=== PATIENT | female | born 1960 | race Caucasian/White ===

== ENCOUNTER → 2017-12-24 12:11 | Outpatient (CLI) | payer BC, SELFPAY ==
[2017-12-24 13:38] LABS: HCT 42.7 % (36.0-46.0); HGB 14.4 g/dL (12.0-15.5); Mean Corp. HGB Concentration 33.7 g/dL (32.0-36.0); Mean Corpuscular Volume 91.8 fL (80-95); Mean Platelet Volume 9.5 fL (8.0-11.0); Platelet Count 391 x1000/uL (130-400); RBC 4.65 m/cumm (4.00-5.20); RBC Distribution Width 13.4 % (11.7-14.6); White Blood Cell Count 5.62 k/cumm (4.4-10.8)
[2017-12-24 13:47] LABS: D-Dimer 278 ng/mlFEU (<500)
[2017-12-24 14:12] LABS: Anion Gap 12.7 mmol/L (3-11); BUN 25 mg/dL (7-18); C-Reactive Protein 0.45 mg/dL (0.0-0.3); CO2 27.3 mmol/L (21.0-32.0); CREATININE 0.85 mg/dL (0.55-1.02); Calcium 10.2 mg/dL (8.5-10.1); Chloride 99 mmol/L (98-107); FREE T4 1.07 ng/dL (0.76-1.46); Glucose 111 mg/dL (70-100); Potassium 3.7 mmol/L (3.5-5.1); Sodium 139 mmol/L (136-145); TSH 1.01 uIU/mL (0.358-3.74)
[2017-12-25 13:08] LABS: Ferritin 1376 ng/mL (8-388)
[2017-12-26 09:52] LABS: Transferrin 290 mg/dL (201-352)
[2017-12-26 11:42] LABS: Metanephrine, Free <0.20 nmol/L (<0.50); Normetanephrine, Free 0.63 nmol/L (<0.90)
== END ==
PROVIDERS: PCP Emergency Medicine; Visit Provider Emergency Medicine
DX: R79.89 Other specified abnormal findings of blood chemistry (principal); R23.2 Flushing; D64.9 Anemia, unspecified
CPT/HCPCS: 36415; 80048; 85027; 82728; 83835; 84439; 84443; 84466; 85379; 86140

== ENCOUNTER → 2017-12-26 10:07 | Outpatient (REF) | payer BC, SELFPAY ==
[2017-12-28 15:12] LABS: Metanephrines, U 106 mcg/24 h; Normetanephrine, U 533 mcg/24 h; Total Metanephrines, U 639 mcg/24 h; Urine Volume 2350 mL
[2017-12-31 09:07] LABS: 5-Hydroxyindoleacetic Acid, U 4.7 mg/24 h (<=8.0); Urine Volume 2350 mL
== END ==
LOC: LBN 10:07
PROVIDERS: PCP Emergency Medicine; Visit Provider Emergency Medicine
DX: R23.2 Flushing (principal)
CPT/HCPCS: 81050; 83497; 83835

== ENCOUNTER → 2017-12-27 10:20 | Outpatient (CLI) | payer BC, SELFPAY ==
[2017-12-27 13:14] LABS: Creatine Kinase 158 U/L (26-192)
[2017-12-27 15:22] LABS: ESR 16 MM/HR (0-30)
[2017-12-27 16:35] LABS: Ferritin 1406 ng/mL (8-388)
[2017-12-30 11:06] LABS: Transferrin 267 mg/dL (201-352)
== END ==
PROVIDERS: PCP Emergency Medicine; Visit Provider Emergency Medicine
DX: R53.83 Other fatigue (principal)
CPT/HCPCS: 36415; 82550; 85652; 82728; 84466

== ENCOUNTER → 2018-01-02 14:59 | Outpatient (CLI) | payer BC, SELFPAY ==
[2018-01-02 16:14] LABS: Iron 79 ug/dL (50-175); Total Iron Binding Capacity 283 ug/dL (250-450); Transferrin Sat 28 % (15-50)
[2018-01-02 16:27] LABS: Ferritin 806 ng/mL (8-388)
== END ==
PROVIDERS: PCP Emergency Medicine; Visit Provider Emergency Medicine
DX: D64.9 Anemia, unspecified (principal)
CPT/HCPCS: 36415; 82728; 83540; 83550

== ENCOUNTER 2018-01-22 02:20 | Outpatient (CLI) | payer BC, SELFPAY ==
--- NOTE | 2018-01-22 15:47 | DI.MAMMO_ITS ---
SYMPTOM/DIAGNOSIS: SCREENING, Z12.31 MAMMOGRAM: Mammograms were interpreted according to the usual protocol including computer analysis with CAD system, tomosynthesis and C view imaging. Comparison with prior examinations. Breast density C. No masses or microcalcifications are seen. There is nothing to suggest malignancy. IMPRESSION: Negative mammogram. Routine screening is recommended. Category I. MQSA ASSESSMENT OF FINDINGS: Negative. Category 1. Patient will receive a letter notifying them of these results. Bi-RADS category C. The breasts are heterogeneously dense, which may obscure small masses.
== END 2018-01-22 02:40 ==
PROVIDERS: PCP Emergency Medicine; Visit Provider Nurse Practitioner Family
DX: Z12.31 Encounter for screening mammogram for malignant neoplasm of breast (principal)
CPT/HCPCS: 77063; 77067

== ENCOUNTER 2018-02-12 08:46 | Outpatient (CLI) | payer BC, SELFPAY ==
[2018-02-12 10:15] LABS: Iron 105 ug/dL (50-175); Total Iron Binding Capacity 326 ug/dL (250-450); Transferrin Sat 32 % (15-50)
[2018-02-12 11:01] LABS: Ferritin 800 ng/mL (8-388)
== END 2018-02-12 09:06 ==
PROVIDERS: PCP Emergency Medicine; Visit Provider Emergency Medicine
DX: D64.9 Anemia, unspecified (principal); R79.89 Other specified abnormal findings of blood chemistry
CPT/HCPCS: 36415; 82728; 83540; 83550

== ENCOUNTER 2018-03-06 14:36 | Outpatient (CLI) | payer BC, SELFPAY ==
[2018-03-06 15:50] LABS: ALT 68 U/L (12-78); AST 30 U/L (15-37); Albumin 3.8 g/dL (3.4-5.0); Alkaline Phosphatase 61 U/L (46-116); Anion Gap 9.6 mmol/L (3-11); BUN 17 mg/dL (7-18); Bilirubin, Total 0.7 mg/dL (0.2-1.0); CO2 29.4 mmol/L (21.0-32.0); CREATININE 0.83 mg/dL (0.55-1.02); Calcium 9.5 mg/dL (8.5-10.1); Chloride 100 mmol/L (98-107); Glucose 107 mg/dL (70-100); Potassium 3.9 mmol/L (3.5-5.1); Sodium 139 mmol/L (136-145); Total Protein 7.7 g/dL (6.4-8.2)
[2018-03-13 16:56] LABS: Specimen WB Whole Blood
== END 2018-03-06 14:56 ==
PROVIDERS: PCP Emergency Medicine; Visit Provider Internal Medicine Hematology & Oncology
DX: R79.89 Other specified abnormal findings of blood chemistry (principal)
CPT/HCPCS: 36415; 80053; 81256

== ENCOUNTER 2018-04-09 16:40 | Outpatient (CLI) | payer BC, SELFPAY ==
[2018-04-09 17:03] LABS: HCT 36.8 % (36.0-46.0); HGB 12.5 g/dL (12.0-15.5); Mean Corpuscular Hemoglobin 32.5 pg (27.0-33.0); Mean Corpuscular Volume 95.6 fL (80-95); Mean Platelet Volume 9.1 fL (8.0-11.0); Platelet Count 414 x1000/uL (130-400); RBC 3.85 m/cumm (4.00-5.20); RBC Distribution Width 12.7 % (11.7-14.6)
[2018-04-09 18:06] LABS: Ferritin 590 ng/mL (8-388)
== END 2018-04-09 17:00 ==
PROVIDERS: PCP Emergency Medicine; Visit Provider Internal Medicine Hematology & Oncology
DX: E83.119 Hemochromatosis, unspecified (principal); R79.89 Other specified abnormal findings of blood chemistry
CPT/HCPCS: 36415; 85027; 82728

== ENCOUNTER 2018-04-10 02:07 | Outpatient (RCR) | payer BC, SELFPAY | END 2018-04-11 23:59 | disposition home or self-care (01) | LOC: INF 02:07 | PROVIDERS: PCP Emergency Medicine; Visit Provider Internal Medicine Hematology & Oncology | DX: E83.119 Hemochromatosis, unspecified (principal) | CPT/HCPCS: 99195 ==

== ENCOUNTER 2018-04-22 15:19 | Outpatient (CLI) | payer BC, SELFPAY ==
[2018-04-22 15:36] LABS: HCT 36.6 % (36.0-46.0); HGB 12.1 g/dL (12.0-15.5); Mean Corp. HGB Concentration 33.1 g/dL (32.0-36.0); Mean Corpuscular Volume 96.8 fL (80-95); Mean Platelet Volume 8.9 fL (8.0-11.0); Platelet Count 440 x1000/uL (130-400); RBC 3.78 m/cumm (4.00-5.20); RBC Distribution Width 13.3 % (11.7-14.6); White Blood Cell Count 5.74 k/cumm (4.4-10.8)
[2018-04-22 16:00] LABS: Ferritin 423 ng/mL (8-388)
== END 2018-04-22 15:39 ==
PROVIDERS: PCP Emergency Medicine; Visit Provider Internal Medicine Hematology & Oncology
DX: E83.119 Hemochromatosis, unspecified (principal)
CPT/HCPCS: 36415; 85027; 82728

== ENCOUNTER 2018-05-07 13:24 | Outpatient (CLI) | payer BC, SELFPAY ==
[2018-05-07 13:52] LABS: HCT 39.5 % (36.0-46.0); HGB 13.2 g/dL (12.0-15.5); Mean Corp. HGB Concentration 33.4 g/dL (32.0-36.0); Mean Corpuscular Hemoglobin 32.5 pg (27.0-33.0); Mean Corpuscular Volume 97.3 fL (80-95); Platelet Count 469 x1000/uL (130-400); RBC 4.06 m/cumm (4.00-5.20); RBC Distribution Width 13.4 % (11.7-14.6); White Blood Cell Count 6.08 k/cumm (4.4-10.8)
[2018-05-07 14:14] LABS: Ferritin 303 ng/mL (8-388)
== END 2018-05-07 13:44 ==
PROVIDERS: PCP Emergency Medicine; Visit Provider Internal Medicine Hematology & Oncology
DX: E83.119 Hemochromatosis, unspecified (principal)
CPT/HCPCS: 36415; 85027; 82728

== ENCOUNTER 2018-05-08 01:59 | Outpatient (RCR) | payer BC, SELFPAY | END 2018-05-12 23:59 | disposition home or self-care (01) | LOC: INF 01:59 | PROVIDERS: PCP Emergency Medicine; Visit Provider Internal Medicine Hematology & Oncology | DX: E83.119 Hemochromatosis, unspecified (principal) | CPT/HCPCS: 99195 ==

== ENCOUNTER 2018-05-20 15:16 | Outpatient (CLI) | payer BC, SELFPAY ==
[2018-05-20 16:20] LABS: HCT 37.8 % (36.0-46.0); HGB 12.2 g/dL (12.0-15.5); Mean Corp. HGB Concentration 32.3 g/dL (32.0-36.0); Mean Corpuscular Hemoglobin 31.7 pg (27.0-33.0); Mean Corpuscular Volume 98.2 fL (80-95); Mean Platelet Volume 9.2 fL (8.0-11.0); Platelet Count 483 x1000/uL (130-400); RBC 3.85 m/cumm (4.00-5.20); RBC Distribution Width 13.3 % (11.7-14.6)
[2018-05-20 17:11] LABS: Ferritin 236 ng/mL (8-388)
== END 2018-05-20 15:36 ==
PROVIDERS: PCP Emergency Medicine; Visit Provider Internal Medicine Hematology & Oncology
DX: E83.119 Hemochromatosis, unspecified (principal)
CPT/HCPCS: 36415; 85027; 82728

== ENCOUNTER 2018-06-03 15:25 | Outpatient (CLI) | payer BC, SELFPAY ==
[2018-06-03 15:54] LABS: HCT 40.3 % (36.0-46.0); HGB 13.2 g/dL (12.0-15.5); Mean Corp. HGB Concentration 32.8 g/dL (32.0-36.0); Mean Corpuscular Hemoglobin 31.6 pg (27.0-33.0); Mean Corpuscular Volume 96.4 fL (80-95); Mean Platelet Volume 8.9 fL (8.0-11.0); Platelet Count 492 x1000/uL (130-400); RBC 4.18 m/cumm (4.00-5.20); RBC Distribution Width 12.8 % (11.7-14.6); White Blood Cell Count 6.23 k/cumm (4.4-10.8)
[2018-06-03 16:34] LABS: Ferritin 260 ng/mL (8-388)
== END 2018-06-03 15:45 ==
PROVIDERS: PCP Emergency Medicine; Visit Provider Internal Medicine Hematology & Oncology
DX: E83.119 Hemochromatosis, unspecified (principal); D64.9 Anemia, unspecified
CPT/HCPCS: 36415; 85027; 82728

== ENCOUNTER 2018-06-04 01:54 | Outpatient (RCR) | payer BC, SELFPAY | END 2018-06-12 23:59 | disposition home or self-care (01) | LOC: INF 01:54 | PROVIDERS: PCP Emergency Medicine; Visit Provider Internal Medicine Hematology & Oncology | DX: E83.119 Hemochromatosis, unspecified (principal) | CPT/HCPCS: 99195 ==

== ENCOUNTER 2018-06-17 15:24 | Outpatient (CLI) | payer BC, SELFPAY ==
[2018-06-17 16:06] LABS: HCT 39.1 % (36.0-46.0); HGB 12.5 g/dL (12.0-15.5); Mean Corpuscular Hemoglobin 30.8 pg (27.0-33.0); Mean Corpuscular Volume 96.3 fL (80-95); Mean Platelet Volume 9.1 fL (8.0-11.0); Platelet Count 459 x1000/uL (130-400); RBC 4.06 m/cumm (4.00-5.20); White Blood Cell Count 6.04 k/cumm (4.4-10.8)
[2018-06-17 16:33] LABS: Ferritin 154 ng/mL (8-388)
== END 2018-06-17 15:44 ==
PROVIDERS: PCP Emergency Medicine; Visit Provider Internal Medicine Hematology & Oncology
DX: E83.119 Hemochromatosis, unspecified (principal)
CPT/HCPCS: 36415; 85027; 82728

== ENCOUNTER 2018-07-01 15:33 | Outpatient (CLI) | payer BC, SELFPAY ==
[2018-07-01 15:59] LABS: Abs Immature Grans 0.02 k/cumm (0.0-0.09); Absolute Basophil Count 0.05 k/cumm (0.0-0.2); Absolute Eosinophil Count 0.14 k/cumm (0.0-0.7); Absolute Lymphocyte Count 2.67 k/cumm (1.2-3.4); Absolute Monocyte Count 0.46 k/cumm (0.11-0.7); Absolute Neutrophil Count 2.46 k/cumm (1.2-6.7); Basophils % 0.9; Eosinophils % 2.4; HCT 38.5 % (36.0-46.0); HGB 12.5 g/dL (12.0-15.5); Immature Grans % 0.3; Mean Corp. HGB Concentration 32.5 g/dL (32.0-36.0); Mean Corpuscular Hemoglobin 30.9 pg (27.0-33.0); Mean Corpuscular Volume 95.1 fL (80-95); Mean Platelet Volume 8.9 fL (8.0-11.0); Monocytes % 7.9; Neutrophils % 42.5; Platelet Count 495 x1000/uL (130-400); RBC 4.05 m/cumm (4.00-5.20); RBC Distribution Width 13.1 % (11.7-14.6)
[2018-07-01 16:20] LABS: Ferritin 132 ng/mL (8-388)
== END 2018-07-01 15:53 ==
PROVIDERS: PCP Emergency Medicine; Visit Provider Internal Medicine Hematology & Oncology
DX: R79.89 Other specified abnormal findings of blood chemistry (principal)
CPT/HCPCS: 36415; 82728; 85025

== ENCOUNTER 2018-07-02 00:56 | Outpatient (RCR) | payer BC, SELFPAY | END 2018-07-10 23:59 | disposition home or self-care (01) | LOC: INF 00:56 | PROVIDERS: PCP Emergency Medicine; Visit Provider Internal Medicine Hematology & Oncology | DX: E83.119 Hemochromatosis, unspecified (principal) | CPT/HCPCS: 99195 ==

== ENCOUNTER 2018-07-15 15:18 | Outpatient (CLI) | payer BC, SELFPAY ==
[2018-07-15 15:33] LABS: Abs Immature Grans 0.01 k/cumm (0.0-0.09); HCT 37.5 % (36.0-46.0); HGB 12.4 g/dL (12.0-15.5); Mean Corp. HGB Concentration 33.1 g/dL (32.0-36.0); Mean Corpuscular Hemoglobin 30.8 pg (27.0-33.0); Mean Corpuscular Volume 93.1 fL (80-95); Mean Platelet Volume 9.3 fL (8.0-11.0); Platelet Count 401 x1000/uL (130-400); RBC 4.03 m/cumm (4.00-5.20); RBC Distribution Width 12.9 % (11.7-14.6); White Blood Cell Count 3.96 k/cumm (4.4-10.8)
[2018-07-15 15:52] LABS: Absolute Neutrophil Count 1.03 k/cumm (1.2-6.7)
[2018-07-15 15:53] LABS: Absolute Eosinophil Count 0.04 k/cumm (0.0-0.7); Absolute Lymphocyte Count 2.53 k/cumm (1.2-3.4); Absolute Monocyte Count 0.36 k/cumm (0.11-0.7); Atypical Lymphocytes % 4; Diff Comment Manual Differential; RBC Morphology Normal
[2018-07-15 16:02] LABS: Ferritin 188 ng/mL (8-388)
== END 2018-07-15 15:38 ==
PROVIDERS: PCP Emergency Medicine; Visit Provider Internal Medicine Hematology & Oncology
DX: R79.89 Other specified abnormal findings of blood chemistry (principal)
CPT/HCPCS: 36415; 82728; 85025

== ENCOUNTER 2018-07-29 15:25 | Outpatient (CLI) | payer BC, SELFPAY ==
[2018-07-29 16:10] LABS: Abs Immature Grans 0.01 k/cumm (0.0-0.09); Absolute Basophil Count 0.08 k/cumm (0.0-0.2); Absolute Eosinophil Count 0.18 k/cumm (0.0-0.7); Absolute Lymphocyte Count 3.04 k/cumm (1.2-3.4); Absolute Monocyte Count 0.54 k/cumm (0.11-0.7); Absolute Neutrophil Count 2.28 k/cumm (1.2-6.7); Basophils % 1.3; Eosinophils % 2.9; HCT 36.5 % (36.0-46.0); HGB 11.8 g/dL (12.0-15.5); Immature Grans % 0.2; Lymphocytes % 49.6; Mean Corp. HGB Concentration 32.3 g/dL (32.0-36.0); Mean Corpuscular Hemoglobin 30.3 pg (27.0-33.0); Mean Corpuscular Volume 93.8 fL (80-95); Mean Platelet Volume 9.3 fL (8.0-11.0); Monocytes % 8.8; Neutrophils % 37.2; Platelet Count 532 x1000/uL (130-400); RBC 3.89 m/cumm (4.00-5.20); RBC Distribution Width 13.9 % (11.7-14.6); White Blood Cell Count 6.13 k/cumm (4.4-10.8)
[2018-07-29 16:24] LABS: Ferritin 70 ng/mL (8-388)
== END 2018-07-29 15:45 ==
PROVIDERS: PCP Emergency Medicine; Visit Provider Internal Medicine Hematology & Oncology
DX: R79.89 Other specified abnormal findings of blood chemistry (principal)
CPT/HCPCS: 36415; 80053; 82728; 85025

== ENCOUNTER 2018-07-30 01:39 | Outpatient (RCR) | payer BC, SELFPAY | END 2018-08-10 23:59 | disposition home or self-care (01) | LOC: INF 01:39 | PROVIDERS: PCP Emergency Medicine; Visit Provider Internal Medicine Hematology & Oncology | DX: E83.119 Hemochromatosis, unspecified (principal) | CPT/HCPCS: 99195 ==

== ENCOUNTER 2018-08-05 11:00 | Outpatient (CLI) | payer BC, SELFPAY ==
[2018-08-05 13:13] LABS: GGT 76 U/L (5-55)
[2018-08-06 16:22] LABS: Cholesterol 341 mg/dL (50-200); HDL Cholesterol 59 mg/dL (40-60); LDL CHOLESTEROL 230 mg/dL (<100); Triglyceride 265 mg/dL (30-150)
== END 2018-08-05 11:20 ==
PROVIDERS: PCP Emergency Medicine; Visit Provider Emergency Medicine
DX: E78.5 Hyperlipidemia, unspecified (principal)
CPT/HCPCS: 36415; 80061; 83721; 82977

== ENCOUNTER 2018-08-08 15:22 | Outpatient (CLI) | payer BC, SELFPAY ==
[2018-08-08 16:03] LABS: HCT 38.2 % (36.0-46.0); HGB 12.5 g/dL (12.0-15.5); Mean Corp. HGB Concentration 32.7 g/dL (32.0-36.0); Mean Corpuscular Hemoglobin 30.4 pg (27.0-33.0); Mean Corpuscular Volume 92.9 fL (80-95); Mean Platelet Volume 9.2 fL (8.0-11.0); Platelet Count 399 x1000/uL (130-400); RBC 4.11 m/cumm (4.00-5.20); RBC Distribution Width 14.2 % (11.7-14.6); White Blood Cell Count 5.13 k/cumm (4.4-10.8)
[2018-08-08 16:51] LABS: ALT 53 U/L (12-78); AST 25 U/L (15-37); Albumin 3.9 g/dL (3.4-5.0); Alkaline Phosphatase 55 U/L (46-116); Bilirubin, Direct 0.11 mg/dL (0.00-0.20); Bilirubin, Total 0.5 mg/dL (0.2-1.0); C-Reactive Protein 0.34 mg/dL (0.0-0.3); Total Protein 7.8 g/dL (6.4-8.2)
[2018-08-11 11:08] LABS: Hepatitis A Antibody IgM Negative (NEGAT); Hepatitis B Core Antibody Negative (NEGAT); Hepatitis B surface Ag Negative (NEGAT); Hepatitis C Ab w Rflx HCV PCR Negative (NEGAT)
== END 2018-08-08 15:42 ==
PROVIDERS: PCP Emergency Medicine; Visit Provider Emergency Medicine
DX: R94.5 Abnormal results of liver function studies (principal)
CPT/HCPCS: 36415; 80076; 85027; 86704; 86709; 86803; 87340; 86140

== ENCOUNTER 2018-09-09 07:05 | Outpatient (CLI) | payer BC, SELFPAY ==
[2018-09-09 07:57] LABS: Absolute Basophil Count 0.07 k/cumm (0.0-0.2); Absolute Eosinophil Count 0.27 k/cumm (0.0-0.7); Absolute Lymphocyte Count 2.77 k/cumm (1.2-3.4); Absolute Monocyte Count 0.45 k/cumm (0.11-0.7); Absolute Neutrophil Count 2.09 k/cumm (1.2-6.7); Basophils % 1.2; Eosinophils % 4.8; HCT 41.9 % (36.0-46.0); HGB 13.5 g/dL (12.0-15.5); Mean Corp. HGB Concentration 32.2 g/dL (32.0-36.0); Mean Corpuscular Hemoglobin 29.2 pg (27.0-33.0); Mean Corpuscular Volume 90.7 fL (80-95); Mean Platelet Volume 9.5 fL (8.0-11.0); Platelet Count 418 x1000/uL (130-400); RBC 4.62 m/cumm (4.00-5.20); RBC Distribution Width 13.5 % (11.7-14.6); White Blood Cell Count 5.65 k/cumm (4.4-10.8)
[2018-09-09 08:30] LABS: ALT 61 U/L (12-78); AST 22 U/L (15-37); Albumin 3.7 g/dL (3.4-5.0); Alkaline Phosphatase 62 U/L (46-116); Anion Gap 11.2 mmol/L (3-11); BUN 26 mg/dL (7-18); Bilirubin, Total 0.5 mg/dL (0.2-1.0); CO2 27.8 mmol/L (21.0-32.0); CREATININE 0.89 mg/dL (0.55-1.02); Calcium 9.2 mg/dL (8.5-10.1); Chloride 101 mmol/L (98-107); Glucose 98 mg/dL (70-100); Potassium 3.7 mmol/L (3.5-5.1); Sodium 140 mmol/L (136-145); Total Protein 7.4 g/dL (6.4-8.2)
[2018-09-09 08:33] LABS: Cholesterol 167 mg/dL (50-200); GGT 56 U/L (5-55); HDL Cholesterol 42 mg/dL (40-60); LDL CHOLESTEROL 96 mg/dL (<100); Triglyceride 123 mg/dL (30-150)
[2018-09-11 16:18] LABS: Ferritin 79 ng/mL (8-388)
== END 2018-09-09 07:25 ==
PROVIDERS: PCP Emergency Medicine; Referring Provider Internal Medicine Hematology & Oncology; Visit Provider Emergency Medicine
DX: E78.5 Hyperlipidemia, unspecified (principal); R74.8 Abnormal levels of other serum enzymes; R79.89 Other specified abnormal findings of blood chemistry
CPT/HCPCS: 36415; 80053; 80061; 83721; 82728; 82977; 85025

== ENCOUNTER 2018-12-12 04:15 | Outpatient (CLI) | payer BC, SELFPAY ==
[2018-12-12 08:31] LABS: Iron 90 ug/dL (50-175); Total Iron Binding Capacity 327 ug/dL (250-450); Transferrin Sat 28 % (15-50)
[2018-12-12 08:43] LABS: Calculated LDL 232 mg/dL; Cholesterol 318 mg/dL (50-200); Ferritin 183 ng/mL (8-388); GGT 49 U/L (5-55); HDL Cholesterol 51 mg/dL (40-60); TSH 1.21 uIU/mL (0.36-3.74); Triglyceride 179 mg/dL (30-150)
== END 2018-12-12 04:35 ==
PROVIDERS: PCP Emergency Medicine; Visit Provider Emergency Medicine
DX: E03.9 Hypothyroidism, unspecified (principal); E83.119 Hemochromatosis, unspecified
CPT/HCPCS: 36415; 80061; 83721; 82728; 82977; 83540; 83550; 84443

== ENCOUNTER 2019-01-29 01:04 | Outpatient (CLI) | payer BC, SELFPAY ==
--- NOTE | 2019-01-29 15:30 | DI.MAMMO_ITS ---
EXAM: MG MAMMO SCREENING CLINICAL HISTORY: Screening,z12.31 TECHNIQUE: Bilateral full field digital CC and MLO mammographic images were obtained with 3D tomosyn thesis and utilizing computer aided detection (CAD). FINDINGS: Comparison is made with previous images. The breast tissue is heterogeneously radiodense which lowers the sensitivity of the examination. There is no dominant mass. There are no suspicious calcificati ons. There is a question regarding interval development of a small nodular density in the lateral luque bareolar portion of the right breast. IMPRESSION: Further assessment of this patient with craniocaudad compression spot image and ultrasound is recomme nded. Category Breast Density - Category C - Heterogeneously dense. Breast density, category C. BI-RADS Cat 0 - Assessment Incomplete: Need additional imaging evaluation.
== END 2019-01-29 01:24 ==
PROVIDERS: PCP Emergency Medicine; Visit Provider Nurse Practitioner Family
DX: Z12.31 Encounter for screening mammogram for malignant neoplasm of breast (principal); R92.8 Other abnormal and inconclusive findings on diagnostic imaging of breast
CPT/HCPCS: 77063; 77067

== ENCOUNTER 2019-02-05 00:49 | Outpatient (CLI) | payer BC, SELFPAY ==
--- NOTE | 2019-02-05 14:45 | DI.MAMMO_ITS ---
EXAM: MG MAMMO SCREEN CALL BACK UNI AND US BREAST RT LIMITED CLINICAL HISTORY: DEVELOPMENT OF SMALL NODULAR DENSITY IN LATERAL SUBAREOLAR PORTION, RT BREAST. TECHNIQUE: Additional images are interpreted according to the usual protocol including tomosynthesis and 2D imaging. Ultrasound performed using standard protocol. COMPARISON: Mammogram of 01/29/19 FINDINGS: Additional mammographic views of the right breast and right breast ultrasound are interpreted in conj unction. These examinations were obtained to evaluate questionable area of asymmetric density seen i n the lateral retroareolar portion of the right breast on CC view of recent mammogram. Additional ma mmographic views fail to show a discrete mass. Breast ultrasound shows no evidence of mass or cyst. IMPRESSION: No specific evidence of malignancy at this time. Follow-up unilateral right breast mammogram recommen ded in 6 months. Category 3, breast density category C. BI-RADS Cat 3 - 6 month - Probably Benign Finding: Recommend follow-up mammography in 6 months Breast Density - Category C - Heterogeneously dense
== END 2019-02-05 01:09 ==
PROVIDERS: PCP Emergency Medicine; Visit Provider Nurse Practitioner Family
DX: Z12.31 Encounter for screening mammogram for malignant neoplasm of breast (principal); R92.8 Other abnormal and inconclusive findings on diagnostic imaging of breast; N64.59 Other signs and symptoms in breast
CPT/HCPCS: 76642; 77063; 77067

== ENCOUNTER 2019-02-10 01:37 | Outpatient (CLI) | payer BC, SELFPAY ==
[2019-02-10 08:34] LABS: Calculated LDL 128 mg/dL; Cholesterol 217 mg/dL (50-200); HDL Cholesterol 55 mg/dL (40-60); Triglyceride 174 mg/dL (30-150)
== END 2019-02-10 01:57 ==
PROVIDERS: PCP Emergency Medicine; Visit Provider Emergency Medicine
DX: E78.5 Hyperlipidemia, unspecified (principal)
CPT/HCPCS: 36415; 80061; 82728; 85025

== ENCOUNTER 2019-05-15 07:58 | Outpatient (CLI) | payer BC, SELFPAY ==
[2019-05-15 09:23] LABS: ALT 41 U/L (14-59); Calculated LDL 195 mg/dL; Cholesterol 285 mg/dL (<200); Glucose 98 mg/dL (74-106); HDL Cholesterol 46 mg/dL (40-60); TSH 2.13 uIU/mL (0.36-3.74); Triglyceride 224 mg/dL (<150)
[2019-05-16 15:18] LABS: Lipoprotein (a) 7 mg/dL (<=30)
== END 2019-05-15 08:18 ==
PROVIDERS: PCP Emergency Medicine; Visit Provider Internal Medicine
DX: E78.01 Familial hypercholesterolemia (principal)
CPT/HCPCS: 36415; 80061; 82947; 83695; 84443; 84460

== ENCOUNTER 2019-08-06 01:04 | Outpatient (CLI) | payer BC, SELFPAY ==
--- NOTE | 2019-08-06 13:40 | DI.MAMMO_ITS ---
EXAM: MG MAMMO DIAGNOSTIC UNI CLINICAL HISTORY: 6-MONTH F/U TO JAN 2019 MAMMO. COMPARISON: Priors available for comparison. TECHNIQUE: Craniocaudal and mediolateral oblique Full Field Digital Mammography views of the right b reast with Computer Aided Diagnosis. FINDINGS: Mammography/Tomosynthesis: Masses/Architectural Distortion: None seen. Microcalcifictions: No suspicious pleomorphic-type are seen. Skin Thickening/Nipple Retraction: None. IMPRESSION: 1. No evidence of malignancy is noted. 2. Unless there is more urgent need, follow-up screening mammography is recommended, as per [place] [employer] guidelines. BI-RADS Cat 1 - Negative Breast Density - Category C - Heterogeneously dense The findings were discussed with the patient on the date of the examination. The mammogram demonstrates the patient's breast tissue is dense. Dense breast tissue is very common a nd is not abnormal but dense breast tissue can make it harder to find cancer on a mammogram. Also, de nse breast tissue may increase their breast cancer risk. This [facility] was provided to the patient to raise their awareness. Use this report when you speak wi th the patient about their risks for breast cancer, which includes their family history. At that time , you may recommend for more screening tests (Ultrasound or MRI) as they might be useful based on the ir risk. A negative radiographic report should not delay biopsy if a dominant or clinically suspicious mass is present. Up to ten percent of cancers are not identified on mammography. A negative report may reinforce clinical impression. Adenosis and dense breasts may obscure an underlying neoplasm. False positive reports average 6 to 10%. Patient will receive a letter notifying them of these results.
== END 2019-08-06 01:24 ==
PROVIDERS: PCP Emergency Medicine; Visit Provider Nurse Practitioner Family
DX: Z12.31 Encounter for screening mammogram for malignant neoplasm of breast (principal); R92.8 Other abnormal and inconclusive findings on diagnostic imaging of breast; N64.59 Other signs and symptoms in breast
CPT/HCPCS: 77061; 77065; G0279

== ENCOUNTER 2019-09-29 03:04 | Outpatient (CLI) | payer BC, SELFPAY ==
[2019-09-29 10:47] LABS: ALT 48 U/L (14-59); Calculated LDL 123 mg/dL (<100); Cholesterol 215 mg/dL (<200); Glucose 108 mg/dL (74-106); HDL Cholesterol 66 mg/dL (40-60); TSH 0.56 uIU/mL (0.36-3.74); Triglyceride 130 mg/dL (<150)
[2019-09-30 12:03] LABS: Lipoprotein (a) 8 mg/dL (<=30)
== END 2019-09-29 03:24 ==
PROVIDERS: PCP Emergency Medicine; Visit Provider Internal Medicine
DX: E78.01 Familial hypercholesterolemia (principal)
CPT/HCPCS: 36415; 80061; 82947; 83695; 84443; 84460

== ENCOUNTER 2019-10-13 12:51 | Outpatient (CLI) | payer BC, SELFPAY ==
--- NOTE | 2019-10-13 13:00 | DI.DEXA_ITS ---
EXAM: XR DEXA BONE DENSITY W/WO CEE CLINICAL HISTORY: Hypothyroidism and hyperlipidemia. Possible medic E03.9 hypothyroidism TECHNIQUE: COMPARISON: No exams were available for comparison FINDINGS: DEXA scan was performed according to the usual protocol. Please see the accompanying data sheets. F indings for left hip scanning are T-score 0.3 with left femoral neck T-score -0.7. Findings for lumbar spine scanning are T-score 0.3. Findings for left forearm scanning are T-score -0.6. IMPRESSION: Findings are consistent with normal bone density according to the WHO criteria. The lateral vertebral scanogram shows no evidence of a vertebral compression fracture.
== END 2019-10-13 13:11 ==
PROVIDERS: PCP Emergency Medicine; Visit Provider Emergency Medicine
DX: E03.9 Hypothyroidism, unspecified (principal); Z13.820 Encounter for screening for osteoporosis; E78.5 Hyperlipidemia, unspecified
CPT/HCPCS: 77080

== ENCOUNTER 2019-12-28 10:59 | Outpatient (REF) | payer BC, SELFPAY ==
--- NOTE | 2019-12-28 10:45 | PAPFT_PTH ---
PATIENT: Tarsha Pedraza LOC: [facility] U#:[id number] AGE/SX: 59/F ROOM: RE12/28/[address]: BRITTNEY Tinoco : 1960 BED: DIS: 12/28/2019 SPEC #: [id number] RECD: 12/28/19 12:29 STATUS: VICKI REQ #: [id number] RAINA: 12/28/19 10:[address]: Patricia Mcdonald DEPT: [facility] Cytology RECD BY: Tere Renteria ENTERED: 12/28/19 12:30 SP TYPE: PAPFT OTHR DR: Arnaldo Marcus, Tissues: 1 - CX/ENDOCX FOR PAP SMEARS Procedures: PAP THIN PREP/UVM Screening HPV DNA PROBE Comments: [id number]
== END 2019-12-28 11:19 ==
LOC: LBN 10:59
PROVIDERS: PCP Emergency Medicine; Visit Provider Nurse Practitioner Family
DX: Z11.51 Encounter for screening for human papillomavirus (HPV) (principal)
CPT/HCPCS: 88142; 87624

== ENCOUNTER 2020-02-01 00:36 | Outpatient (CLI) | payer BC, SELFPAY ==
--- NOTE | 2020-02-01 08:59 | DI.MAMMO_ITS ---
EXAM: MG MAMMO SCREENING CLINICAL HISTORY: screening,Z12.39 TECHNIQUE: Bilateral full field digital CC and MLO mammographic images were obtained with 3D tomosyn thesis and utilizing computer aided detection (CAD). COMPARISON: Available for comparison. FINDINGS: Masses/Architectural Distortion: None seen. Microcalcifications: No suspicious pleomorphic-type are seen. Skin Thickening/Nipple Retraction: None. IMPRESSION: 1. No significant interval change with no specific features of malignancy noted. 2. Unless there is more urgent need, screening mammography is recommended, as per [place] [employer] guidelines. BI-RADS Category 1 - Negative Breast Density - Category C - Heterogeneously dense The mammogram demonstrates the patient's breast tissue is dense. Dense breast tissue is very common a nd is not abnormal but dense breast tissue can make it harder to find cancer on a mammogram. Also, de nse breast tissue may increase their breast cancer risk. This information about the result of the [facility] mogram report was provided to the patient to raise their awareness. Use this report when you speak wi th the patient about their risks for breast cancer, which includes their family history. At that time , you may recommend for more screening tests (Ultrasound or MRI) as they might be useful based on the ir risk. A negative radiographic report should not delay biopsy if a dominant or clinically suspicious mass is present. Up to ten percent of cancers are not identified on mammography. A negative report may reinforce clinical impression. Adenosis and dense breasts may obscure an underlying neoplasm. False positive reports average 6 to 10%. Patient will receive a letter notifying them of these results.
== END 2020-02-01 00:56 ==
PROVIDERS: PCP Emergency Medicine; Visit Provider Nurse Practitioner Family
DX: Z12.31 Encounter for screening mammogram for malignant neoplasm of breast (principal); R92.2 Inconclusive mammogram
CPT/HCPCS: 77063; 77067

== ENCOUNTER 2020-03-18 07:33 | Day surgery (SDC) | payer BC, SELFPAY ==
[2020-03-18 07:48] VITALS: BP 156/95; PULSE 86; RESP 18; TEMP 36.4; O2SAT 98
[2020-03-18] MEDS: Lactated Ringers 1,000 ML 80 ML IV (08:06)
--- NOTE | 2020-03-18 09:24 | W.PM.DSUDISC ---
Discharge Plan Disposition Patient Disposition: HOME Condition: Good Discharge Details Reason For Visit: Colonoscopy Attending Provider: Irene Gambino Primary Care Provider: Arnaldo Marcus Home Meds and New Rx's Prescriptions: Continued ezetimibe 10 mg tablet 10 mg PO DAILY RF: 0 cholecalciferol (vitamin D3) 25 mcg (1,000 unit) capsule 25 mcg PO DAILY RF: 0 amlodipine 5 mg tablet 5 mg PO DAILY Qty: 90 RF: 4 levothyroxine [Synthroid] 88 mcg tablet 88 mcg PO DAILY Qty: 90 RF: 4 losartan-hydrochlorothiazide [Hyzaar] 100-25 mg tablet 1 tab PO DAILY Qty: 90 RF: 4 rosuvastatin 5 mg tablet 5 mg PO DAILY Qty: 90 RF: 2 Discontinued polyethylene glycol 3350 17 gram/dose powder 238 g PO ONCE Qty: 238 RF: 0 bisacodyl [Dulcolax (bisacodyl)] 5 mg tablet,delayed release (DR/EC) 5 mg PO ONCE Qty: 4 RF: 0 Discharge Instructions Additional Instructions: Findings: Your colonoscopy was normal. Follow up: Plan for routine screening in 10 years or sooner if symptoms such as abdominal pain, change in bowel habits or blood in stool occurs. Please call if you develop: fevers >101.5 Nausea or Vomiting Abdominal pain that is not transient DAY SURGERY UNIT POST COLONOSCOPY INSTRUCTIONS 1. Because there will be medication in your system for the next 24 hours, you may feel a little sleepy. Your coordination will be affected. Therefore: a. Do not drive or operate dangerous equipment for 24 hours. b. Do not drink alcohol beverages for 24 hours (not even beer). c. Plan to go home and rest for the day. 2. Generally there are no restrictions on your activity after a day or so has gone by, but you may feel a bit fatigued for a few days. 3 After you arrive home you may have a light meal and return to a normal diet as you can tolerate it without feeling sick to your stomach. 4. After surgery, you may feel pain or discomfort. This should be only transient, but if it persists please contact your doctor. 5. If there are any questions regarding the findings of your procedure, please feel free to contact your doctor. 6. If you are unable to contact your doctor with a problem, contact the hospital at [phone]. 7. Continue all your regular medications unless directed otherwise. I understand the above instructions and have no questions. Signature of Patient or Responsible Adult Escort Date/Time Name of Responsible Adult Escort Signature of Nurse Date/Time Activity:: Activity as Tolerated Diet:: As Tolerated Discharge Orders Discharge Orders: Discharge Order (Routine); Ordered 03/18/20 Ordered By: Irene Gambino DS: Diagnosis Discharge Diagnosis (1) Normal colonoscopy: Status: Acute
[2020-03-18 09:54] VITALS: BP 132/81; PULSE 65; RESP 18; TEMP 36.1; O2SAT 97
--- NOTE | 2020-03-20 19:19 | COLE_ITS ---
Colonoscopy Report Date of procedure: 03/18/20 Pre-op diagnosis general: Screening Post-op diagnosis procedure note: other (Normal colon) Procedure: Colonoscopy Surgeon: Irene Gambino Anesthesia proc note operative: MAC Indications: This 60 year old woman presents for routine screening colonoscopy. Her prior in 2009 was normal. She has no symptoms or FH colon cancer. Procedure Description: The patient was placed in the left Tobar position. Propofol was titrated to sedation. Digital rectal examination revealed no abno rmalities. The scope was advanced to the cecum without difficulty. The ileocecal valve and appendiceal orifice were clearly identified. The prep was good. The scope was slowly withdrawn over the course of greater than 6 minutes with no abnormalities seen in the ascending, transverse, descending, sigmoid colon or rectum including on retroflexed view. The patient tolerated the procedure well and was stable to recovery. Plan for routine screening colonoscopy in 10 years or sooner if symptoms indicate.
== END 2020-03-18 10:11 | disposition home or self-care (01) ==
PROVIDERS: PCP Emergency Medicine; Visit Provider Surgery
PROC: 0DJD8ZZ Inspection of Lower Intestinal Tract, Via Natural or Artificial Opening Endoscopic (ICD-10-PCS; CPT 45378; principal; 2020-03-18 09:00)
DX: Z12.11 Encounter for screening for malignant neoplasm of colon (principal); E03.9 Hypothyroidism, unspecified; I10 Essential (primary) hypertension
CPT/HCPCS: 45378; J2001

== ENCOUNTER 2020-04-04 03:22 | Outpatient (CLI) | payer BC, SELFPAY ==
[2020-04-04 16:56] LABS: Anion Gap 11.7 mmol/L (3-11); BUN 27 mg/dL (7-18); CO2 29.3 mmol/L (21.0-32.0); CREATININE 1.33 mg/dL (0.55-1.02); Calcium 9.4 mg/dL (8.5-10.1); Chloride 100 mmol/L (98-107); Estimated GFR 40.43 (mL/min/1.73m2); Ferritin 280 ng/mL (8-252); Glucose 105 mg/dL (74-106); Potassium 3.9 mmol/L (3.5-5.1); Sodium 141 mmol/L (136-145)
== END 2020-04-04 03:42 ==
PROVIDERS: PCP Emergency Medicine; Visit Provider Emergency Medicine
DX: E78.5 Hyperlipidemia, unspecified (principal); E83.119 Hemochromatosis, unspecified; I10 Essential (primary) hypertension
CPT/HCPCS: 36415; 80048; 82728

== ENCOUNTER 2020-04-21 05:07 | Outpatient (CLI) | payer BC, SELFPAY ==
[2020-04-21 13:33] LABS: Anion Gap 7.3 mmol/L (3-11); BUN 19 mg/dL (7-18); CO2 27.7 mmol/L (21.0-32.0); CREATININE 0.96 mg/dL (0.55-1.02); Calcium 9.6 mg/dL (8.5-10.1); Chloride 101 mmol/L (98-107); Estimated GFR 58.89 (mL/min/1.73m2); Glucose 176 mg/dL (74-106); Potassium 3.7 mmol/L (3.5-5.1); Sodium 136 mmol/L (136-145)
== END 2020-04-21 05:27 ==
PROVIDERS: PCP Emergency Medicine; Visit Provider Emergency Medicine
DX: I10 Essential (primary) hypertension (principal)
CPT/HCPCS: 36415; 80048

== ENCOUNTER 2020-05-10 08:17 | Outpatient (CLI) | payer BC, SELFPAY ==
[2020-05-11 14:50] LABS: COVID-19 RT-PCR UVMMC Result Negative (Negative)
== END 2020-05-10 08:37 ==
PROVIDERS: PCP Emergency Medicine; Visit Provider Emergency Medicine
DX: Z20.828 Contact with and (suspected) exposure to other viral communicable diseases (principal)
CPT/HCPCS: U0003

== ENCOUNTER 2020-05-17 03:23 | Outpatient (CLI) | payer BC, SELFPAY ==
[2020-05-17 09:31] LABS: Hemoglobin A1C 5.7 % (<5.7)
[2020-05-17 11:09] LABS: Glucose 101 mg/dL (74-106)
[2020-05-17 11:14] LABS: Calculated LDL 105 mg/dL (<100); Cholesterol 185 mg/dL (<200); HDL Cholesterol 50 mg/dL (40-60); Triglyceride 150 mg/dL (<150)
== END 2020-05-17 03:43 ==
PROVIDERS: PCP Emergency Medicine; Visit Provider Internal Medicine
DX: E78.01 Familial hypercholesterolemia (principal); E11.65 Type 2 diabetes mellitus with hyperglycemia
CPT/HCPCS: 36415; 80061; 82947; 83036

== ENCOUNTER 2020-07-25 01:26 | Outpatient (CLI) | payer BC, SELFPAY ==
--- NOTE | 2020-07-25 06:45 | DI.RAD_ITS ---
EXAM: XR KNEE LT 3V AP,LAT,KAYLEEN CLINICAL HISTORY: left knee pain,M25.562. TECHNIQUE: 2D digital imaging was performed. COMPARISON: No exams were available for comparison FINDINGS: There is no evidence fracture although there appears to be a small joint effusion. Also mild degener ative changes are noted in the medial compartment. No osseous lesions. Bone density normal. IMPRESSION: Medial compartment degenerative changes. Small joint effusion. Sign rib DATA REPOSITORY: RADIATION DOSE DELIVERED:
== END 2020-07-25 01:46 ==
PROVIDERS: PCP Emergency Medicine; Visit Provider Emergency Medicine
DX: M17.12 Unilateral primary osteoarthritis, left knee (principal); M25.462 Effusion, left knee
CPT/HCPCS: 73562

== ENCOUNTER 2021-03-02 02:12 | Outpatient (CLI) | payer BC, SELFPAY ==
--- NOTE | 2021-03-02 06:40 | DI.MAMMO_ITS ---
Exam(s) MAMMO SCREENING EXAM: MAMMO SCREENING CLINICAL HISTORY: screening,Z12.39. TECHNIQUE: Bilateral full field digital CC and MLO mammographic images were obtained with 3D tomosyn thesis and utilizing computer aided detection (CAD). COMPARISON: Prior mammograms dating back to 2011, the most recent being January 2020. FINDINGS: Fibroglandular tissue pattern again noted be dense, this decreasing the sensitivity mammogram for fin ding in underlying lesions No obvious new findings in the left breast. Towards the medial aspect right breast there lobulated asymmetric density located 0.5 cm in from nipp le measuring by 5 x 4 millimeters. This finding has been present on prior 3D mammography but appears to slightly increased in size, pres ently measuring 5 by 4 millimeters. Recommend ultrasound. There are no malignant-appearing microcal cification groups in this region or elsewhere in either breast. No new architectural distortion or s kin thickening-traction. IMPRESSION: Dense bilateral fibroglandular tissue. No obvious radiographic evidence of malignancy in left breast . Slightly lobulated noncalcified nodule medially in the right breast, slightly increased in size fr om prior mammograms. Recommend spot compression view and ultrasound. BI-RADS Category 0 - Assessment Incomplete: Need additional imaging evaluation Breast Density - Category C - Heterogeneously dense Breast density Category C or D implies that the patient has dense breast tissue. Dense breast tissue can make it harder to find cancer on a mammogram. Dense breast tissue is also associated with an incr eased risk of breast cancer. This information about the result of the mammogram report was provided to the patient to raise their awareness. Use this report when you speak with the patient about their risks for breast cancer, which includes their family history. At that time, you may recommend additional screening tests (Ultrasoun d or MRI) as these tests may add significant information. A negative radiographic report should not delay biopsy if a dominant or clinically suspicious mass is present. Up to ten percent of cancers are not identified on mammography. A negative report may reinforce clinical impression. Adenosis and dense breasts may obscure an underlying neoplasm. False positive reports average 6 to 10%. Patient will receive a letter notifying them of these results.
== END 2021-03-02 02:32 ==
PROVIDERS: PCP Emergency Medicine; Visit Provider Nurse Practitioner Family
DX: Z12.31 Encounter for screening mammogram for malignant neoplasm of breast (principal); R92.8 Other abnormal and inconclusive findings on diagnostic imaging of breast
CPT/HCPCS: 77063; 77067

== ENCOUNTER 2021-03-17 02:50 | Outpatient (CLI) | payer BC, SELFPAY ==
--- NOTE | 2021-03-17 | DI.MAMMO_ITS ---
Exam(s) MG MAMMO SCREEN CALL BACK UNI US BREAST RT LIMITED EXAM: MG MAMMO SCREEN CALL BACK UNI CLINICAL HISTORY: F/U MAMMO, RT BREAST LOBULATED ASYMMETRIC DENSITY SLIGHTLY INCREASED IN SIZ. TECHNIQUE: CC spot compression view with tomography followed by right breast ultrasound. COMPARISON: 02 March 2021 and exams back to 2011. FINDINGS: Mammography/Tomosynthesis: Masses/Architectural Distortion: Circumscribed 5 millimeter nodule medial right breast. Microcalcifictions: No suspicious pleomorphic-type are seen. Skin Thickening/Nipple Retraction: None. Right breast US: Echotexture: Normal appearance of the glandular tissue. Shadowing: No suspicious foci. Cyst: 4 x 2 x 3 millimeter cyst in the 3 o'clock position, of the medial right breast. Solid lesions: None seen. Ductal dilation: None. IMPRESSION: 1. No evidence of malignancy is noted. 2. Unless there is more urgent need, follow-up screening mammography is recommended, as per [employer] [place] [employer] [place] [employer] guidelines. 3. The findings were discussed with the patient on the date of the examination. BI-RADS Category 2 - Benign Findings Breast Density - Category C - Heterogeneously dense A mammogram that demonstrates density of C or D indicates the patient's breast tissue is dense. Dense breast tissue is very common and is not abnormal, but dense breast tissue can make it harder to find cancer on a mammogram. Also, dense breast tissue may increase their breast cancer risk. This informa tion about the result of the mammogram report was provided to the patient to raise their awareness. U se this report when you speak with the patient about their risks for breast cancer, which includes th eir family history. At that time, you may recommend for more screening tests (Ultrasound or MRI) as t hey might be useful based on their risk. A negative radiographic report should not delay biopsy if a dominant or clinically suspicious mass is present. Up to ten percent of cancers are not identified on mammography. A negative report may reinforce clinical impression. Adenosis and dense breasts may obscure an underlying neoplasm. False positive reports average 6 to 10%. Patient will receive a letter notifying them of these results.
== END 2021-03-17 03:10 ==
PROVIDERS: PCP Emergency Medicine; Visit Provider Nurse Practitioner Family
DX: R92.8 Other abnormal and inconclusive findings on diagnostic imaging of breast (principal); N60.01 Solitary cyst of right breast
CPT/HCPCS: 76642; 77063; 77067

== ENCOUNTER 2021-04-26 03:05 | Outpatient (REF) | payer BC, SELFPAY ==
[2021-04-27 13:07] LABS: COVID-19 RT-PCR UVMMC Result Negative (Negative)
== END 2021-04-26 03:06 | disposition home or self-care (01) ==
LOC: LBN 03:05
PROVIDERS: PCP Emergency Medicine; Visit Provider Family Medicine
DX: Z20.822 Contact with and (suspected) exposure to COVID-19 (principal); R11.10 Vomiting, unspecified
CPT/HCPCS: U0003

== ENCOUNTER 2021-05-23 02:38 | Outpatient (CLI) | payer BC, SELFPAY ==
[2021-05-23 10:08] LABS: Hemoglobin A1C 5.6 % (<5.7)
[2021-05-23 11:12] LABS: Iron 103 ug/dL (50-170); Total Iron Binding Capacity 314 ug/dL (250-450); Transferrin Sat 33 % (15-50)
[2021-05-23 11:28] LABS: Anion Gap 9.6 mmol/L (3-11); BUN 21 mg/dL (7-18); CO2 26.4 mmol/L (21.0-32.0); CREATININE 0.9 mg/dL (0.55-1.02); Calcium 9.4 mg/dL (8.5-10.1); Calculated LDL 94 mg/dL (<100); Chloride 103 mmol/L (98-107); Cholesterol 195 mg/dL (<200); Ferritin 416 ng/mL (8-252); Glucose 105 mg/dL (74-106); HDL Cholesterol 78 mg/dL (40-60); Potassium 4.3 mmol/L (3.5-5.1); Sodium 139 mmol/L (136-145); TSH 0.22 uIU/mL (0.36-3.74); Triglyceride 115 mg/dL (<150)
== END 2021-05-23 02:39 | disposition home or self-care (01) ==
LOC: LBO 02:39
PROVIDERS: PCP Emergency Medicine; Visit Provider Internal Medicine
DX: E03.9 Hypothyroidism, unspecified (principal); E11.9 Type 2 diabetes mellitus without complications; E78.5 Hyperlipidemia, unspecified; E83.119 Hemochromatosis, unspecified; I10 Essential (primary) hypertension; R73.9 Hyperglycemia, unspecified
CPT/HCPCS: 36415; 80048; 80061; 82728; 83036; 83540; 83550; 84443

== ENCOUNTER 2021-09-25 03:28 | Outpatient (CLI) | payer BC, SELFPAY ==
[2021-09-25 09:27] LABS: FREE T4 0.47 ng/dL (0.76-1.46); TSH 57.72 uIU/mL (0.36-3.74)
== END 2021-09-25 03:29 | disposition home or self-care (01) ==
LOC: LBO 03:28
PROVIDERS: Emergency Medicine; PCP Family Medicine; Visit Provider Family Medicine
DX: E03.9 Hypothyroidism, unspecified (principal); R79.89 Other specified abnormal findings of blood chemistry
CPT/HCPCS: 36415; 84439; 84443

== ENCOUNTER 2021-11-16 04:11 | Outpatient (CLI) | payer BC, SELFPAY ==
[2021-11-16 09:31] LABS: TSH (W/Ref FT4) 22.76 uIU/mL (0.36-3.74)
[2021-11-16 09:49] LABS: FREE T4 0.78 ng/dL (0.76-1.46)
[2021-11-16 10:01] LABS: Calculated LDL 122 mg/dL (<100); Cholesterol 230 mg/dL (<200); HDL Cholesterol 81 mg/dL (40-60); Triglyceride 136 mg/dL (<150)
== END 2021-11-16 04:12 | disposition home or self-care (01) ==
LOC: LBO 04:11
PROVIDERS: PCP Family Medicine; Visit Provider Family Medicine
DX: Z00.00 Encounter for general adult medical examination without abnormal findings (principal); E78.5 Hyperlipidemia, unspecified; E03.9 Hypothyroidism, unspecified
CPT/HCPCS: 36415; 80061; 84439; 84443

== ENCOUNTER 2022-01-17 04:17 | Outpatient (CLI) | payer BC, SELFPAY ==
[2022-01-17 12:08] LABS: TSH (W/Ref FT4) 8.57 uIU/mL (0.36-3.74)
[2022-01-17 12:26] LABS: FREE T4 0.72 ng/dL (0.76-1.46)
== END 2022-01-17 04:18 | disposition home or self-care (01) ==
LOC: LBO 04:17
PROVIDERS: PCP Family Medicine; Visit Provider Family Medicine
DX: E03.9 Hypothyroidism, unspecified (principal)
CPT/HCPCS: 36415; 84439; 84443

== ENCOUNTER → 2022-03-20 02:42 | Outpatient (CLI) | payer BC, SELFPAY ==
--- NOTE | 2022-03-20 11:45 | DI.MAMMO_ITS ---
Exam(s) MAMMO SCREENING EXAM: MAMMO SCREENING CLINICAL HISTORY: screening TECHNIQUE: Bilateral full field digital CC and MLO mammographic images were obtained with 3D tomosyn thesis and utilizing computer aided detection (CAD). COMPARISON: Available for comparison. FINDINGS: Masses/Architectural Distortion: None seen. Microcalcifications: No suspicious pleomorphic-type are seen. Skin Thickening/Nipple Retraction: None. IMPRESSION: 1. No significant interval change with no specific features of malignancy noted. 2. Unless there is more urgent need, screening mammography is recommended, as per [place] [employer]ety guidelines. BI-RADS Category 1 - Negative Breast Density - Category C - Heterogeneously dense Breast density category C or D implies that the patient has dense breast tissue. Dense breast tissue is very common and is not abnormal but dense breast tissue can make it harder to find cancer on a ma mmogram. Also, dense breast tissue may increase their breast cancer risk. This information about the result of the mammogram report was provided to the patient to raise their awareness. Use this report when you speak with the patient about their risks for breast cancer, which includes their family hist ory. At that time, you may recommend for more screening tests (Ultrasound or MRI) as they might be us eful based on their risk. A negative radiographic report should not delay biopsy if a dominant or clinically suspicious mass is present. Up to ten percent of cancers are not identified on mammography. A negative report may reinforce clinical impression. Adenosis and dense breasts may obscure an underlying neoplasm. False positive reports average 6 to 10%. Patient will receive a letter notifying them of these results.
== END ==
PROVIDERS: PCP Family Medicine; Visit Provider Nurse Practitioner Women's Health
DX: Z12.31 Encounter for screening mammogram for malignant neoplasm of breast (principal); R92.8 Other abnormal and inconclusive findings on diagnostic imaging of breast
CPT/HCPCS: 77063; 77067

== ENCOUNTER 2022-03-20 12:34 | Outpatient (CLI) | payer BC, SELFPAY ==
[2022-03-20 12:24] LABS: ALT 30 U/L (14-59); AST 19 U/L (15-37); Albumin 3.8 g/dL (3.4-5.0); Alkaline Phosphatase 56 U/L (46-116); Anion Gap 8.2 mmol/L (3-11); BUN 27 mg/dL (7-18); Bilirubin, Total 0.7 mg/dL (0.2-1.0); CO2 27.8 mmol/L (21.0-32.0); CREATININE 1.1 mg/dL (0.55-1.02); Calcium 8.9 mg/dL (8.5-10.1); Chloride 105 mmol/L (98-107); Estimated GFR 56.11 (mL/min/1.73m2); Glucose 97 mg/dL (74-106); Potassium 4.1 mmol/L (3.5-5.1); Sodium 141 mmol/L (136-145); TSH (W/Ref FT4) 5.08 uIU/mL (0.36-3.74); Total Protein 7.9 g/dL (6.4-8.2)
--- OUTSIDE RECORDS SUMMARY | 2022-03-20 12:37 | XMS_ITS | Encounter Summary ---
:1960 Author Organization [facility] Address [address] [place] [address] Care Team Providers Name Role Phone Unknown, Provider Primary Care Provider Encounter Details Date Type Department Care Team Description 12/29/2019 Lab Requisition [facility] Patricia Mcdonald E ncounter for other Pathology & SHOVEL LOGGER general examination Laboratory Medicine [address], [place] [address] [facility] [id number] [place], [place] [id number] Social History Tobacco Use Types Packs/Day Years Used Date Smoking Tobacco: Never Assessed Sex Assigned at Date Recorded Not on file documented as of this encounter Plan of Treatment Not on filedocumented as of this encounter Procedures Procedure Name Priority Date/Time Associated Comments Diagnosis PAP TEST Today 12/28/2019 10:45 Encounter for other Resu lts for this EDT general examination procedur e are in the results section. HUMAN PAPILLOMAVIRUS Today 12/28/2019 10:45 Encounter for ot her Results for this (HPV) DETECTION-HIGH EDT general examination procedure are in RISK TYPES the results section. documented in this encounter Results HUMAN PAPILLOMAVIRUS (HPV) DETECTION-HIGH RISK TYPES (12/28/2019 10:45 EDT) [facility] gist Method Time Signature Human Negative Negative 01/09/2020 [facility] MEDICAL Papillomavirus 20:41 EDT CENTER (HPV) LABORATORY Detection-High SERVICES Types Specimen Anatomical Collection Method Collection Time Receive d Time (Source) Location / / Volume Laterality Pap Test (Cervix 12/28/2019 10:45 020 and/or EDT 11:13 EDT Endocervix) Patricia Mcdonald [employer]ER MICROBIOLOGY - GENERAL ORDER ARON Performing Organization Address City/State/ZIP Code Phon e Number [facility] [address] [place] [address] SERVICES PAP TEST (12/28/2019 10:45 EDT) Component Value Ref Test Analysis Performed At [facility] Range Method Time Signature Specimens A. Cervix and/or 01/09/2020 [facility] MEDICAL Endocervix , 20:41 EDT CENTER ThinPrep Imaging LABORATORY System with SERVICES Manual Evaluation Specimen Satisfactory for 01/09/2020 [facility] MEDICAL Adequacy Evaluation - 20:41 EDT CENTER assessment of LABORATORY transformation SERVICES zone component not applicable ( e.g. atrophy, vaginal sample, hysterectomy) General Negative for 01/09/2020 [facility] Categorization intraepithelial 20:41 EDT CENTER lesion or LABORATORY malignancy SERVICES Attestation . 01/09/2020 [facility] Elect ronically 20:41 T CENTER signed by LABORATORY Brina, OBED Matias(ASCP) o n 01/09/2020 at 2041 HPV The result for the Human Pap illomavirus (HPV) Detection-High Risk Types is Negative. No E6 or E7 mRNA is detected from HPV types 16,18,31,33,35,39,45,51,52,56,58,59,66, and 68 by tooth cutter clutch mediated 01/09/2020 [facility] amplification.Testing was pe rformed on specimen [id number] and was resulted on 01/09/20202038 EDT by JOSE LUIS, LAB INSTRUMENT RESULTS IN 20:41 T CENTER LABORATORY SERVICES Scanned Images 01/09/2020 [facility] MEDICAL 20:41 T CENTER LABORATORY SERVICES Specimen Anatomical Collection Method Collection Time Receive d Time (Source) Location / / Volume Laterality Pap Test (Cervix 12/28/2019 10:45 0818/2 020 and/or EDT 11:12 EDT Endocervix) Patricia Mcdonald SHOVEL LOGGER PATHOLOGY ORDERABLES Performing Organization Address City/State/ZIP Code Phon e Number [facility] [address] [place] [address] SERVICES documented in this encounter Visit Diagnoses Diagnosis Encounter for other general examination documented in this encounter Care Teams Cardiac Monitor Relationship Specialty Start Date End Date Unknown, Provider, PCP - General 03/22/15 documented as of this encounter
--- OUTSIDE RECORDS SUMMARY | 2022-03-20 12:37 | XMS_ITS | Encounter Summary ---
:1960 Author Organization [facility] Address [address] [place] [address] Care Team Providers Name Role Phone Unavailable Primary Care Provider Unavailable Encounter Details Date Type Department Care Team Description 09/01/2004 Results Only [facility] - Suzanne Jordan eufemia, Patricia Saavedra, [employer]LECTRONIC NEWS GATHERING [employer] PERSON conversion [address] [place] [phone] (Wo rk) Social History Tobacco Use Types Packs/Day Years Used Date Smoking Tobacco: Never Assessed Sex Assigned at Date Recorded Not on file documented as of this encounter Plan of Treatment Not on filedocumented as of this encounter Procedures Procedure Name Priority Date/Time Associated Diagnosis Comme nts CYTOPATHOLOGY Routine 09/01/2004 0:00 EDT Results for this procedure are i n the results section . documented in this encounter Results CYTOPATHOLOGY (09/01/2004 0:00 EDT) Component Value Ref Test Analysis Performed At [facility] Range Method Time Signature Pathology CYTOPATHOLOGY REPORT [facility] Report: [facility] Reports generated via electronic interface contain original data; however they are lacking the format of the original report. Caution should be taken when reading/interpreting unformatte d reports. Name: ? TARSHA MCDERMOTT ? Accession #: ? [id number] : ? 1960 (Age: 44) ??F ?Collect Date: ? 09/01/2004 Location: ? [facility] ? Receive Date: ? 09/04/2004 Provider: ?PATRICIA MCDONALD [employer] GATHERING [employer] PERSON Copy to: ? Specimen/Source: ?ThinPrep Pap Test, Cervix/Endoce rvix Last Menstrual Period: ? 08/29/04 Other: ? HPVA - HPV testing requested if ASC-US on the current ThinPr ep Pap test. ? SPECIMEN ADEQUACY ? Satisfactory for Evaluation - transformation zone component present GENERAL CATEGORIZATION ? Other, see interpretation INTERPRETATION ? Endometrial cells present in a woman equal to o r greater than age 40. Negative for Intraepithelial Lesion or Malignancy. EDUCATIONAL NOTES/RECOMMENDATIONS ? Benign appearing endometrial cells on Pap tests are usually a normal finding in women with regular menstrual cycles, especially if the Pap test was collected during the first half of the menstrual cycle. There is data showing that e ndometrial cells on Pap tests may be associated with endometrial/uterine abnormal ities in post menopausal women or in perimenopausal women with abnormal bleeding. There is limited data on the significance of heidy ign endometrial cells in post menopausal women on HRT. ??Clinical correlation is recommend ed. Note: ??The Pap test is not an accurate test for the screening of endometrial lesions and should not be used as a follow up in patients wi th clinical suspicion of endometrial pathology. ? Document reviewed and electronically signed by: ? OBED Salinas(ASCP) ? Report Date: ??09/08/2004 10:55 End of Report Specimen (Source) Anatomical Location Collection Method / Collectio n Time Received Time / Laterality Volume 09/01/2004 09/04/2004 Patricia Mcdonald [employer] G[employer]ING [employer] PERSON PATHOLOGY ORDERABLES Performing Organization Address City/State/ZIP Code Phon e Number [facility] [address] [place] [address] SERVICES [facility] [address] [place] [phone] documented in this encounter Visit Diagnoses Not on filedocumented in this encounter
--- OUTSIDE RECORDS SUMMARY | 2022-03-20 12:37 | XMS_ITS | Encounter Summary ---
:1960 Author Organization [facility] Address [address] [place] [address] Care Team Providers Name Role Phone Unavailable Primary Care Provider Unavailable Encounter Details Date Type Department Care Team Description 07/19/1999 Results Only [facility] - Chris Ledesma MD conversion [address] [place] [address] Social History Tobacco Use Types Packs/Day Years Used Date Smoking Tobacco: Never Assessed Sex Assigned at Date Recorded Not on file documented as of this encounter Plan of Treatment Not on filedocumented as of this encounter Procedures Procedure Name Priority Date/Time Associated Diagnosis Comme [facility] CYTOPATHOLOGY Routine 07/19/1999 8:36 EST Results for this procedure are i n the results section . documented in this encounter Results CYTOPATHOLOGY (07/19/1999 8:36 EST) Component Value Ref Test Analysis Performed At [facility] Method Time Signature Pathology CYTOPATHOLOGY REPORT [facility] Report: [facility] Reports generated via electronic interface contain original data; however they are lacking the format of the original report. Caution should be taken when reading/interpreting unformatte d reports. Name: ? TARSHA MCDERMOTT ? Accession #: ? [id number] : ? 1960 (Age: 39) ??F ?Collect Date: ? 07/19/1999 Location: ?Receive Date: ? 0 07/19/1999 Provider: ?CHRIS SHAIKH MD Copy to: ?CHRIS SHAIKH MD ? Specimen/Source: ?Pap Smear (One Slide) Last Menstrual Period: ? GYNECOLOGIC ??CYTOPATHOLOGY ??RE PORT Name: TARSHA MCDERMOTT ? [facility] MR N: [id number] : 1960 ?? 39Y F ?Client ID: [id number] SS#: ? Clinician: CHRIS SHAIKH MD ?? Location: [facility] ??Copy to: ?? Specimen: ?Pap Smear (One Slide) ? Source: Cervix/Endocervix ?Collected: 07/18/99 ? Received: 07/19/1999 ?LMP: 07/03/99 ? Hormone Therapy: No ? : No ? Radiation Therapy: No ?? Post : No ?Chemotherapy: No ?IUD: No ? Prev Abnormal Pap: No ?? Clinical Hx: NL exam and history. ?(Blank arana indicate information not provided on req uisition) SPECIMEN ADEQUACY: ? Satisfactory For Evaluation ?? GENERAL CATEGORIZATION: ? WITHIN NORMAL LIMITS ? Reviewed And Electronically Signed By: ? Jr Jason Espinosa, CT(ASCP) ? Report Date: ?? 0 07/19/1999 [employer] Archived Tests - Final Diagnosis Text Field: Clinical History : ;NL exam and history. ? Document reviewed and electronically signed by: ? Conversion ? Report Date: ??07/19/1999 00:00 End of Report Specimen Anatomical Collection Method Collection Time Receive d Time (Source) Location / / Volume Laterality 07/19/1999 8:36 07/19/1999 8 :37 EST EST Chris Shaikh MD PATHOLOGY ORDERABLES Performing Organization Address City/State/ZIP Code Phon e Number [facility] [address] [place] [address] SERVICES [facility] [address] [place] [address] documented in this encounter Visit Diagnoses Not on filedocumented in this encounter
--- OUTSIDE RECORDS SUMMARY | 2022-03-20 12:37 | XMS_ITS | Encounter Summary ---
:[address] [facility] Address [address] [place] [address] Care Team Providers Name Role Phone Unavailable Primary Care Provider Unavailable Encounter Details Date Type Department Care Team Description 07/26/2000 Results Only [facility] - Suzanne Jordan eufemia, Patricia Saavedra, SOLE LAYER HAND conversion [address] [place] [phone] (Wo rk) Social History Tobacco Use Types Packs/Day Years Used Date Smoking Tobacco: Never Assessed Sex Assigned at Date Recorded Not on file documented as of this encounter Plan of Treatment Not on filedocumented as of this encounter Procedures Procedure Name Priority Date/Time Associated Diagnosis Comme nts CYTOPATHOLOGY Routine 07/26/2000 0:00 EST Results for this procedure are i n the results section . documented in this encounter Results CYTOPATHOLOGY (07/26/2000 0:00 EST) Component Value Ref Test Analysis Performed At [facility] Range Method Time Signature Pathology CYTOPATHOLOGY REPORT [facility] Report: [facility] Reports generated via electronic interface contain original data; however they are lacking the format of the original report. Caution should be taken when reading/interpreting unformatte d reports. Name: ? TARSHA MCDERMOTT ? Accession #: ? [id number] : ? 1960 (Age: 40) ??F ?Collect Date: ? 07/26/2000 Location: ? [facility] ? Receive Date: ? 07/29/2000 Provider: ?PATRICIA MCDONALD SOLE LAYER HAND Copy to: ? Specimen/Source: ?ThinPrep Pap Test, Cervix/Endoce rvix Last Menstrual Period: ? SPECIMEN ADEQUACY ? Satisfactory for evaluation. GENERAL CATEGORIZATION ? Within Normal Limits ? Document reviewed and electronically signed by: ? Leahta Bonilla, SCT(ASCP) ? Report Date: ??07/30/2000 14:16 End of Report Specimen (Source) Anatomical Location Collection Method / Collectio n Time Received Time / Laterality Volume 07/26/2000 07/29/2000 Patricia Mcdonald SOLE LAYER HAND PATHOLOGY ORDERABLES Performing Organization Address City/State/ZIP Code Phon e Number [facility] [address] [place] [address] SERVICES [facility] [address] [place] [address] documented in this encounter Visit Diagnoses Not on filedocumented in this encounter
--- OUTSIDE RECORDS SUMMARY | 2022-03-20 12:37 | XMS_ITS | Encounter Summary ---
:1960 Author Organization [facility] [place] [address] Care Team Providers Name Role Phone Arnaldo Marcus DO Primary Care Provider Reason for Visit Consultation (Routine) - Specialty Diagnoses / Procedures Referred By Contact Refer red To Contact Cardiology Diagnoses Hyperlipidemia, unspecified Arnaldo Marcus DO McGowan, Mary P, MD [address] [facility] [place] [address] [place] [address] [address] [place] [address] Phone: Fax: Referral ID Status Reason Start Date Expiration Date Visits V isits Requested Authorized [id number] Consult, Test 02/26/2019 02/26/2020 6 6 & Treat PCP Updated and/or Approved Encounter Details Date Type Department Care Team Description 09/11/2019 TH Visit Cardiology at [facility] Vikas Gotti, Nutritional (TeleHealth) [facility] [address] counseling [facility] [phone] [place] [address] Social History Tobacco Use Types Packs/Day Years Used Date Former Smoker Quit: 1977 Smokeless Tobacco: Never Used Financial Resource Strain Answer Date Recorded How hard is it for you to pay for the very basics like Not h irving at all 06/20/2021 food, housing, medical care, and heating? Food Insecurity Answer Date Recorded Within the past 12 months, you worried that your food would Never true 06/20/2021 run out before you got money to buy more. Within the past 12 months, the food you bought just didn't N ever true 06/20/2021 last and you didn't have money to get more. Transportation Needs Answer Date Recorded In the past 12 months, has lack of transportation kept you f rom No 06/20/2021 medical appointments or from getting medications? In the past 12 months, has lack of transportation kept you f rom No 06/20/2021 meetings, work, or getting things needed for daily living? Housing Stability Answer Date Recorded In the last 12 months, was there a time when you were not ab le No 06/20/2021 to pay the mortgage or rent on time? In the last 12 months, how many places have you lived? 1 06/20/2021 In the last 12 months, was there a time when you did not hav e a No 06/20/[address] sleep or slept in a senior care (including now)? Sex Assigned at Date Recorded Female 06/20/2021 10:20 AM EST documented as of this encounter Progress Notes Vikas Gotti, RD - 09/11/2019 11:20 AM EDT This is a TeleHealth Nutrition Visit. Patient is located at The current time is Patient verbalized consent to the telephone visit and is aware that Nutrition visits in Cardiovascular Medicine are provided at no charge to insurance nor to patient. Call ended time is: Date 09/11/2019 Patient Name Tarsha Pedraza 1960 Ref: Dr. Mora for elevated LDL cholesterol and modestly elevated triglycerides in the setting of statin intolerance. 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 They are walking 40 minutes x 3 daily. Patient has: _x__ Internet Access _x_ Computer or Tablet or SmartPhone (all) Activity/Exercise History & Habit: used to walk once/day; always have treadmill Past Diets Hx: don't do any; pasta Saturday, mashed potatoes frequently; fill plate once; oats or eggs with; did [employer]. Highest non- body weight: 137# Goal Weight: 124 to 127# Food Security: secure Potential for Malnutrition: low Reading: yes Dentition: throat swallowing and digesting aggravated when eating food quickly. Lives together with: NUTRITION ASSESSMENT: Weight History: Estimated body mass index is 27.43 kg/m?? as calculated from the following: Height as of 05/22/19: 154 cm (5' 0.63). Weight as of 05/22/19: 65 kg (143 lb 6.4 oz). Wt Readings from Last 3 Encounters: 05/22/19 65 kg (143 lb 6.4 oz) 09/11/18 63 kg (139 lb) 05/29/18 59.9 kg (132 lb) BMI is 25.0 to 29.9 Overweight (not obese) Estimated [place] body weight in (kg) based on height and gender = 47.7 kg (105#) +/- 10% Estimated kcal need for weight reduction: 47.7 x 25 to 30 = 1200 to 1400 kcals/day Estimated protein need: 1.0 g/kg IBW = 48 g protein/day Active Ambulatory Problems Diagnosis Date Noted ??? Elevated ferritin 03/27/2018 ??? Statin intolerance ??? Hyperlipidemia type III ??? HTN (hypertension) Resolved Ambulatory Problems Diagnosis Date Noted ??? No Resolved Ambulatory Problems No Additional Past Medical History No visits with results within 1 Month(s) from this visit. Latest known visit with results is: No results found for any previous visit. Labs: laboratories drawn May 15, 2019 still reflected some statin on board - stopped the rosuvastatin on May 07 Total cholesterol 285 mg/dL Triglycerides 224 mg/dL HDL cholesterol 46 mg/dL LDL cholesterol 195 mg/dL Lp(a) 7 (WNL) No results found for: 25OHVITD No results for input(s): HA1C in the last 7068 hours. Meds include: ??? ubiquinone (COENZYME Q10) 100 mg Capsule ??? ezetimibe (ZETIA) 10 mg Tablet ??? rosuvastatin (CRESTOR) 5 mg Tablet ??? losartan-hydrochlorothiazide (HYZAAR) 100-25 mg Tablet ??? amLODIPine (NORVASC) 5 mg Tablet ??? levothyroxine (SYNTHROID) 88 mcg tablet MEDICAL NUTRITION THERAPY ASSESSMENT & FINDINGS: 59 y.o. female referred to Electro[facility]ater for MNT to support treatment for Type III Hyperlipidemia. Past medical history as noted above. See assessment of body weight and energy and protein needs above. Labwork suggests: no recent labs Potential nutrient depletions resulting from medications include the following: HCTZ can deplete the following nutrients B6 deficiency can result in depression, sleep disturbance including insomnia, nervous system disorders, anemia, fatigue, weakness, and CVD risk. Good food sources include sunflower seeds and sunflower seed butter, dried beans, nuts, wild game, tuna, oranges and orange juice. Supplementation with a B-complex which includes nzoxiqnsv-2-claofazsa (activated form of B6) may be useful if patient is exhibiting symptoms of deficiency. Deficiency of folates can result in depression, defects, cervical dysplasia, anemia, and CVD. All women of childbearing age taking this medication should be prescribed a folate supplement in addition to twice daily eating dried beans, asparagus, orange juice, peanuts, turnip greens, spinach, andbeets. Calcium depletion can result in osteoporosis, heart/blood pressure irregularities, and tooth decay. Adult patients should be encouraged to consume two cups or more cooked spinach/south korean chard/collards plus 8 oz/day fortified orange juice or tofu/legumes or sardines daily to consume adequate dietary calc ium. [place] on dairy products for calcium is not encouraged for most adults due to insufficient lactase to digest the milk sugar, lactose, and due to the hyper-allergenicity of casein and whey proteins which are found in dairy products of all animals. [place] on calcium supplements should be discouraged, as additional food components are necessary to prevent calcification of soft tissues. Calcium channel blockers can deplete the following nutrients, resulting in these possible long-term side effects: Potassium is one of the nutrients identified by NHANES as being consumed in insufficient daily quantities by most Americans. Potassium can be further depleted with use of this medication. Symptoms of Kdepletion include irregular heartbeat, muscle weakness, fatigue, and edema. Increasing dietary intake of high potassium foods daily should be encouraged. Highest potassium foods include molasses, beans& seeds (such as hummus), tomatoes and tomato products, turkey, spinach, and tropical fruits such as citrus, plantain. (Bananas are often recommended for increasing potassium intake. Ten medium-size bananas daily would be needed to meet a patient's daily potassium need, and so is impractical.) Calcium as mentioned above under HCTZ. Vitamin D Lower 25(OH)D levels have been associated with reduced functional capacity in patients with diastolic disease or HFpEF and have been significantly predictive for an increased rate of cardiovascular hospitalizations. 24-hour food recall from patient reflects patient is currently under-consuming kcals, making her diet insufficient in many nutrients. Current intakes are approximately 900 kcals/day Macronutrient breakdown: 31% protein; 11% saturated fats with 121 mg cholesterol; 32% carbohydrates of high-fiber quality. Micronutrients noted to be possibly insufficient in patient's usual diet include vitamins B1, B5, folate, vitamins D & E; and minerals Ca, Cu, Mg, Mn, and K. In 3 meals plus one snack daily. Of note: sufficient fiber; < 2 g sodium. Research with the DASH diet has shown that an increase in dietary K, Mg, and Ca can help reduce blood pressure. Patient is not consuming sufficient quantities of any of these at this time. NUTRITION INTERVENTION: x Provided cronometer nutrient analysis of the 24--hour food recall Educational Resources Provided Included x Reviewed the macronutrient distribution compared with goals: P30/F30/C40 Mediterranean Diet-cardiometabolic version x Reviewed the composition of dietary fats Sodium Counter x Reviewed the fiber intake FDA Guide to Vitamins/Minerals x Reviewed the micronutrients intake Guide to Food Journaling Apps Foodgroup Checklist Instructed on Mediterranean Diet Portion Distortion Instructed on Low Sodium Diet NLA Elevated Lipoprotein(a) Instructed on Fats NLA How Much Sugar? Instructed on Potassium NLA High Blood Triglycerides x NLA ApoB/LDL Particle Number is high? Potassium Counter Patient Goals: To be successful with this goal, what mini-goals are needed? What is needed? Possible Barriers Ways to overcome barriers Goal Date: 1. Begin using Tempolib or other tom to monitor 2.Limit saturated fat intake to 5% of calories: 7 g/day 3. Dietitian Goals for Patient: LONG-RANGE NUTRITION EDUCATION GOALS: A) Increase Mg, K, Ca intake. Increase nutrient-dense and high-fiber, low saturated (<7% of totalcaloric intake), no trans fats foods: a. Goal: Increase cabbage-family vegetables daily for P450 support i. For example: Triny slaw with olive oil & vinegar dressing, ground kale in soups, meatloaf, andcasseroles b. Goal: Increase nuts to 1 ounce daily for omega-3 fats i. For example: add walnuts to oatmeal, salads, fruits, steamed vegetables c. Goal: Increase leafy vegetables daily for folate, B6, fiber, vitamin K (kale, spinach, beet greens, cabbage family) i. For example: add spinach to breakfast; add triny slaw to lunch; snack on carrots and raw cabbage with hummus; add beet greens with beets and a salad to supper entree. ii. Consider adding a B-complex vitamin. d. Goal: Increase fiber of all kinds to 15 g fiber for every 1000 kcals eaten i. For example: vegetables, nuts, beans, lentils, seeds e. Goal: Increase ocean fishes intake to at least four times/week for iodine and omega 3 Fats i. For example: Tuna salad, salmon cakes, grilled or baked fish f. Goal: Increase legumes to at least 1/4 cup daily for Mg, Fe, fiber, K, P, Ca, and plant sterols and stanols to reduce LDL. i. For example: chili, split pea soup, lentil soup, hummus, home-made refried beans B) Reduce oec-hyaryfoj-tyeyn foods including alcohol, desserts, deep-fried foods, candy. NUTRITION MONITORING PLAN/EVALUATION/SURVEILLANCE PLAN: RTC: 6 months. E-mail link to [facility] Cardiac and Pulmonary Rehab channel playlists. E-mail frequent Recipes [employer] Resources newsletter. Recommend: 1) Yearly vitamin D level monitoring and supplementation with cod liver oil as indicated. 2) Due to possible calcium depletion as a medication side-effect, a dexa scan may be helpful in identifying potential bone loss. documented in this encounter Plan of Treatment Upcoming Encounters Date Type Specialty Care Team Description 03/28/2022 Appointment 06/20/2022 Appointment Hematology and Oncology 06/20/2022 Office Visit Hematology and Oncology Josiah Tse MD [facility] [place] [place] [address] (Wo rk) documented as of this encounter Visit Diagnoses Diagnosis Nutritional counseling documented in this encounter Care Teams Customer Relationship Specialist Relationship Specialty Start Date End Date Arnaldo Marcus DO PCP - General Family Medicine 09/11/[address] [place] [address] documented as of this encounter
--- OUTSIDE RECORDS SUMMARY | 2022-03-20 12:37 | XMS_ITS | Clinical Summary ---
:1960 Author Organization [facility] [place] [address] Care Team Providers Name Role Phone Arnaldo Marcus DO Primary Care Provider Allergies Active Allergy Reactions Severity Noted Date Comments Amoxicillin Trihydrate Lisinopril Other (See Comments) 03/06/2018 Cough Medications Medication Sig Dispensed Refills Start Date End Date Status levothyroxine (SYNTHROID) 88MCG = 1 0 12/07/2005 Active 88 mcg tablet Tablet(s), PO, Once daily amLODIPine (NORVASC) 5 mg Take 5 mg by 0 Active Tablet mouth nightly. ubiquinone (COENZYME Q10) Take 100 mg by 0 Active 100 mg Capsule mouth daily. rosuvastatin (Crestor) 5 TAKE 1 TABLET 60 tablet 3 05/25/2021 Active mg TabletIndications: BY MOUTH ON Familial SATURDAY hypercholesterolemia Saturday AND SATURDAY Additional Information Patient not taking. Reported on 06/21/2021 ezetimibe (Zetia) 10 mg Take 1 tablet by 90 tablet 3 Active TabletIndications: Familial mouth daily. hypercholesterolemia losartan (COZAAR) 100 mg Tablet Take 100 mg by 0 Active mouth daily. Active Problems Problem Noted Date Elevated ferritin 03/27/2018 Statin intolerance Hyperlipidemia type III Overview: type IIb HTN (hypertension) Encounters Date Type Specialty Care Team Description 03/15/2022 Orders Only Reagan Olguin MD 01/26/2022 Hospital Encounter Elevated ferritin from Last 3 Months Immunizations Name Administration Dates Next Due Hepatitis B Vaccine, Ped/adol 02/08/1998, 01/06/1998 Influenza Vaccine PF, Quadrivalent 03/14/2018 Influenza Vaccine PF, Quadrivalent, Patty Thompson 03/04/2019 Canine Kidney Influenza Vaccine, Whole 03/20/2005 Pneumococcal Polyvalent 23 02/11/1997 Td Vaccine, Absorbed, PF, Adult 02/19/2012, 10/19/2002 Td, adult 10/19/2002 Tdap Vaccine 02/19/2012 Family History Medical History Relation Comments Coronary Artery Disease Brother 1 had [place] and stent Hyperlipidemia Brother 1 Alcohol Use Disorder Father Heart Disease Maternal Uncle 1 [place] Alzheimer Disease Maternal Uncle 2 Coronary Artery Disease Mother Hypertension Sister Relation Status Comments Brother 1 Alive Brother 2 Alive Father Maternal Uncle 1 Maternal Uncle 2 Mother Sister Alive Social History Tobacco Use Types Packs/Day Years [...] place to sleep or slept in a snf (including now)? Sex Assigned at Date Recorded Female 06/20/2021 10:20 AM EST Last Filed Vital Signs Vital Sign Reading Time Taken Comments Blood Pressure 143/78 01/26/2022 11:34 AM EDT Pulse 74 01/26/2022 11:34 AM EDT Temperature 36.2 ??C (97.1 ??F) 01/26/2022 11:34 AM EDT Respiratory Rate 12 06/21/2021 12:47 PM EST Oxygen Saturation 99% 06/21/2021 12:47 PM EST Inhaled Oxygen Concentration - - Weight 59 kg (130 lb) 01/26/2022 11:34 AM EDT Height 152.4 cm (5') 01/26/2022 11:34 AM EDT Body Mass Index 25.39 01/26/2022 11:34 AM EDT Plan of Treatment Upcoming Encounters Date Type Specialty Care Team Description 03/28/2022 Appointment 06/20/2022 Appointment Hematology and Oncology 06/20/2022 Office Visit Hematology and Oncology Josiah Tse [facility]US DEPT. [place], [place] [address] (Wo rk) Health Maintenance Due Date Last Done Comments Covid-19 Vaccine (#1) 1960 HIV screen 1976 Hepatitis C Screening 1976 HPV test 1988 PAP Smear 1988 Breast Cancer Share Decision 1998 Needed Colonoscopy 2003 Breast Cancer screening 2008 Zoster vaccine (1 of 2) 2008 Advance Directive 2013 Influenza (Flu) vaccine (1 of 1 - 01/11/2022 03/04/2019, , Influenza standard series) 03/20/2005 Tetanus vaccine 02/18/2022 02/19/2012, 02/19/2012, 10/19/2002, Additional history exists Diabetes Screening (HgbA1C or 06/21/2024 06/21/2021, 2019 Glucose) Tdap adult Completed 02/19/2012 Procedures Procedure Name Priority Date/Time Associated Diagnosis Comme nts HC FERRITIN, SERUM Routine 01/26/2022 12:30 PM Re sults for this EDT procedure are i n the results section. from Last 3 Months Results Ferritin (01/26/2022 12:30 PM EDT) athologist Signature Ferritin 65 30 - 400 PARRISH ALANIZ ng/mL [facility] Comment: Pediatric reference ranges not verified at [facility], interpret with caution. Reference ranges for females greater sim n 50 years of age approach values for men, i.e., 30-400 ng/mL. Specimen Anatomical Collection Method Collection Time Receive d Time (Source) Location / / Volume Laterality Blood 01/26/2022 12:30 01/26/2022 PM EDT 12:30 PM EDT Resulting Agency Comment Spec In Lab Tam Piña MD CHEMISTRY ORDERABLES Performing Organization Address City/State/[place] [address] from Last 3 Months Insurance Payer Benefit Plan / Subscriber ID Effective Dates Phone Addre ss Type Group [employer] [place] [id number] 2021-Present [address] [facility] [place], [place] [address] Care Teams Paperhanger Apprentice Relationship Specialty Start Date End Date Arnaldo Marcus DO PCP - General Family Medicine 09/11/[address] [place], [place] [id number]
--- OUTSIDE RECORDS SUMMARY | 2022-03-20 12:37 | XMS_ITS | Encounter Summary ---
:1960 Author Organization [facility] Address [address] [place] [address] Care Team Providers Name Role Phone Unavailable Primary Care Provider Unavailable Encounter Details Date Type Department Care Team Description 09/12/2007 Results Only [facility] - Suzanne Crow od, BRITTNEY Lenz conversion [address] [place] [phone] (Wo rk) Social History Tobacco Use Types Packs/Day Years Used Date Smoking Tobacco: Never Assessed Sex Assigned at Date Recorded Not on file documented as of this encounter Plan of Treatment Not on filedocumented as of this encounter Procedures Procedure Name Priority Date/Time Associated Comments Diagnosis HPV DETECTION, HIGH Routine 09/12/2007 9:00 Resul ts for this RISK TYPES EDT procedure are i n the results section. CYTOPATHOLOGY Routine 09/12/2007 0:00 Results for this EDT procedure are i n the results section. documented in this encounter Results HUMAN PAPILLOMA VIRUS DNA TEST (09/12/2007 9:00 EDT) [facility] Method Time Signature Specimen Cervix, [place]ESS[place] Description ThinPrep [facility] vial Result Negative for [place] HPV types [facility] 16, 18, 31, 33, 35, 39, 45, 51, 52, 56, 58, 59, and 68. Report Status Final PRESS[place] [id number] [facility] Specimen Anatomical Collection Method Collection Time Receive d Time (Source) Location / / Volume Laterality 09/12/2007 9:00 09/17/2007 EDT 10:19 EDT Patricia LUGO MICROBIOLOGY - GENERAL ORDER ARON Performing Organization Address City/State/ZIP Code Phon e Number [facility] [address] [place] [address] SERVICES [facility] [address] [place] [address] CYTOPATHOLOGY (09/12/2007 0:00 EDT) Component Value Ref Test Analysis Performed At [facility] Range Method Time Signature Pathology CYTOPATHOLOGY REPORT [facility] Report: [facility] Reports generated via electronic interface contain original data; however they are lacking the format of the original report. Caution should be taken when reading/interpreting unformatte d reports. Name: ? TARSHA MCDERMOTT Yessenia ? Accession #: ? [id number] : ? 1960 (Age: 47) ??F ?Collect Date: ? 09/12/2007 Location: ? [facility] ? Receive Date: ? 09/12/2007 Provider: ?PATRICIA MCDONALD [facility] Copy to: ? Specimen/Source: ? ThinPrep Pap Test, Cervix/Endocervix, processed on Colppy ThinPrep Imaging System, with manual evaluation Last Menstrual Period: ? 09/03/07 Other: ? Additional clinical information: 09/10/06 endometrial ce lls present in a woman equal to or greater than age 40 HPVDX - HPV testing requested regardless of diag nosis on current ThinPrep Pap test. ? SPECIMEN ADEQUACY ? Satisfactory for Evaluation - transformation zone component present GENERAL CATEGORIZATION ? Negative for Intraepithelial Lesion or Malignancy ? Document reviewed and electronically signed by: ? OBED Scott(ASCP) ? Report Date: ??09/16/2007 12:51 End of Report Specimen (Source) Anatomical Location Collection Method / Collectio n Time Received Time / Laterality Volume 09/12/2007 09/12/2007 Patricia Mcdonald MIXER RUNNER PATHOLOGY ORDERABLES Performing Organization Address City/State/ZIP Code Phon e Number [facility] [address] [place] [address] SERVICES [facility] [address] [place] [address] documented in this encounter Visit Diagnoses Not on filedocumented in this encounter
--- OUTSIDE RECORDS SUMMARY | 2022-03-20 12:37 | XMS_ITS | Encounter Summary ---
:1960 Author Organization [facility] Address [address] [place] [address] Care Team Providers Name Role Phone Unavailable Primary Care Provider Unavailable Encounter Details Date Type Department Care Team Description 10/30/2013 Results Only [facility] Vasquez Mcdonald, SUPERVISORY AIR INTERCEPT CONTROLLER Laboratory Services - [address] [place], [place] [address] [place] [id number] [place] [address] [phone] Social History Tobacco Use Types Packs/Day Years Used Date Smoking Tobacco: Never Assessed Sex Assigned at Date Recorded Not on file documented as of this encounter Plan of Treatment Not on filedocumented as of this encounter Procedures Procedure Name Priority Date/Time Associated Diagnosis Comme nts PAP TEST- RESULT Routine 10/30/2013 0:00 EDT Resu lts for this ONLY procedure are i n the results section. documented in this encounter Results PAP TEST- RESULT ONLY (10/30/2013 0:00 EDT) Component Value Ref Test Analysis Performed At [facility] Method Time Signature Pathology CYTOPATHOLOGY REPORT [facility] Report: [facility] Reports generated via electronic interface contain original data; however they are lacking the format of the original report. Caution should be taken when reading/interpreting unformatte d reports. Name: ? TARSHA MCDERMOTT ? Accession #: ? [id number] ? : ? 1960 (Age: 53) ??F ?Collect Da te: ? 10/30/2013 ? Location: ? [facility] ? Receive Date: ? 11/02/2013 ? Provider: PATRICIA MCDONALD SUPERVISORY AIR INTERCEPT CONTROLLER Copy to: MICHEAL ROSAS DO ? Final Report SPECIMEN ADEQUACY ? Satisfactory for Evaluation - transformation zone component present GENERAL CATEGORIZATION ? Negative for Intraepithelial Lesion or Malignancy ?? Last Menstrual Period: 01/11/2011 Specimen/Source: ??Pap Test, Cervix/Endocervix, ThinPr ep Imaging System with manual evaluation Document reviewed and electronically signed by: ? Bk Fernandez, CT(ASCP) ? Report ??Date: 11/11/2013 11:18 HPV with Pap Test ? Date Ordered: ? 11/11/2013 ? Status: ?? Gretchen d Out ?Date Complete: ? 11/13/2013 ? By: ??System Interface ? Date Reported: ? 11/13/2013 ? Interpretation RESULT: Negative for HPV. No E6 or E7 mRNA is detected from HPV types 16,18,31,33,35, 39,45,51,52,56,58,59,66, and 68 by circulation representative mediated amplification. Comments Document reviewed and electronically signed by: ? System Interface ? Report date: 11/13/2013 By the signature above, the attending physician certifies th at he/she has personally conducted a gross and/or microscopic examin ation of the described specimens and rendered or confirmed the above diagnosis. End of Report Specimen (Source) Anatomical Location Collection Method / Collectio n Time Received Time / Laterality Volume 10/30/2013 11/02/2013 Patricia Mcdonald SUPERVISORY AIR INTERCEPT CONTROLLER PATHOLOGY ORDERABLES Performing Organization Address City/State/ZIP Code Phon e Number [facility] [address] [place] [address] SERVICES [facility] [address] [place] [phone] documented in this encounter Visit Diagnoses Not on filedocumented in this encounter
--- OUTSIDE RECORDS SUMMARY | 2022-03-20 12:37 | XMS_ITS | Encounter Summary ---
:1960 Author Organization [facility] [place] [address] Care Team Providers Name Role Phone Arnaldo Marcus DO Primary Care Provider Encounter Details Date Type Department Care Team Description 05/19/2021 Telephone Cardiology at [facility] Simona Oretz [facility] [place] [phone] Social History Tobacco Use Types Packs/Day Years [...] place to sleep or slept in a fci (including now)? Sex Assigned at Date Recorded Female 06/20/2021 10:20 AM EST documented as of this encounter Miscellaneous Notes Telephone Encounter - Simona Ortez LNA - 05/22/2021 2:52 PM EST Unable to connect with patient for upcoming Visit with Dr. Mora on 05/25/21. *Recent lab work is in Media of 05/17/21. documented in this encounter Plan of Treatment Upcoming Encounters Date Type Specialty Care Team Description 03/28/2022 Appointment 06/20/2022 Appointment Hematology and Oncology 06/20/2022 Office Visit Hematology and Oncology Josiah Tse MD [facility] HEMATOLOGY/ON[facility]US DEPT. [place], [place] [address] (Wo rk) documented as of this encounter Visit Diagnoses Not on filedocumented in this encounter Care Teams Knifer Up Relationship Specialty Start Date End Date Arnaldo Marcus DO PCP - General Family Medicine 09/11/18 [address] [place] [address] documented as of this encounter
--- OUTSIDE RECORDS SUMMARY | 2022-03-20 12:37 | XMS_ITS | Encounter Summary ---
:1960 Author Organization [facility] [place] [address] Care Team Providers Name Role Phone Arnaldo Marcus DO Primary Care Provider Encounter Details Date Type Department Care Team Description 05/20/2020 TH Visit Cardiology at [facility] Parrish Terry, Familial hypercholesterolemi a; (TeleHealth) [facility] Essential hypertension; [facility] Prediabetes [facility] [phone] CARDIOLOGY DEPT [phone] [place], [place] [address] Social History Tobacco Use Types Packs/Day Years [...] place to sleep or slept in a intermediate (including now)? Sex Assigned at Date Recorded Female 06/20/2021 10:20 AM EST documented as of this encounter Progress Notes Parrish Terry MD - 05/20/2020 10:[address] [facility]-Follow Up Visit ID/PMH Tarsha is a 60 y.o. followed by Arnaldo Marcus DO with the following problems: Patient Active Problem List Diagnosis Code ??? Elevated ferritin R79.89 ??? Statin intolerance Z78.9 ??? Hyperlipidemia type III E78.2 ??? HTN (hypertension) I10 Social history Tarsha is a 60-year-old woman who lives at home with her ??Arnaldo. 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 ??They have 2??children ages 33 and 30. ??Her sonlives in [facility] so the events of this past week in [place] in e [place] were very upsetting to her. She is a former??smoker??- she quit many many years ago having smoked for 10 years. ??She drinks a glass of wine daily. ??She enjoys cooking, walking, gardening.?? Present Illness Tarsha Pedraza is seen to follow up on her dyslipidemia. Since her last appointment with me she reports no new medical issues. She has continued to take ezetimibe 10 mg daily and rosuvastatin 5 mg M,W, & F. Exercise 90 minutes per day Diet: B: left overs - no eggs coffee fat free half and half L: left overs / pasta with veggies water D: vegetables potatos chicken, fish- 2 times a week, pork, red meat once a week 2 glasses wine ROS General weight stable / had a stomach bug a week or so ago Cardiac no issues MSK no issues Medications: Taking vitamin D3 Current Outpatient Medications Medication Sig Dispense Refill ??? ezetimibe (Zetia) 10 mg Tablet Take 1 tablet by mouth daily. 90 tablet 0 ??? rosuvastatin (Crestor) 5 mg Tablet TAKE 1 TABLET ON SATURDAY, SATURDAY AND SATURDAY 36 tablet 0 ??? ubiquinone (COENZYME Q10) 100 mg Capsule Take 100 mg by mouth daily. ??? losartan-hydrochlorothiazide (HYZAAR) 100-25 mg Tablet Take 1 tablet by mouth daily. ??? amLODIPine (NORVASC) 5 mg Tablet Take 5 mg by mouth nightly. ??? levothyroxine (SYNTHROID) 88 mcg tablet 88MCG = 1 Tablet(s), PO, Once daily No current facility-administered medications for this visit. Allergies Amoxicillin trihydrate and Lisinopril Physical Exam not performed telehealth Labs Total Cholesterol 185 mg/dL Triglycerides 150 mg/dL LDL-C 105 mg/dL HDL-C 50 mg/dL Blood sugar 101 mg/dL HbA1c 5.7% Assessment Tarsha's lipids have continued to improve. Her LDL has fallen from a high of 195 mg/dL to it's current level of 105 mg/dL. Overall since her first visit both her triglycerides and HDL have also improved. But her HDL has fallen since her last visit likely reflecting a little less exercise (at her last visit she was exercising 90 minutes a day). Her triglycerides while better than baseline, are not quite as good as last visit. We discussed the impact of wine on triglycerides and blood pressure We also discussed the impact of simple carbohydrates (potato, pasta) on triglycerides and blood sugar. Her Triglycerides are at the upper limit of normal and her her blood sugar and HbA1c are in the prediabetes range. I did point out that her fasting BS has actually improved slightly - last visit it was 108 mg/dL. By cutting back on simple carbohydrates, Tarsha's blood sugar, HbA1c and triglycerides are all likely to improve. At Tarsha's request, I will plan to see her in follow-up in one year. Plan ?? Medication changes: none ?? Investigations: labs and a visit in 12 months ?? Counseling: I explained my impression and answered all Tarsha's questions. Including questions regarding what time of day is best to take ezetimibe Follow up 12 months PARRISH TERRY MD 05/16/2020 CC: Arnaldo Marcus DO documented in this encounter Plan of Treatment Upcoming Encounters Date Type Specialty Care Team Description 03/28/2022 Appointment 06/20/2022 Appointment Hematology and Oncology 06/20/2022 Office Visit Hematology and Oncology Josiah Tse MD [facility] [place] [address] (Wo rk) documented as of this encounter Visit Diagnoses Diagnosis Familial hypercholesterolemia Pure hypercholesterolemia Essential hypertension Unspecified essential hypertension Prediabetes Other abnormal glucose documented in this encounter Care Teams Websphere Commerce Architect Relationship Specialty Start Date End Date Arnaldo Marcus DO PCP - General Family Medicine 09/11/[address] [place] [address] documented as of this encounter
--- OUTSIDE RECORDS SUMMARY | 2022-03-20 12:37 | XMS_ITS | Encounter Summary ---
:1960 Author Organization [facility] Address [address] [place] [address] Care Team Providers Name Role Phone Unavailable Primary Care Provider Unavailable Encounter Details Date Type Department Care Team Description 10/05/2010 Results Only [facility] Vasquez Mcdonald, CONSTRUCTION MANAGEMENT INSTRUCTOR Laboratory Services - [address] [place], [place] [address] [facility] [phone] [place] [address] [phone] Social History Tobacco Use Types Packs/Day Years Used Date Smoking Tobacco: Never Assessed Sex Assigned at Date Recorded Not on file documented as of this encounter Plan of Treatment Not on filedocumented as of this encounter Procedures Procedure Name Priority Date/Time Associated Diagnosis Comme nts PAP TEST- RESULT Routine 10/05/2010 0:00 EDT Resu lts for this ONLY procedure are i n the results section. documented in this encounter Results PAP TEST- RESULT ONLY (10/05/2010 0:00 EDT) Component Value Ref Test Analysis Performed At [facility] Method Time Signature Pathology CYTOPATHOLOGY REPORT ? [facility] Report: ? [facility] Reports generated via electr onic interface contain original data; ? however they are lacking the format of the original report. ? Caution should be taken when reading/interpreting unformatted reports. ? Name: ? TARSHA MCDERMOTT ? Accession #: ? [id number] ? : ? 1960 (Age: 50) ??F ?Collect Date: ? 10/05/2010 ? Location: ? [facility] ? R eceive Date: ? 10/06/2010 ? Provider: PATRICIA TAMARA CONSTRUCTION MANAGEMENT INSTRUCTOR ? Copy to: ? Final Report ? SPECIMEN ADEQUACY ? Satisfactory for Eval uation ? - transformation zone compon ent present ? GENERAL CATEGORIZATION ? Negative for Intraepi thelial Lesion or Malignancy ? Last Menstural Period: 12/03 /10 ? Hormonal/Contraceptive statu s: Tubal ligation: BTL ? Specimen/Source: ??Pap Test, Cervix/Endocervix, ThinPrep Imaging System with ? manual evaluation ? Document reviewed and electr onically signed by: ? Jahaira Fernández CT(A SCP) ? Report ??Date: 10/12/ 2010 08:48 ? HPV with Pap Test ? Date Ordered: ? 0 10/12/2010 ? Status: ?? Signed Out ?Date Complete: ? 10/17/2010 ? By: ??System Interface ? Date Reported: ? 10/17/2010 ? Interpretation ? RESULT: Negative for HPV typ es 16, 18, 31, 33, 35, 39, 45, 51, 52, ? 56, 58, 59, and 68. ? Comments ? Document reviewed and electr onically signed by: ? System Interface ? Report date: 10/18/19 ? By the signature above, the attending physician certifies that he/she has ? personally conducted a gross and/or microscopic examination of the described ? specimens and rendered or co nfirmed the above diagnosis. ? End of Report ? Specimen (Source) Anatomical Location Collection Method / Collectio n Time Received Time / Laterality Volume 10/05/2010 10/06/2010 Patricia E Tamara CONSTRUCTION MANAGEMENT INSTRUCTOR PATHOLOGY ORDERABLES Performing Organization Address City/State/ZIP Code Phon e Number [facility] [address] [place] [address] SERVICES [facility] [address] [place] [address] documented in this encounter Visit Diagnoses Not on filedocumented in this encounter
--- OUTSIDE RECORDS SUMMARY | 2022-03-20 12:37 | XMS_ITS | Encounter Summary ---
:1960 Author Organization [facility] [place] [address] Care Team Providers Name Role Phone Arnaldo Marcus DO Primary Care Provider Reason for Visit Reason Comments Procedure Consultation (Routine) - Authorized Specialty Diagnoses / Procedures Referred By Contact Refer red To Contact Diagnoses Elevated ferritin Carrier of hemochromatosis HFE gene mutation Bryan Tse [facility] Bloo d Donor [facility] HEMATOLOGY/[place] [address] [place] [address] Referral ID Status Reason Start Date Expiration Visits Visits Date Requested Authorized [id number] Authorized Consult, 06/25/2021 06/25/2022 26 26 Test & Treat Encounter Details Date Type Department Care Team Description 08/21/2021 Hospital Encounter [place] [address] Social History Tobacco Use Types Packs/Day [...] place to sleep or slept in a retirement (including now)? Sex Assigned at Date Recorded Female 06/20/2021 10:20 AM EST documented as of this encounter Last Filed Vital Signs Vital Sign Reading Time Taken Comments Blood Pressure 145/75 08/21/2021 10:04 AM EDT Pulse 68 08/21/2021 10:04 AM EDT Temperature 36.3 ??C (97.3 ??F) 08/21/2021 10:04 AM EDT Respiratory Rate - - Oxygen Saturation - - Inhaled Oxygen Concentration - - Weight - - Height - - Body Mass Index - - documented in this encounter Medications at Time of Discharge Medication Sig Dispensed Refills Start Date End Date losartan (COZAAR) 100 mg Take 100 mg by 0 Tablet mouth daily. rosuvastatin (Crestor) 5 mg TAKE 1 TABLET BY 60 tablet 3 TabletIndications: Familial MOUTH ON SATURDAY hypercholesterolemia Saturday AND SATURDAY ezetimibe (Zetia) 10 mg Take 1 tablet by 90 tablet 3 2021 TabletIndications: Familial mouth daily. hypercholesterolemia ubiquinone (COENZYME Q10) 100 Take 100 mg by 0 mg Capsule mouth daily. amLODIPine (NORVASC) 5 mg Take 5 mg by mouth 0 Tablet nightly. levothyroxine (SYNTHROID) 88 88MCG = 1 0 12/07/ 006 mcg tablet Tablet(s), PO, Once daily documented as of this encounter Progress Notes Theodora Dorsey MD - 08/21/2021 4:29 PM EDT Transfusion Medicine Service Therapeutic Phlebotomy Procedure Type: Therapeutic Phlebotomy Requesting Physician: Bryan Tse Date of Procedure: 08/21/2021 Treatment Pathway: Hemochromatosis/Iron Overload Program Frequency of Phlebotomy: Every 2 Weeks Criteria for Performance of Therapeutic Phlebotomy: Hemoglobin greater than 11 g/dL Pre-Collection Hemoglobin value: 13 g/dL Criteria for Therapeutic Phlebotomy Met? Yes Volume Drawn (mL): 500 Volume Replaced (mL): 0 mL 0.9% normal saline Vital Signs: Blood Pressure: 145/75 mmHg Temperature: 36.3 ??C (97.3 ??F) degrees C Pulse: 68 bpm Therapeutic Goal: Ferritin (ng/mL) less than: 100 Frequency of Ferritin Monitoring: Every 3 phlebotomy Ferritin Drawn Today? No Reaction: No Comments: Tolerated well PHYSICIAN ASSESSMENT AND PLAN: I have reviewed the procedure note and the patient medical record. This patient requires on-going therapeutic phlebotomy. The current treatment regimen remains appropriate. Recent Labs 08/07/21 1030 06/21/21 1425 FERRITIN [id number]* Theodora Dorsey MD 08/21/2021 Associated attestation - Mirtha oBss MD - 08/21/2021 8:18 PM EDT ATTENDING MD ATTESTATION: I reviewed the clinical note and agree with the assessment and plan presented by Dr. Dorsey. Anticipate that ferritin will be at goal next time it is checked. Frequency should be increased to every 2-4 months at that time. MIRTHA BOSS MD 08/21/2021 documented in this encounter Plan of Treatment Upcoming Encounters Date Type Specialty Care Team Description 03/28/2022 Appointment 06/20/2022 Appointment Hematology and Oncology 06/20/2022 Office Visit Hematology and Oncology Josiah Tse MD [facility] HEMATOLOGY/ONCOL [facility]ARCUS DEPT. [place], [place] [address] (Wo rk) documented as of this encounter Visit Diagnoses Diagnosis Elevated ferritin Other abnormal blood chemistry documented in this encounter Care Teams Senior Stack Engineer Relationship Specialty Start Date End Date Arnaldo Marcus DO PCP - General Family Medicine 09/11/[address] [facility] [place] [address] documented as of this encounter
--- OUTSIDE RECORDS SUMMARY | 2022-03-20 12:37 | XMS_ITS | Encounter Summary ---
:1960 Author Organization [facility] [place] [address] Care Team Providers Name Role Phone Arnaldo Marcus DO Primary Care Provider Encounter Details Date Type Department Care Team Description 05/20/2020 TH Visit Cardiology at [facility] Vikas Gotti Nutritional (TeleHealth) [facility] RD counseling [facility] [phone] [place] [address] Social History Tobacco Use Types Packs/Day Years [...] place to sleep or slept in a longterm (including now)? Sex Assigned at Date Recorded Female 06/20/2021 10:20 AM EST documented as of this encounter Progress Notes Vikas Gotti, RD - 05/20/2020 2:00 PM EST 05/20/20 This is a TeleHealth Nutrition Visit. [address] [place] [address] [place] [address] There is no such number on file (mobile). [phone] (home) Patient verbalizes consent to the telehealth visit for nutrition counseling and coaching. Patient islocated at home. The current time is 14:00. Call ended time is: 14:20. Tarsha Pedraza is a 60 y.o. female originally referred to Nutrition Counseling by Dr. Mora for elevated LDL cholesterol and modestly elevated triglycerides in the setting of statin intolerance. Current Diet: 2 grams sodium, 7 gram saturated fat (5% of 1200 calories), Mediterranean Tarsha Pedraza's Overall Goal: reduce lipids and body weight Goals from last visit: reduce otyb-durxwnftp-wcr foods Interim Events: Current Outpatient Medications Medication Instructions ??? amLODIPine (NORVASC) 5 mg, Oral, NIGHTLY ??? ezetimibe (ZETIA) 10 mg, Oral, DAILY ??? levothyroxine (SYNTHROID) 88 mcg tablet 88MCG = 1 Tablet(s), PO, Once daily ??? losartan-hydrochlorothiazide (HYZAAR) 100-25 mg Tablet 1 tablet, Oral, DAILY ??? rosuvastatin (Crestor) 5 mg Tablet TAKE 1 TABLET ON SATURDAY, SATURDAY AND Saturday and Saturday ??? ubiquinone (COENZYME Q10) 100 mg, Oral, DAILY Last Weight: 143# stable Labs: 05/2020 A1c 5.7 TC 185 down from 285 on 05/15/2019 HDL 50 up from 46 LDL 105 down from 195 Trig 150 down from 224 MEDICAL NUTRITION THERAPY FINDINGS: Food and Lifestyle-related Successes: ?? Eliminated eggs ?? Used newsletter for 7-minute workout with Anupama someone. Added to morning exercise routine. ?? Used newsletter for lentil salad recipe. ?? Fish twice/week (tuna, salmon, cod; avoid shrimp, scallops). Likes sardines. ?? Legumes: was once/week before holidays Barriers: Lindt coconut dark chocolate - 3 pcs = [address] Assessment: Nutrition Intervention: ?? Tarsha misses eating eggs; consider egg-white mini-souffles in muffin tins, freeze, re-heat forbreakfast, lunch, or snack. ?? Add one more fish meal/week with water-pack, ut-ocjl-bsugy sardines. Try with pesto on one slice toast or use to top a vegetable salad. ?? Replace dark chocolate candy with cocoa powder added to hot coffee or hot milk; make avocado chocolate pudding/ice cream. ?? Increase legumes to daily. Sent recipe for OmegaGenesisiar. ?? Suggested she begin reading labels and limiting her saturated fat intake to 7 g/day. Tarsha took notes and commented that these would be doable in her current lifestyle. PLAN: RTC 1 year. Stay in contact via e-mail in the meantime with monthly nutrition newsletter. Date 09/11/2019 Patient Name Tarsha Pedraza 1960 Ref: Dr. Mora for elevated LDL cholesterol and modestly elevated triglycerides in the setting of statin intolerance. 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 Active Ambulatory Problems Diagnosis Date Noted ??? [...] & FINDINGS: 59 y.o. female referred to Neon Light Installer for MNT to support treatment for Type [...] juice. Supplementation with a B-complex which includes dfvzkrcsd-0-wzgkssvhp (activated form of B6) may be useful [...] to consume two cups or more cooked spinach/tuvaluan chard/collards plus 8 oz/day fortified orange juice or tofu/legumes or sardines daily to consume adequate dietary calc ium. [place] on dairy products for calcium is not encouraged for most adults due to insufficient lactase to digest the milk sugar, lactose, and due to the hyper-allergenicity of casein and whey proteins which are found in dairy products of all animals. [place] on calcium supplements should be discouraged, as [...] overcome barriers Goal Date: 1. Begin using LaunchPoint or other tom to monitor 2.Limit saturated [...] soup, hummus, home-made refried beans B) Reduce dmy-kuxzcevy-dfeub foods including alcohol, desserts, deep-fried foods, candy. NUTRITION MONITORING PLAN/EVALUATION/SURVEILLANCE PLAN: RTC: 6 months. E-mail link to [facility] Cardiac and Pulmonary Rehab channel playlists. E-mail [...] and Oncology Josiah Tse MD [facility] er [place] [address] (Wo rk) documented as of this encounter Visit Diagnoses Diagnosis Nutritional counseling documented in this encounter Care Teams Forensic Audit Expert Relationship Specialty Start Date End Date Arnaldo Marcus DO PCP - General Family Medicine 09/11/[address] [place] [address] documented as of this encounter
--- OUTSIDE RECORDS SUMMARY | 2022-03-20 12:37 | XMS_ITS | Encounter Summary ---
:1960 Author Organization [facility] [place] [address] Care Team Providers Name Role Phone Arnaldo Marcus DO Primary Care Provider Reason for Visit Reason Comments Medication Refill Encounter Details Date Type Department Care Team Description 04/07/2020 Refill Cardiology at [facility] Nirmala Mora MD Medication Refill [facility] [place] [address] CARDIOLOGY DEPT [phone] [place], [place] [address] (Wo rk) Social History Tobacco Use Types [...] place to sleep or slept in a custodial (including now)? Sex Assigned at Date Recorded Female 06/20/2021 10:20 AM EST documented as of this encounter Miscellaneous Notes Telephone Encounter - Leticia Verdin RN - 04/08/2020 2:39 PM EST MITALI: 09/11/19 Per assessment and Plan: Tarsha is tolerating the combination of ezetimibe 10 mg daily and rosuvastatin 5 mg 3 times a week. She has lost between 6 and 10 pounds since her last visit. She is eating better and exercising 90 minutes a day. I have applauded all of her efforts. I have asked her to limit red meat to no more thanonce a week. I will call her as soon as I receive her lipid panel. We again discussed the fact that she has familial hypercholesterolemia, a genetic disorder and that it is possible I may recommend a PCSK9 inhibitor if her lipids have not improved substantially. The goal for her is an LDL less than 100 mg/dL ?? Plan ?? Medication changes: none right now ?? Investigations: labs this coming week ?? Counseling: I explained my impression and answered all Tarsha's questions. ?? Follow up 6 months Next f/u visit scheduled for: 05/20/2020 Leticia Verdin RN Cardiology Clinic at [facility] [phone] documented in this encounter Plan of Treatment Upcoming Encounters Date Type Specialty Care Team Description 03/28/2022 Appointment 06/20/2022 Appointment Hematology and Oncology 06/20/2022 Office Visit Hematology and Oncology Josiah Tse MD [facility] HEMATOLOGY/ON[facility]ARCUS DEPT. [place], [place] [address] (Wo rk) documented as of this encounter Visit Diagnoses Diagnosis Familial hypercholesterolemia Pure hypercholesterolemia documented in this encounter Care Teams Solar Thermal Technician Relationship Specialty Start Date End Date Arnaldo Marcus DO PCP - General Family Medicine 09/11/18 [address] [place] [address] documented as of this encounter
--- OUTSIDE RECORDS SUMMARY | 2022-03-20 12:37 | XMS_ITS | Encounter Summary ---
:1960 Author Organization [facility] [place] [address] Care Team Providers Name Role Phone Arnaldo Marcus DO Primary Care Provider Reason for Visit Consultation (Routine) - Specialty Diagnoses / Procedures Referred By Contact Refer red To Contact Cardiology Diagnoses Hyperlipidemia, unspecified Arnaldo Marcus DO McGowan, Mary P, MD [address] [place] [address] [address] [place], [place] [address] [address] [place] [address] Phone: Fax: Referral ID Status Reason Start Date Expiration Date Visits V isits Requested Authorized [id number] Consult, Test 02/26/2019 02/26/2020 6 6 & Treat PCP Updated and/or Approved Encounter Details Date Type Department Care Team Description 05/22/2019 Office Visit Cardiology at [facility] Parrish Terry Hyperlipidemia type III; [facility] MD Sonny Familial hypercholesterolemia [facility] [address] CARDIOLOGY DEPT [phone] [place] [address] Social History Tobacco Use Types Packs/Day Years [...] place to sleep or slept in a fdc (including now)? Sex Assigned at Date Recorded Female 06/20/2021 10:20 AM EST documented as of this encounter Last Filed Vital Signs Vital Sign Reading Time Taken Comments Blood Pressure 156/88 05/22/2019 12:47 PM EST Pulse 98 05/22/2019 12:47 PM EST Temperature - - Respiratory Rate - - Oxygen Saturation 96% 05/22/2019 12:47 PM EST Inhaled Oxygen Concentration - - Weight 65 kg (143 lb 6.4 oz) 05/22/2019 12:47 PM EST Height 154 cm (5' 0.63) 05/22/2019 12:47 PM EST Body Mass Index 27.43 05/22/2019 12:47 PM EST documented in this encounter Progress Notes Parrish Terry MD - 05/22/2019 1:00 PM EST [facility] Lipid Clinic--Initial Consultation ID/PMH Tarsha is a 59 y.o. followed by Arnaldo Marcus DO with the following problems: Patient Active Problem List Diagnosis Code ??? Elevated ferritin R79.89 ??? Statin intolerance Z78.9 ??? Hyperlipidemia type III E78.2 ??? HTN (hypertension) I10 Social history Tarsha is a 59-year-old woman who lives at home with her Arnaldo. 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 They have 2 children ages 33 and 30. She is a formersmoker - she quit many many years ago having smoked for 10 years. She drinks a glass of wine daily. She enjoys cooking, walking, gardening. Present Illness Tarsha Pedraza is seen at the request of Dr. Arnaldo Marcus for evaluation and management of dyslipidemia, specifically markedly elevated LDL cholesterol and modestly elevated triglycerides in the setting of statin intolerance. She was on statins for many years without issues. Tarsha was on both atorvastatin and rosuvastatin. She has been on high and low dose of both atorvastatin and rosuvastatin all of which have caused significant musculoskeletal pain and weakness which resolved/greatly improved with discontinuation onlyto recur with rechallenge. The most recent statin she has taken is rosuvastatin at 5 mg daily. This also caused musculoskeletal issues, dizziness and possibly a hoarse voice. She has a brother who recently was diagnosed with coronary artery disease at the age of 50 and her mother also had coronary artery disease but at 87. She had a maternal uncle who at 50 of an [place]. Her highest reported total cholesterol was 341 mg/dL with an LDL of 230 mg/dL. laboratories drawn May 15, 2019 still reflected some statin on board - stopped the rosuvastatin on May 07 Total cholesterol 285 mg/dL Triglycerides 224 mg/dL HDL cholesterol 46 mg/dL LDL cholesterol 195 mg/dL Evaluation for secondary causes Labs studies have included normal liver, thyroid and glucose studies. She takes HCTZ which can be associated with secondary dyslipidemia (elevated triglycerides) but she appears to need this for BP control (she is on 3 BP meds). Dietary habits Breakfast: eggs, coffee cream Lunch: pasta red sauce / beef, pork, chicken and veggies Dinner: meat, pasta, veggies Snacks: none Frequency of dining out: 2 times a month ETOH: 1 glass a wine Exercise habits Walks 2 walks daily 40 and 20 minutes and some pushups etc Review of Systems: Constitutional: negative for fever, positive weight gain - 11 pounds over this past year HEENT: Negative for visual problems, sore throat, and sinus issues Cardiac: positive for chest pressure (no issues with exercise but when stressed), No SOB on exertionor at rest, rare palpitations Respiratory: No SOB, cough, wheezing, hemoptysis Gastrointestinal: No abdominal pain, nausea, vomiting, diarrhea, Genitourinary: No nocturia, or dysuria Musculoskeletal: positive for calf muscle pain might be better off rosuvastatin Skin: No suspicious lesions, Rashes, no itching Neurological: No headaches, no sensory or motor deficits, no dizziness Endocrine: Denies polyuria, polydipsia, heat or cold intolerance Hematologic: No abnormal bleeding, bruising, lymphadenopathy Medications Current Outpatient Medications Medication Sig Dispense Refill ??? ubiquinone (COENZYME Q10) 100 mg Capsule Take 100 mg by mouth daily. ??? losartan-hydrochlorothiazide (HYZAAR) 100-25 mg Tablet Take 1 tablet by mouth daily. ??? amLODIPine (NORVASC) 5 mg Tablet Take 5 mg by mouth nightly. ??? levothyroxine (SYNTHROID) 88 mcg tablet 88MCG = 1 Tablet(s), PO, Once daily ??? ezetimibe (ZETIA) 10 mg Tablet Take 1 tablet by mouth daily. 90 tablet 3 ??? rosuvastatin (CRESTOR) 5 mg Tablet One tablet M, W, F 45 tablet 3 No current facility-administered medications for this visit. Allergies Amoxicillin trihydrate and Lisinopril Physical Exam General: 59-year-old woman with a BMI of 27.43 VS: BP 156/88 Pulse 98 Ht 154 cm (5' 0.63) Wt 65 kg (143 lb 6.4 oz) SpO2 96% BMI 27.43 kg/m?? BP at home 130/80 Skin: Warm and dry. eruptive xanthomas. HEENT: Anicteric sclera. No xanthelasma. Corneal arcus Lungs: Clear Heart: S1S2, No MGR, RRR Abd: Soft and nontender. Ext: She has tendon xanthomas extensor tendons of her hands. Her Achilles is thickened. Neuro: No focal motor deficits. Psych: Appropriate affect. Assessment Tarsha is a 59-year-old woman with a markedly elevated LDL cholesterol and a modestly elevated triglyceride level who has unfortunately been statin intolerant (see HPI). Tarsha has a strong family history of cardiovascular disease. Her untreated LDL is 230 mg/dL and her physical exam is consistentwith familial hypercholesterolemia. It is notable that Tarsha was able to tolerate statins for many years before developing side effects from them. She is willing to try intermittent statin therapy in conjunction with ezetimibe 10 mg daily. I have asked her to begin ezetimibe 10 mg per day. One week later she will re- start rosuvastatin at 5 mg Saturday, Saturday, and Saturday. She also met with our registered dietitian for dietary counseling. I encouraged her to continue her excellent exercise program. If Tarsha is not able to tolerate the intermittent dosing of rosuvastatin and her LDL remains elevated while on ezetimibe I will recommend a PCSK9 inhibitor. Today we discussed these agents as a possibility in the future and Tarsha is amenable to this. Action ?? Explained my impression and answered all questions Follow up 3 months 09-11-19 PARRISH TERRY MD 05/22/2019 This visit was 60 minutes in length of which 40 minutes were spent in counseling CC: Arnaldo Marcus DO documented in this encounter Plan of Treatment Upcoming Encounters Date Type Specialty Care Team Description 03/28/2022 Appointment 06/20/2022 Appointment Hematology and Oncology 06/20/2022 Office Visit Hematology and Oncology Josiah Tse MD [facility] HEMATOLOGY/[facility] DEPT. [place], [place] [address] (Wo rk) documented as of this encounter Visit Diagnoses Diagnosis Hyperlipidemia type III Mixed hyperlipidemia Familial hypercholesterolemia Pure hypercholesterolemia documented in this encounter Care Teams Retail Field Merchandiser Relationship Specialty Start Date End Date Arnaldo Marcus DO PCP - General Family Medicine 09/11/[address] [place] [address] [address] [place] [address] documented as of this encounter
--- OUTSIDE RECORDS SUMMARY | 2022-03-20 12:37 | XMS_ITS | Encounter Summary ---
:1960 Author Organization [facility] Address [address] [place] [address] Care Team Providers Name Role Phone Arnaldo Marcus DO Primary Care Provider Reason for Visit Reason Onset Date Comments Medication Refill 04/14/2020 Bairon Wilson Encounter Details Date Type Department Care Team Description 04/14/2020 Refill Cardiology at [facility] Nirmala Mora MD Medication Refill [facility] (Ze tia, Crestor) [place] [address] CARDIOLOGY DEPT [phone] [place] [address] (Wo rk) Social History Tobacco Use Types [...] place to sleep or slept in a residential (including now)? Sex Assigned at Date Recorded Female 06/20/2021 10:20 AM EST documented as of this encounter Plan of Treatment Upcoming Encounters Date Type Specialty Care Team Description 03/28/2022 Appointment 06/20/2022 Appointment Hematology and Oncology 06/20/2022 Office Visit Hematology and Oncology Josiah Tse MD [facility] er HEMATOLOGY/ONCOL MARCUS DEPT. [place], [place] [address] (Wo rk) documented as of this encounter Visit Diagnoses Diagnosis Familial hypercholesterolemia Pure hypercholesterolemia documented in this encounter Care Teams Radiation / Chemistry Technician Relationship Specialty Start Date End Date Arnaldo Marcus DO PCP - General Family Medicine 09/11/[address] [place] [address] documented as of this encounter
--- OUTSIDE RECORDS SUMMARY | 2022-03-20 12:37 | XMS_ITS | Encounter Summary ---
:1960 Author Organization [facility] [place] [address] Care Team Providers Name Role Phone Arnaldo Marcus DO Primary Care Provider Reason for Visit Reason Comments Medication Refill Encounter Details Date Type Department Care Team Description 03/23/2021 Refill [place]iology [place] [facility] [place]rish Terry MD Medication Refill [facility] [place] [address] CARDIOLOGY DEPT [phone] [place], [place] [address] (Wo rk) Social History Tobacco [...] place to sleep or slept in a mcfp (including now)? Sex Assigned at Date Recorded Female 06/20/2021 10:20 AM EST documented as of this encounter Miscellaneous Notes Telephone Encounter - Corrie Mcnair, RN - 03/24/2021 4:22 PM EST Received prescription refill request for Zetia from [facility], Refill request for 90 days with 3 refills Reviewed Epic record and last office note from Dr. Terry dated 05/20/20 Plan ?? Medication changes: none ?? Investigations: labs and a visit in 12 months ?? Counseling: I explained my impression and answered all Tarsha's questions. Including questions regarding what time of day is best to take ezetimibe ?? Follow up 12 months ?? PARRISH TERRY MD 05/16/2020 Refill prepped and forwarded to Provider for authorization JORJE Dominguez documented in this encounter Plan of Treatment Upcoming Encounters Date Type Specialty Care Team Description 03/28/2022 Appointment 06/20/2022 Appointment Hematology and Oncology 06/20/2022 Office Visit Hematology and Oncology Josiah Tse MD [facility] HEMATOLOGY/ONCOL NAWAF DEPT. [place], [place] [address] (Wo rk) documented as of this encounter Visit Diagnoses Diagnosis Familial hypercholesterolemia Pure hypercholesterolemia documented in this encounter Care Teams Internal Security Manager Relationship Specialty Start Date End Date Arnaldo Marcus DO PCP - General Family Medicine 09/11/[address] [place] [address] documented as of this encounter
--- OUTSIDE RECORDS SUMMARY | 2022-03-20 12:37 | XMS_ITS | Encounter Summary ---
:1960 Author Organization [facility] [place] [address] Care Team Providers Name Role Phone Arnaldo Marcus DO Primary Care Provider Reason for Visit Reason Comments Procedure Consultation (Routine) - Authorized Specialty Diagnoses / Procedures Referred By Contact Refer red To Contact Diagnoses Elevated ferritin Carrier of hemochromatosis HFE gene mutation Bryan Tse [facility] Bloo d Donor Prgm [facility] HEMATOLOGY/[place] [address] [place] [address] Referral ID Status Reason Start Date Expiration Visits Visits Date Requested Authorized [id number] Authorized Consult, 06/25/2021 06/25/2022 26 26 Test & Treat Encounter Details Date Type Department Care Team Description 09/26/2021 Hospital Encounter [place] [address] Social History Tobacco Use Types Packs/Day [...] place to sleep or slept in a half-way (including now)? Sex Assigned at Date Recorded Female 06/20/2021 10:20 AM EST documented as of this encounter Last Filed Vital Signs Vital Sign Reading Time Taken Comments Blood Pressure 142/76 09/26/2021 10:44 AM EDT Pulse 76 09/26/2021 10:44 AM EDT Temperature 36.2 ??C (97.2 ??F) 09/26/2021 10:44 AM EDT Respiratory Rate - - Oxygen Saturation - - Inhaled Oxygen Concentration - - Weight 59 kg (130 lb) 09/26/2021 10:44 AM EDT Height 152.4 cm (5') 09/26/2021 10:44 AM EDT Body Mass Index 25.39 09/26/2021 10:44 AM EDT documented in this encounter Medications at Time [...] levothyroxine (SYNTHROID) 88 88MCG = 1 0 006 mcg tablet Tablet(s), PO, Once daily documented as of this encounter Progress Notes Vic Solis MD - 09/26/2021 12:40 PM EDT Transfusion Medicine Service Therapeutic Phlebotomy Procedure Type: Therapeutic Phlebotomy Requesting Physician: Bryan Tse Date of Procedure: 09/26/2021 Treatment Pathway: Hemochromatosis/Iron Overload Program Frequency of Phlebotomy: Every 2 Weeks Criteria for Performance of Therapeutic Phlebotomy: Hemoglobin greater than 11 g/dL Pre-Collection Hemoglobin value: 12.8 g/dL Criteria for Therapeutic Phlebotomy Met? Yes Volume Drawn (mL): 500 Volume Replaced (mL): mL 0.9% normal saline Vital Signs: Blood Pressure: 142/76 mmHg Temperature: 36.2 ??C (97.2 ??F) degrees C Pulse: 76 bpm Therapeutic Goal: Ferritin (ng/mL) less than: 100 Frequency of Ferritin Monitoring: Every 3 phlebotomy Ferritin Drawn Today? Yes Reaction: No Comments: PHYSICIAN ASSESSMENT AND PLAN: I have reviewed the procedure note and the patient medical record. 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 Her ferritin level today is in our reference range. We are expanding the frequency of her phlebotomy procedure to every 2 month and check her ferritin level in every procedure.The current treatment regimen remains appropriate. Recent Labs 09/26/21 1109 08/07/21 1030 06/21/21 1425 FERRITIN 51 176 505* Vic Solis MD 09/26/2021 Associated attestation - Sanjana Elaine MD - 09/26/2021 2:39 PM EDT ATTENDING MD ATTESTATION: I reviewed the clinical note and agree with the assessment and plan presented by Dr. Solis. Sanjana Elaine MD 09/26/2021 documented in this encounter Miscellaneous Notes Addendum Note - Sanjana Elaine MD - 09/26/2021 2:39 PM EDT Encounter addended by: Sanjana Elaine MD on: 09/26/2021 2:39 PM Actions taken: Cosign clinical note with attestation documented in this encounter Plan of Treatment Upcoming Encounters Date Type Specialty Care Team Description 03/28/2022 Appointment 06/20/2022 Appointment Hematology and Oncology 06/20/2022 Office Visit Hematology and Oncology Josiah Tse MD [facility] HEMATOLOGY/ONCOL NAWAFY DEPT. [place], [place] [address] (Wo rk) documented as of this encounter Procedures Procedure Name Priority Date/Time Associated Diagnosis Comme nts HC FERRITIN, SERUM Routine 09/26/2021 11:09 AM Re sults for this EDT procedure are i n the results section. documented in this encounter Results Ferritin (09/26/2021 11:09 AM EDT) athologist Signature Ferritin 51 30 - 400 [facility] ng/mL [facility] Comment: Pediatric reference ranges not verified at [facility], interpret with caution. Reference ranges for females greater sim n 50 years of age approach values for men, i.e., 30-400 ng/mL. Specimen Anatomical Collection Method Collection Time Receive d Time (Source) Location / / Volume Laterality Blood 09/26/2021 11:09 09/26/2021 AM EDT 11:27 AM EDT Resulting Agency Comment Spec In Lab Sanjana Elaine MD CHEMISTRY ORDERABLES Performing Organization Address City/State/[place] [address] documented in this encounter Visit Diagnoses Diagnosis Elevated ferritin Other abnormal blood chemistry documented in this encounter Care Teams Freight And Passenger Agent Relationship Specialty Start Date End Date Arnaldo Marcus DO PCP - General Family Medicine 09/11/[address] [place] [address] documented as of this encounter
--- OUTSIDE RECORDS SUMMARY | 2022-03-20 12:37 | XMS_ITS | Encounter Summary ---
:1960 Author Organization [facility] [place] [address] Care Team Providers Name Role Phone Arnaldo Marcus DO Primary Care Provider Reason for Visit Reason Comments Procedure Consultation (Routine) - Authorized Specialty Diagnoses / Procedures Referred By Contact Refer red To Contact Diagnoses Elevated ferritin Carrier of hemochromatosis HFE gene mutation Bryan Tse [facility] Bloo d Donor Prgm [facility] HEMATOLOGY/[place] [address] [place] [address] Referral ID Status Reason Start Date Expiration Visits Visits Date Requested Authorized [id number] Authorized Consult, 06/25/2021 06/25/2022 26 26 Test & Treat Encounter Details Date Type Department Care Team Description 11/28/2021 Hospital Encounter Blood [place] [address] Social History Tobacco Use Types Packs/Day [...] place to sleep or slept in a mcc (including now)? Sex Assigned at Date Recorded Female 06/20/2021 10:20 AM EST documented as of this encounter Last Filed Vital Signs Vital Sign Reading Time Taken Comments Blood Pressure 145/79 11/28/2021 10:36 AM EDT Pulse 85 11/28/2021 10:36 AM EDT Temperature 36.3 ??C (97.3 ??F) 11/28/2021 10:36 AM EDT Respiratory Rate - - Oxygen Saturation - - Inhaled Oxygen Concentration - - Weight 59 kg (130 lb) 11/28/2021 10:36 AM EDT Height 152.4 cm (5') 11/28/2021 10:36 AM EDT Body Mass Index 25.39 11/28/2021 10:36 AM EDT documented in this encounter Medications [...] documented as of this encounter Progress Notes Sanjana Elaine MD - 11/28/2021 11:41 AM EDT Transfusion Medicine Service Therapeutic Phlebotomy Procedure Type: Therapeutic Phlebotomy Requesting Physician: Bryan Tse Date of Procedure: 11/28/2021 Treatment Pathway: Hemochromatosis/Iron Overload Program Frequency of Phlebotomy: Every 2 Months Criteria for Performance of Therapeutic Phlebotomy: Hemoglobin greater than 11 g/dL Pre-Collection Hemoglobin value: 13.5 g/dL Criteria for Therapeutic Phlebotomy Met? Yes Volume Drawn (mL): 500 Volume Replaced (mL): 0 mL 0.9% normal saline Vital Signs: Blood Pressure: 145/79 mmHg Temperature: 36.3 ??C (97.3 ??F) degrees C Pulse: 85 bpm Therapeutic Goal: Ferritin (ng/mL) less than: 100 Frequency of Ferritin Monitoring: Every phlebotomy Ferritin Drawn Today? Yes Reaction: No PHYSICIAN ASSESSMENT AND PLAN: I have reviewed the procedure note and the patient medical record. 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 The current treatment regimen remains appropriate. Recent Labs 11/28/21 1045 09/26/21 1109 08/07/21 1030 06/21/21 1425 FERRITIN 65 51 176 505* Luisa Nunez MD 11/28/2021 ATTENDING MD ATTESTATION: I reviewed the clinical note and agree with the assessment and plan presented by Dr. Alex Nunez. Sanjana Elaine MD 11/28/2021 documented in this encounter Miscellaneous Notes Addendum Note - Sanjana Elaine MD - 11/28/2021 2:38 PM EDT Encounter addended by: Sanjana Elaine MD on: 11/28/2021 2:38 PM Actions taken: Clinical Note Signed documented in this encounter Plan of Treatment Upcoming Encounters Date Type Specialty Care Team Description 03/28/2022 Appointment 06/20/2022 Appointment Hematology and Oncology 06/20/2022 Office Visit Hematology and Oncology Josiah Tse MD [facility] er HEMATOLOGY/ONCOL MARCUS DEPT. [place], [place] [address] (Wo rk) documented as of this encounter Procedures Procedure Name Priority Date/Time Associated Diagnosis Comme nts HC FERRITIN, SERUM Routine 11/28/2021 10:45 AM Re sults for this EDT procedure are i n the results section. documented in this encounter Results Ferritin (11/28/2021 10:45 AM EDT) athologist Signature Ferritin 65 30 - 400 [facility] ng/mL [facility] Comment: Pediatric reference ranges not verified at [facility], interpret with caution. Reference ranges for females greater sim n 50 years of age approach values for men, i.e., 30-400 ng/mL. Specimen Anatomical Collection Method Collection Time Receive d Time (Source) Location / / Volume Laterality Blood 11/28/2021 10:45 11/28/2021 AM EDT 11:05 AM EDT Resulting Agency Comment Spec In Lab Sanjana Elaine MD CHEMISTRY ORDERABLES Performing Organization Address City/State/ZIP [place] [address] documented in this encounter Visit Diagnoses Diagnosis Elevated ferritin Other abnormal blood chemistry documented in this encounter Care Teams Desk Representative Relationship Specialty Start Date End Date Arnaldo Marcus DO PCP - General Family Medicine 09/11/[address] [place] [address] documented as of this encounter
--- OUTSIDE RECORDS SUMMARY | 2022-03-20 12:37 | XMS_ITS | Encounter Summary ---
:1960 Author Organization [facility] [place] [address] Care Team Providers Name Role Phone Arnaldo Marcus DO Primary Care Provider Reason for Visit Reason Comments Medication Refill Encounter Details Date Type Department Care Team Description 03/24/2021 Refill Cardiology at [facility] Nirmala Mora MD Medication Refill [facility] [place] [address] CARDIOLOGY DEPT [phone] [place], [place] [address] (Wo rk) Social History Tobacco [...] place to sleep or slept in a alf (including now)? Sex Assigned at Date Recorded Female 06/20/2021 10:20 AM EST documented as of this encounter Plan of Treatment Upcoming Encounters Date Type Specialty Care Team Description 03/28/2022 Appointment 06/20/2022 Appointment Hematology and Oncology 06/20/2022 Office Visit Hematology and Oncology Josiah Tse MD [facility] HEMATOLOGY/ONCOL MARCUS DEPT. [place], [place] [address] (Wo rk) documented as of this encounter Visit Diagnoses Diagnosis Familial hypercholesterolemia Pure hypercholesterolemia documented in this encounter Care Teams Foot Worker Relationship Specialty Start Date End Date Arnaldo Marcus DO PCP - General Family Medicine 09/11/[address] [place] [address] documented as of this encounter
--- OUTSIDE RECORDS SUMMARY | 2022-03-20 12:37 | XMS_ITS | Encounter Summary ---
:1960 Author Organization [facility] Address [address] [place] [address] Care Team Providers Name Role Phone Unavailable Primary Care Provider Unavailable Encounter Details Date Type Department Care Team Description 09/10/2006 Results Only [facility] - Suzanne Jordan eufemia, Patricia Saavedra, TENNIS RACKET REPAIRER conversion [address] [place] [phone] (Wo rk) Social History Tobacco Use Types Packs/Day Years Used Date Smoking Tobacco: Never Assessed Sex Assigned at Date Recorded Not on file documented as of this encounter Plan of Treatment Not on filedocumented as of this encounter Procedures Procedure Name Priority Date/Time Associated Diagnosis Comme nts CYTOPATHOLOGY Routine 09/10/2006 0:00 EDT Results for this procedure are i n the results section . documented in this encounter Results CYTOPATHOLOGY (09/10/2006 0:00 EDT) Component Value Ref Test Analysis Performed At [facility] Range Method Time Signature Pathology CYTOPATHOLOGY REPORT [facility] Report: [facility] Reports generated via electronic interface contain original data; however they are lacking the format of the original report. Caution should be taken when reading/interpreting unformatte d reports. Name: ? TARSHA MCDERMOTT ? Accession #: ? [id number] : ? 1960 (Age: 46) ??F ?Collect Date: ? 09/10/2006 Location: ? [facility] ? Receive Date: ? 09/10/2006 Provider: ?PATRICIA HINESP Copy to: ? Specimen/Source: ? ThinPrep Pap Test, Cervix/Endocervix, processed on CMP.LY ThinPrep Imaging System, with manual evaluation Last Menstrual Period: ? 09/08/06 Other: ? HPVA - HPV testing requested if ASC-US on the current ThinPr ep Pap test. ? SPECIMEN ADEQUACY ? Satisfactory for Evaluation - transformation zone component present - scant squamous epithelial component secondary to excessive blood GENERAL CATEGORIZATION ? Other, see interpretation INTERPRETATION ? Endometrial cells present in a woman equal to o r greater than age 40. Negative for Intraepithelial Lesion. EDUCATIONAL NOTES/RECOMMENDATIONS ? Benign appearing endometrial cells [...] by: ? OBED Scott(ASCP) ? Report Date: ??09/13/2006 13:31 End of Report Specimen (Source) Anatomical Location Collection Method / Collectio n Time Received Time / Laterality Volume 09/10/2006 09/10/2006 Patricia LUGO PATHOLOGY ORDERABLES Performing Organization Address City/State/ZIP Code Phon e Number [facility] [address] [place] [address] SERVICES [facility] [address] [place] [address] documented in this encounter Visit Diagnoses Not on filedocumented in this encounter
--- OUTSIDE RECORDS SUMMARY | 2022-03-20 12:37 | XMS_ITS | Encounter Summary ---
:1960 Author Organization [facility] [place] [address] Care Team Providers Name Role Phone Arnaldo Marcus DO Primary Care Provider Encounter Details Date Type Department Care Team Description 05/25/2021 TH Visit Cardiology at [facility] Parrish Terry, Familial hypercholesterolemi a; (TeleHealth) [facility] Prediabetes [facility] [address] CARDIOLOGY DEPT [phone] [place], [place] [address] Social History Tobacco Use Types [...] to sleep or slept in a senior living (including now)? Sex Assigned at Date Recorded Female 06/20/2021 10:20 AM EST documented as of this encounter Progress Notes Parrish Terry MD - 05/25/2021 1:40 PM EST [facility] Lipid Clinic-Follow Up Visit as a telehealth visit Tarsha understands that she will be billed for this visit as if it were an in person visit ID/PMH Tarsha is a 61 y.o. followed by Arnaldo Marcus DO with the following problems: Patient Active Problem List Diagnosis Code ??? Elevated ferritin R79.89 ??? Statin intolerance Z78.9 ??? Hyperlipidemia type III E78.2 ??? HTN (hypertension) I10 Social history Tarsha is a 61-year-old woman who lives at home with her ??Arnaldo. 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 ??They have 2??adult children. ??She is a former??smoker??- she quit many many years ago having smoked for 10 years. ??She drinks a glass of wine daily. ??She enjoys cooking, walking, gardening.? Present Illness Tarsha Pedraza is seen to follow up on her dyslipidemia. Since her last appointment with me she reports no new medical issues. She has continued to take ezetimibe 10 mg daily and rosuvastatin 5 mg , , Saturday. Last visit her triglycerides were up slightly and her HDL down slightly. Additionally,her hemoglobin A1c was in the prediabetes range at 5.7%. At her last visit, I renewed all of her lipid-lowering medicines and counseled her on lifestyle measures aimed at improving her triglycerides, HDL and hemoglobin A1c. She returns now for a follow-up visit. ?? Exercise 90 minutes per day ?? Diet: B: left overs - no eggs coffee fat free half and half L: left overs / pasta with veggies water D: vegetables potatos chicken, fish- 2 times a week, pork, red meat once a week 2 glasses wine ?? ROS 122/76 140/80 General weight stable lost a few pounds - feels not so great - feels shaky/ Cardiac no issues / occ SOB I can't fill my lungs with air I am SOB when my BP goes up. MSK no issues Medications on losartan 100 mg and now on spironolactone 25 mg per day Current Outpatient Medications Medication Sig Dispense Refill ??? rosuvastatin (Crestor) 5 mg Tablet TAKE 1 TABLET BY MOUTH ON Saturday AND SATURDAY 52 tablet 0 ??? ezetimibe (Zetia) 10 mg Tablet TAKE 1 TABLET BY MOUTH DAILY 90 tablet 0 ??? ubiquinone (COENZYME Q10) 100 mg Capsule Take 100 mg by mouth daily. ??? amLODIPine (NORVASC) 5 mg Tablet Take 5 mg by mouth nightly. ??? levothyroxine (SYNTHROID) 88 mcg tablet 88MCG = 1 Tablet(s), PO, Once daily No current facility-administered medications for this visit. Allergies Amoxicillin trihydrate and Lisinopril Labs Total cholesterol 195 mg/dL Triglycerides 115 mg/dL HDL cholesterol 78 mg/dL LDL cholesterol 94 mg/dL Fasting blood sugar 105 mg/dL TSH 0.22 uIU/mL (normal 0.36-3.74) Assessment Tarsha's lipids have improved substantially since her last visit. I suspect her increased exerciseand attention to diet have served to both lower her triglycerides and raise her HDL. I have recommended continuation of four weekly rosuvastatin at 5 mg and daily ezetimibe at 10 mg. Tarsha appears over replaced in terms of her thyroid. It is possible that her blood pressure and shaky feeling are related to being over replaced. I completely agree with Dr Marcus's recommendation to reduce her levothyroxine to 75 mcg/day. Tarsha's blood sugar remains in the prediabetes range but has been relatively stable over the course of the last 3 years ranging from 98 mg/dL to 108 mg/dL. I encouraged continued restriction of simple carbohydrates. I have reviewed Tarsha's medications and we will plan to see her in 1 year at which time we will check lipids, TSH, and fasting blood sugar. Finally, it is notable that Tarsha had iron studies. I did not order these but pointed out to her that her ferritin is elevated at 416 ng/mL with normal being between 8- 252 ng/mL. 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 I recommended she follow-up with Dr. Marcus on this. Apparently, it is recommended that she have phlebotomy for this but this is not possible presently due to limitations in the hospital related to coronavirus. Plan ?? Medication changes: None ?? Investigations: Labs and a visit in 12 months ?? Counseling: I explained my impression and answered all Tarsha's questions. This visit was a total of 30 minutes 20 minutes spent on the telephone and telehealth and 10 minutesspent reviewing her chart prior to her visit and charting following her visit Follow up 12 months PARRISH TERRY MD 05/25/2021 CC: Arnaldo Marcus DO documented in this encounter Plan of Treatment Upcoming Encounters Date Type Specialty Care Team Description 03/28/2022 Appointment 06/20/2022 Appointment Hematology and Oncology 06/20/2022 Office Visit Hematology and Oncology Josiah Tse MD [facility] HEMATOLOGY/ONCOL NAWAFY DEPT. [place], [place] [address] (Wo rk) Scheduled Orders Name Type Priority Associated Diagnoses Order S chedule Lipid Panel (Reflex Lab Routine Familial hypercholest erolemia Expected: Direct LDL) 05/25/2022, Expires: 2022 TSH Lab Routine Familial hypercholesterolemi a Expected: 05/25/2022 (Approximate), Expires: 2022 Hemoglobin A1c Lab Routine Familial hypercholesterole junior Expected: 05/25/2022, Expires: 2022 documented as of this encounter Visit Diagnoses Diagnosis Familial hypercholesterolemia Pure hypercholesterolemia Prediabetes Other abnormal glucose documented in this encounter Care Teams Wallpaper Printer Helper Relationship Specialty Start Date End Date Arnaldo Marcus DO PCP - General Family Medicine 09/11/[address] [place] [address] [address] [place] [address] documented as of this encounter
--- OUTSIDE RECORDS SUMMARY | 2022-03-20 12:37 | XMS_ITS | Encounter Summary ---
:1960 Author Organization [facility] [place] [address] Care Team Providers Name Role Phone Arnaldo Marucs DO Primary Care Provider Reason for Visit Reason Comments Procedure Consultation (Routine) - Authorized Specialty Diagnoses / Procedures Referred By Contact Refer red To Contact Diagnoses Elevated ferritin Carrier of hemochromatosis HFE gene mutation Bryan Tse [facility] Donor [facility] HEMATOLOGY/[place] [address] [place] [address] Referral ID Status Reason Start Date Expiration Visits Visits Date Requested Authorized [id number] Authorized Consult, 06/25/2021 06/25/2022 26 26 Test & Treat Encounter Details Date Type Department Care Team Description 09/05/2021 Hospital Encounter [place] [address] Social History Tobacco Use Types Packs/Day [...] Sign Reading Time Taken Comments Blood Pressure 130/70 09/05/2021 10:36 AM EDT Pulse 64 09/05/2021 10:36 AM EDT Temperature 36.4 ??C (97.5 ??F) 09/05/2021 10:36 AM EDT Respiratory Rate - - Oxygen Saturation - - Inhaled Oxygen Concentration - - Weight 59 kg (130 lb 1.1 oz) 09/05/2021 10:36 AM EDT Height - - Body Mass Index 25.2 06/21/2021 12:47 PM EST documented in this encounter Medications at Time [...] documented as of this encounter Progress Notes Tam Ramirez MD - 09/05/2021 11:55 AM EDTSummary: TP Note Transfusion Medicine Service Therapeutic Phlebotomy Procedure Type: Therapeutic Phlebotomy Requesting Physician: Bryan Tse Date of Procedure: 09/05/2021 Treatment Pathway: Hemochromatosis/Iron Overload Program Frequency of Phlebotomy: Every 2 Weeks Criteria for Performance of Therapeutic Phlebotomy: Hemoglobin greater than 11 g/dL Pre-Collection Hemoglobin value: 13.5 g/dL Criteria for Therapeutic Phlebotomy Met? Yes Volume Drawn (mL): 500 Volume Replaced (mL): 0 mL 0.9% normal saline Vital Signs: Blood Pressure: 130/70 mmHg Temperature: 36.4 ??C (97.5 ??F) degrees C Pulse: 64 bpm Therapeutic Goal: Ferritin (ng/mL) less than: 100 Frequency of Ferritin Monitoring: Every 3 phlebotomy Ferritin Drawn Today? No Reaction: No Comments: PHYSICIAN ASSESSMENT AND PLAN: I have reviewed the procedure note and the patient medical record. 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 The current treatment regimen remains appropriate. If her next ferritin is at goal, frequency should be increased to every 2-4 months. Recent Labs 08/07/21 1030 06/21/21 1425 FERRITIN 176 505* Sheila Senior DO 09/05/2021 ATTENDING REVIEW: I have reviewed the procedure note and the patient medical record. This patient requires on-going therapeutic phlebotomy. I agree with the plan as outlined by . TAM RAMIREZ MD 09/05/2021 documented in this encounter Miscellaneous Notes Addendum Note - Tam Ramirez MD - 09/05/2021 4:08 PM EDT Encounter addended by: Tam Ramirez MD on: 09/05/2021 4:08 PM Actions taken: Clinical Note Signed documented in this encounter Plan of Treatment Upcoming Encounters Date Type Specialty Care Team Description 03/28/2022 Appointment 06/20/2022 Appointment Hematology and Oncology 06/20/2022 Office Visit Hematology and Oncology Josiah Tse MD [facility] HEMATOLOGY/ONCOL NAWAF DEPT. [place], [place] [address] (Wo rk) documented as of this encounter Visit Diagnoses Diagnosis Elevated ferritin Other abnormal blood chemistry documented in this encounter Care Teams Director Of Agriculture Relationship Specialty Start Date End Date Arnaldo Marcus DO PCP - General Family Medicine 09/11/[address] [place] [address] documented as of this encounter
--- OUTSIDE RECORDS SUMMARY | 2022-03-20 12:37 | XMS_ITS | Encounter Summary ---
:1960 Author Organization [place] [address] Care Team Providers Name Role Phone Arnaldo Marcus DO Primary Care Provider Reason for Visit Consultation (Routine) - Specialty Diagnoses / Procedures Referred By Contact Refer red To Contact Cardiology Diagnoses Hyperlipidemia, unspecified Arnaldo Marcus DO McGowan, Mary P, MD [address] [place] [address] [place], [place] [address] [place] [address] Phone: Fax: Referral ID Status Reason Start Date Expiration Date Visits V isits Requested Authorized [id number] Consult, Test 02/26/2019 02/26/2020 6 6 & Treat PCP Updated and/or Approved Encounter Details Date Type Department Care Team Description 09/11/2019 TH Visit Cardiology at [facility] Parrish Terry (TeleHealth) [facility] Kevan Dennis MD hypercholesterolemia [facility] [address] CARDIOLOGY DEPT [phone] [place] [address] Social History Tobacco Use Types Packs/Day Years [...] encounter Progress Notes Parrish Terry MD - 09/11/2019 11:00 AM EDT [facility] Lipid [facility]-Follow Up Visit - Tarsha has agreed to a telephone visit - she understands she will be billed ID/PMH Tarsha is a 59 y.o. followed by Arnaldo Marcus DO with the following problems: Patient Active Problem List Diagnosis Code ??? Elevated ferritin R79.89 ??? Statin intolerance Z78.9 ??? Hyperlipidemia type III E78.2 ??? HTN (hypertension) I10 Social history Tarsha is a 59-year-old woman who lives at home with her Arnaldo. 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 They have 2 children ages 33 and 30. She is a formersmoker - she quit many many years ago having smoked for 10 years. She drinks a glass of wine daily. She enjoys cooking, walking, gardening. ?? Present Illness Tarsha Pedraza is seen at the request of Dr. Arnaldo Marcus for follow-up management of dyslipidemia, specifically markedly elevated LDL cholesterol and modestly elevated triglycerides in the setting of statin intolerance. ?? She was on statins for many years without issues then developed proximal muscle pain and weakness. Tarsha was on both atorvastatin and rosuvastatin. She has been on high and low dose of both atorvastatin and rosuvastatin all of which ultimately caused significant musculoskeletal pain and weakness which resolved/greatly improved with discontinuation only to recur with rechallenge. The most recent statin she has taken was rosuvastatin at 5 mg daily. This caused musculoskeletal issues, dizziness and possibly a hoarse voice. At her initial visit in May of this year I recommended daily ezetimibe and 5 mg of rosuvastatin on , W, F as she had never been treated with intermittent statin dosing. I did explain to her that if it did not improve I would likely recommend initiation of a PCSK 9 inhibitor. During our call todayTarsha confirmed that she is taking ezetimibe 10 mg daily and is tolerating the rosuvastatin at 5 mg , , and but she hasn't had her labs yet at [facility] due to concerns about COVID-19. 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 She also has a strong family history of CAD. She has a brother who recently was diagnosed with coronary artery disease at the age of 50 and her mother also had coronary artery disease. She had a maternal uncle who at 50 of an PA. Her highest reported total cholesterol was 341 mg/dL with an LDL of 230 mg/dL. Her [facility] network score is 10 with definite FH being a score of >8. She is currently walking 3 times a day total of 90 minutes a day Breakfast has cut back to 1/2 yolk a day and one egg white and mixing in veggies and coffee nonfat half and half Lunch: leftovers - Dinner: one - two veggies, chicken, beef, fish, (red meat 2 x a week) potato, pasta ?? ROS General: feeling well - now 133 at home Cardiac: no CP no SOB MSK: no issues except a period of muscle and joint aches after sitting a long time - resolves quickly Medications Current Outpatient Medications Medication Sig Dispense Refill ??? ubiquinone (COENZYME Q10) 100 mg Capsule Take 100 mg by mouth daily. ??? ezetimibe (ZETIA) 10 mg Tablet Take 1 tablet by mouth daily. 90 tablet 3 ??? rosuvastatin (CRESTOR) 5 mg Tablet One tablet M, W, F 45 tablet 3 ??? losartan-hydrochlorothiazide (HYZAAR) 100-25 mg Tablet Take 1 tablet by mouth daily. ??? amLODIPine (NORVASC) 5 mg Tablet Take 5 mg by mouth nightly. ??? levothyroxine (SYNTHROID) 88 mcg tablet 88MCG = 1 Tablet(s), PO, Once daily No current facility-administered medications for this visit. Allergies Amoxicillin trihydrate and Lisinopril Physical Exam - not performed telephone visit Labs Will get labs next week Assessment Tarsha is tolerating the combination of ezetimibe [...] is an LDL less than 100 mg/dL Plan ?? Medication changes: none right now ?? Investigations: labs this coming week ?? Counseling: I explained my impression and answered all Tarsha's questions. Follow up 6 months This was a 25 minute visit - 20 minutes of counseling Chart review before visit 10 minutes Chart documentation post visit 15 minutes PARRISH TERRY MD 09/10/2019 CC: Arnaldo Marcus DO documented in this encounter Plan of Treatment Upcoming Encounters Date Type Specialty Care Team Description 03/28/2022 Appointment 06/20/2022 Appointment Hematology and Oncology 06/20/2022 Office Visit Hematology and Oncology Josiah Tse MD [facility] HEMATOLOGY/ONCOL MARCUS [place], [place] [address] (Wo rk) documented as of this encounter Visit Diagnoses Diagnosis Familial hypercholesterolemia Pure hypercholesterolemia documented in this encounter Care Teams Arch Support Maker Relationship Specialty Start Date End Date Arnaldo Marcus DO PCP - General Family Medicine 09/11/[address] [place] [address] documented as of this encounter
--- OUTSIDE RECORDS SUMMARY | 2022-03-20 12:37 | XMS_ITS | Encounter Summary ---
:1960 Author Organization [facility] Address [address] [place] [address] Care Team Providers Name Role Phone Unknown, Provider Primary Care Provider Encounter Details Date Type Department Care Team Description 04/26/2021 Lab Requisition [facility] Outr Resulting Lab, Pathology & Laboratory Provider [facility] [address] [place] [address] Social History Tobacco Use Types Packs/Day Years Used Date Smoking Tobacco: Never Assessed Sex Assigned at Date Recorded Not on file documented as of this encounter Plan of Treatment Not on filedocumented as of this encounter Procedures Procedure Name Priority Date/Time Associated Diagnosis Comme nts COVID-19 TEST [facility] Today 04/25/2021 15:00 LAB PCR EST COVID-19 TESTING Routine 04/25/2021 15:00 Results for this EST procedure are i n the results section. documented in this encounter Results COVID-19 TEST [facility] LAB PCR (04/25/2021 15:00 EST) Specimen Anatomical Collection Method Collection Time Receive d Time (Source) Location / / Volume Laterality Swab 04/25/2021 15:00 04/26/2021 EST 16:24 EST Provider Outr Resulting Lab MICROBIOLOGY - GENERAL ORD ERABLES Performing Organization Address City/State/ZIP Code Phon e Number [facility] [address] [place] [address] SERVICES COVID-19 TESTING (04/25/2021 15:00 EST) Analysis Performed At Patho logist Time Signature COVID-19 Negative Negative 04/27/2021 [facility] rt-PCR Result 13:01 EST CENTER LABORATORY SERVICES Comment: This test has not been FDA cleared or ap proved. This test has been authorized by FDA under an EUA for use by authorized laboratories. This test has been authorized only for detection of nucleic acid fro m 2019-nCoV, not for any other viruses o r pathogens. This test is only authorized for the duration of the declaration that circumstances exist justifying the authorization of emergency use of in vitro d iagnostic tests for detection and/or jennifer gnosis of 2019-nCoV under section 564(b)(1) of Act, 21 U.S.C ?? 360bbb-3(b) (1), unless the authorization is terminated or revoked sooner. Negative results do not preclude 2019-nC oV infection and should not be used as the sole basis for treatment or other patient management decisions. Negative results must be combined with clinical observa tions, patient history, and epidemiologi ailin information. This test was developed and its performa nce characteristics determined by [facility]. It has not been cleared or approved by the US Food and Drug Administration. FDA does not require this test to go through premarket FDA review. This test is used for clinical purposes. It should not be regarded as investigational or for research. This laboratory is certified under the Clinical Laboratory Improvement Amendm ents (CLIA) as qualified to perform high complexity clinical laboratory testing. This test is based on the [facility] COVID-19 E mergency Use Authorization (EUA) assay, with minor modification as defined by the FDA Performed on the [employer] 7 Flex RT-PCR System. Performing Lab [facility] Lab 04/27/2021 13:01 EST [facility] SERVICES Specimen Anatomical Collection Method Collection Time Receive d Time (Source) Location / / Volume Laterality Swab 04/25/2021 15:00 04/26/2021 EST 16:24 EST Provider Outr Resulting Lab MICROBIOLOGY - GENERAL ORD ERABLES Performing Organization Address City/State/ZIP Code Phon e Number [facility] [address] [place] [address] SERVICES documented in this encounter Visit Diagnoses Not on filedocumented in this encounter Care Teams Welding Machine Operator Friction Relationship Specialty Start Date End Date Unknown, Provider, PCP - General 03/22/15 documented as of this encounter
--- OUTSIDE RECORDS SUMMARY | 2022-03-20 12:37 | XMS_ITS | Encounter Summary ---
:1960 Author Organization [facility] Address [address] [place] [address] Care Team Providers Name Role Phone Unknown, Provider Primary Care Provider Encounter Details Date Type Department Care Team Description 05/10/2020 Lab Requisition [facility] Outr Resulting Lab, Pathology & Laboratory Provider [facility] [address] [place] [address] Social History Tobacco Use Types Packs/Day Years Used Date Smoking Tobacco: Never Assessed Sex Assigned at Date Recorded Not on file documented as of this encounter Plan of Treatment Not on filedocumented as of this encounter Procedures Procedure Name Priority Date/Time Associated Diagnosis Comme nts COVID-19 TEST [facility] Today 05/10/2020 9:17 EST LAB PCR COVID-19 TESTING Routine 05/10/2020 9:17 EST Resu lts for this procedure are i n the results section. documented in this encounter Results COVID-19 TEST [facility] PCR (05/10/2020 9:17 EST) Specimen Anatomical Location Collection Method Collection Time Received Time (Source) / Laterality / Volume Swab ENTIRE NASOPHARYNX 05/10/2020 9:17 2019 / Unknown EST 16:07 EST Provider Outr Resulting Lab MICROBIOLOGY - GENERAL ORD ERABLES Performing Organization Address City/State/ZIP Code Phon e Number [facility] [address] [place] [address] SERVICES COVID-19 TESTING (05/10/2020 9:17 EST) Analysis Performed At [facility] logist Time Signature COVID-19 Negative Negative 05/11/2020 [facility] rt-PCR Result 14:44 EST CENTER LABORATORY SERVICES Comment: Negative results do not preclude 2019-[place] oV infection and should not be used as the sole basis for treatment or other patient management decisions. Negative results must be combined with clinical observa tions, patient history, and epidemiologi ailin information. This test was developed and its performa nce characteristics determined by [facility]. It has not been cleared or approved [...] testing. This test is based on the CDC COVID-19 E mergency Use Authorization (EUA) assay, with minor modification as defined by the FDA Performed on the [employer] 7 Flex. Performing Lab [employer] 7 [facility] 05/11/2020 14:4 4 EST [facility] Lab LABORATORY SERVICES Specimen Anatomical Collection Method Collection Time Receive d Time (Source) Location / / Volume Laterality Swab 05/10/2020 9:17 05/10/2020 EST 16:07 EST Provider Outr Resulting Lab MICROBIOLOGY - GENERAL ORD ERABLES Performing Organization Address City/State/ZIP Code Phon e Number [facility] [address] [place] [address] SERVICES documented in this encounter Visit Diagnoses Not on filedocumented in this encounter Care Teams Outside Sales Relationship Specialty Start Date End Date Unknown, Provider, PCP - General 03/22/15 documented as of this encounter
--- OUTSIDE RECORDS SUMMARY | 2022-03-20 12:37 | XMS_ITS | Encounter Summary ---
:1960 Author Organization [facility] Address [address] [place] [address] Care Team Providers Name Role Phone Unavailable Primary Care Provider Unavailable Encounter Details Date Type Department Care Team Description 08/31/2003 Results Only [place] - Suzanne Jordan eufemia, Patricia Saavedra, GAS FURNACE INSTALLER conversion [address] [place] [phone] (Wo rk) Social History Tobacco Use Types Packs/Day Years Used Date Smoking Tobacco: Never Assessed Sex Assigned at Date Recorded Not on file documented as of this encounter Plan of Treatment Not on filedocumented as of this encounter Procedures Procedure Name Priority Date/Time Associated Diagnosis Comme nts CYTOPATHOLOGY Routine 08/31/2003 0:00 EDT Results for this procedure are i n the results section . documented in this encounter Results CYTOPATHOLOGY (08/31/2003 0:00 EDT) Component Value Ref Test Analysis Performed At [facility] Range Method Time Signature Pathology CYTOPATHOLOGY REPORT [facility] Report: [facility] Reports generated via electronic interface contain original data; however they are lacking the format of the original report. Caution should be taken when reading/interpreting unformatte d reports. Name: ? TARSHA MCDERMOTT ? Accession #: ? [id number] : ? 1960 (Age: 43) ??F ?Collect Date: ? 08/31/2003 Location: ? [facility] ? Receive Date: ? 09/01/2003 Provider: ?PATRICIA HINESP Copy to: ? Specimen/Source: ?ThinPrep Pap Test, Cervix/Endoce rvix Last Menstrual Period: ? 08/25/03 ? SPECIMEN ADEQUACY ? Satisfactory for Evaluation - transformation zone component present GENERAL CATEGORIZATION ? Other, see interpretation INTERPRETATION ? Endometrial cells present in a woman equal to o r greater than age 40. Negative for Intraepithelial Lesion or Malignancy. ? COMMENT ? Benign appearing endometrial cells on Pap tests are usually a normal finding in women with regular menstrual cycles, especially i f the Pap was collected during the first h long-term of the menstrual cycle. ??There is data showing that endometrial cells on Pap tests may be associated with endometrial/uterine abnormalities in post menopausal women o r in premenopausal women with abnormal bleeding. ??There is limited data on the significance of benign endometrial cells in post menopausal women on HRT. ??Clinical correlation is r ecommended. Note: ?? The Pap test is not an accurate test for the screening of endometrial lesions and should not be used as a follow up in patients wi th clinical suspicion of endometrial pathology. ? Document reviewed and electronically signed by: ? OBED Scott(ASCP) ? Report Date: ??09/02/2003 13:26 End of Report Specimen (Source) Anatomical Location Collection Method / Collectio n Time Received Time / Laterality Volume 08/31/2003 09/01/2003 Patricia Mcdonald [facility] PATHOLOGY ORDERABLES Performing Organization Address City/State/ZIP Code Phon e Number [facility] [address] [place] [address] SERVICES [facility] [address] [place] [address] documented in this encounter Visit Diagnoses Not on filedocumented in this encounter
--- OUTSIDE RECORDS SUMMARY | 2022-03-20 12:37 | XMS_ITS | Encounter Summary ---
:1960 Author Organization [facility] [place] [address] Care Team Providers Name Role Phone Arnaldo Marcus DO Primary Care Provider Reason for Visit Reason Comments Procedure Consultation (Routine) - Authorized Specialty Diagnoses / Procedures Referred By Contact Refer red To Contact Diagnoses Elevated ferritin Carrier of hemochromatosis HFE gene mutation Bryan Tse [facility] Bloo d Donor [facility] HEMATOLOGY/[place] [address] [place] [address] Referral ID Status Reason Start Date Expiration Visits Visits Date Requested Authorized [id number] Authorized Consult, 06/25/2021 06/25/2022 26 26 Test & Treat Encounter Details Date Type Department Care Team Description 07/20/2021 Hospital Encounter [place] [address] Social History Tobacco Use Types Packs/Day [...] place to sleep or slept in a penitentiary (including now)? Sex Assigned at Date Recorded Female 06/20/2021 10:20 AM EST documented as of this encounter Last Filed Vital Signs Vital Sign Reading Time Taken Comments Blood Pressure 154/67 07/20/2021 10:03 AM EST Pulse 73 07/20/2021 10:03 AM EST Temperature 36.4 ??C (97.5 ??F) 07/20/2021 10:03 AM EST Respiratory Rate - - Oxygen Saturation - - Inhaled Oxygen Concentration - - Weight 59 kg (130 lb 1.1 oz) 07/20/2021 10:03 AM EST Height - - Body Mass Index 25.2 [...] levothyroxine (SYNTHROID) 88 88MCG = 1 0 07/28/2 006 mcg tablet Tablet(s), PO, Once daily documented as of this encounter Progress Notes Sanjana Elaine MD - 07/20/2021 2:04 PM EST Transfusion Medicine Service Therapeutic Phlebotomy Procedure Type: Therapeutic Phlebotomy Requesting Physician: Bryan Tse Date of Procedure: 07/20/2021 Treatment Pathway: Hemochromatosis/Iron Overload Program Frequency of Phlebotomy: (every 2 weeks) Weeks Criteria for Performance of Therapeutic Phlebotomy: Hemoglobin greater than 11 g/dL Pre-Collection Hemoglobin value: 13 g/dL Criteria for Therapeutic Phlebotomy Met? Yes Volume Drawn (mL): 500 Volume Replaced (mL): 0 mL 0.9% normal saline Vital Signs: Blood Pressure: 154/67 mmHg Temperature: 36.4 ??C (97.5 ??F) degrees C Pulse: 73 bpm Therapeutic Goal: Ferritin (ng/mL) less than: 100 Frequency of Ferritin Monitoring: Every 3 phlebotomy Ferritin Drawn Today? No Reaction: No PHYSICIAN ASSESSMENT AND PLAN: I have reviewed the procedure note and the patient medical record. This patient requires on-going therapeutic phlebotomy. The current treatment regimen remains appropriate. Recent Labs 06/21/21 1425 FERRITIN 505* Sanjana Elaine MD 07/20/2021 documented in this encounter Plan of Treatment Upcoming Encounters Date Type Specialty Care Team Description 03/28/2022 Appointment 06/20/2022 Appointment Hematology and Oncology 06/20/2022 Office Visit Hematology and Oncology Josiah Tse MD [facility] HEMATOLOGY/ONCOL NAWAFY DEPT. [place], [place] [address] (Wo rk) documented as of this encounter Visit Diagnoses Diagnosis Elevated ferritin Other abnormal blood chemistry documented in this encounter Care Teams Hot Wire Glass Tube Cutter Relationship Specialty Start Date End Date Arnaldo Marcus DO PCP - General Family Medicine 09/11/[address] [place] [address] documented as of this encounter
--- OUTSIDE RECORDS SUMMARY | 2022-03-20 12:37 | XMS_ITS | Encounter Summary ---
:1960 Author Organization [facility] Address [address] [place] [address] Care Team Providers Name Role Phone Unavailable Primary Care Provider Unavailable Encounter Details Date Type Department Care Team Description 08/29/2001 Results Only [facility] - Suzanne Jordan eufemia, Patricia Saavedra, GAUGE MAKER conversion [address] [place] [phone] (Wo rk) Social History Tobacco Use Types Packs/Day Years Used Date Smoking Tobacco: Never Assessed Sex Assigned at Date Recorded Not on file documented as of this encounter Plan of Treatment Not on filedocumented as of this encounter Procedures Procedure Name Priority Date/Time Associated Diagnosis Comme nts CYTOPATHOLOGY Routine 08/29/2001 0:00 EDT Results for this procedure are i n the results section . documented in this encounter Results CYTOPATHOLOGY (08/29/2001 0:00 EDT) Component Value Ref Test Analysis Performed At [facility] Range Method Time Signature Pathology CYTOPATHOLOGY REPORT [facility] Report: [facility] Reports generated via electronic interface contain original data; however they are lacking the format of the original report. Caution should be taken when reading/interpreting unformatte d reports. Name: ? TARSHA MCDERMOTT ? Accession #: ? [id number] : ? 1960 (Age: 41) ??F ?Collect Date: ? 08/29/2001 Location: ? [facility] ? Receive Date: ? 09/01/2001 Provider: ?PATRICIA MCDONALD GAUGE MAKER Copy to: ? Specimen/Source: ?ThinPrep Pap Test, Cervix/Endoce rvix Last Menstrual Period: ? 08/08/01 Hormonal/Contraceptive Status: ? Tubal ligation ? SPECIMEN ADEQUACY ? Satisfactory for Evaluation - transformation zone component present GENERAL CATEGORIZATION ? Negative for Intraepithelial Lesion or Malignancy ? Document reviewed and electronically signed by: ? Venita Yi, ??SCT(ASCP) ? Report Date: ??09/05/2001 07:27 End of Report Specimen (Source) Anatomical Location Collection Method / Collectio n Time Received Time / Laterality Volume 08/29/2001 09/01/2001 Patricia Mcdonald GAUGE MAKER PATHOLOGY ORDERABLES Performing Organization Address City/State/ZIP Code Phon e Number [facility] [address] [place] [address] SERVICES [facility] [address] [place] [address] documented in this encounter Visit Diagnoses Not on filedocumented in this encounter
--- OUTSIDE RECORDS SUMMARY | 2022-03-20 12:37 | XMS_ITS | Encounter Summary ---
:1960 Author Organization [facility] [place] [address] Care Team Providers Name Role Phone Aranldo Marcus DO Primary Care Provider Reason for Visit Reason Comments Procedure Consultation (Routine) - Authorized Specialty Diagnoses / Procedures Referred By Contact Refer red To Contact Diagnoses Elevated ferritin Carrier of hemochromatosis HFE gene mutation Bryan Tse, [facility] Donor [facility] HEMATOLOGY/[place] [address] [place] [address] Referral ID Status Reason Start Date Expiration Visits Visits Date Requested Authorized [id number] Authorized Consult, 06/25/2021 06/25/2022 26 26 Test & Treat Encounter Details Date Type Department Care Team Description 08/07/2021 Hospital Encounter Blood Donor Program El evated ferritin; at [facility] Carrier of hemochrom[place] [id number] Social History Tobacco Use Types Packs/Day Years [...] Sign Reading Time Taken Comments Blood Pressure 139/71 08/07/2021 10:13 AM EDT Pulse 70 08/07/2021 10:13 AM EDT Temperature 36.2 ??C (97.2 ??F) 08/07/2021 10:13 AM EDT Respiratory Rate - - Oxygen Saturation - - Inhaled Oxygen Concentration - - Weight 59 kg (130 lb) 08/07/2021 10:13 AM EDT Height - - Body Mass Index 25.19 06/21/2021 12:47 PM EST documented in this [...] encounter Progress Notes Theodora Dorsey MD - 08/07/2021 3:48 PM EDT Transfusion Medicine Service Therapeutic Phlebotomy Procedure Type: Therapeutic Phlebotomy Requesting Physician: Bryan Tse Date of Procedure: 08/07/2021 Treatment Pathway: Hemochromatosis/Iron Overload Program Frequency of Phlebotomy: Every 2 Weeks Criteria for Performance of Therapeutic Phlebotomy: Hemoglobin greater than 11 G/dL Hemoglobin before the procedure: 14.5g/dl. Criteria for Therapeutic Phlebotomy Met? Yes Volume Drawn (mL): 500 Volume Replaced (mL): 0 mL 0.9% normal saline Vital Signs: Blood Pressure: 139/71 mmHg Temperature: 36.2 ??C (97.2 ??F) degrees C Pulse: 70 bpm Therapeutic Goal: Ferritin (ng/mL) less than: 100 Frequency of Ferritin Monitoring: Every 3 phlebotomy Ferritin Drawn Today? Yes Reaction: No PHYSICIAN ASSESSMENT AND PLAN: I have reviewed the procedure note and the patient medical record. This patient requires on-going therapeutic phlebotomy. The current treatment regimen remains appropriate. Recent Labs 08/07/21 1030 06/21/21 1425 FERRITIN 176 505* Theodora Dorsey MD 08/07/2021 Associated attestation - Mirtha Boss MD - 08/07/2021 3:52 PM EDT ATTENDING MD ATTESTATION: I reviewed the clinical note and agree with the assessment and plan presented by Dr. Dorsey. MIRTHA BOSS MD 08/07/2021 documented in this encounter Plan of Treatment Upcoming Encounters Date Type Specialty Care Team Description 03/28/2022 Appointment 06/20/2022 Appointment Hematology and Oncology 06/20/2022 Office Visit Hematology and Oncology Josiah Tse MD [facility] HEMATOLOGY/ONCOL MARCUS DEPT. [place], [place] [address] (Wo rk) documented as of this encounter Procedures Procedure Name Priority Date/Time Associated Diagnosis Comme nts HC FERRITIN, SERUM Routine 08/07/2021 10:30 Elevated sydnie ritin Results for this AM EDT Carrier of procedure are i n hemochromatosis HFE the resu lts gene mutation section. documented in this encounter Results Ferritin (08/07/2021 10:30 AM EDT) athologist Signature Ferritin 176 30 - 400 [facility] ng/mL [facility] Comment: Pediatric reference ranges not verified at [facility], interpret with caution. Reference ranges for females greater sim n 50 years of age approach values for men, i.e., 30-400 ng/mL. 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
--- OUTSIDE RECORDS SUMMARY | 2022-03-20 12:37 | XMS_ITS | Encounter Summary ---
:1960 Author Organization [facility] Address [address] [place] [address] Care Team Providers Name Role Phone Unavailable Primary Care Provider Unavailable Encounter Details Date Type Department Care Team Description 09/03/2005 Results Only [facility] - Suzanne Jordan eufemia, Patricia Saavedra, TOOL POLISHER conversion [address] [place] [phone] (Wo rk) Social History Tobacco Use Types Packs/Day Years Used Date Smoking Tobacco: Never Assessed Sex Assigned at Date Recorded Not on file documented as of this encounter Plan of Treatment Not on filedocumented as of this encounter Procedures Procedure Name Priority Date/Time Associated Diagnosis Comme nts CYTOPATHOLOGY Routine 09/03/2005 0:00 EDT Results for this procedure are i n the results section . documented in this encounter Results CYTOPATHOLOGY (09/03/2005 0:00 EDT) Component Value Ref Test Analysis Performed At [facility] Range Method Time Signature Pathology CYTOPATHOLOGY REPORT [facility] Report: [facility] Reports generated via electronic interface contain original data; however they are lacking the format of the original report. Caution should be taken when reading/interpreting unformatte d reports. Name: ? TARSHA MCDERMOTT ? Accession #: ? [id number] : ? 1960 (Age: 45) ??F ?Collect Date: ? 09/03/2005 Location: ? [facility] ? Receive Date: ? 09/04/2005 Provider: ?PATRICIA MCDONALD TOOL POLISHER Copy to: ? Specimen/Source: ? ThinPrep Pap Test, Cervix/Endocervix, processed on [email or web address] ThinPrep Imaging System, with manual evaluation Last Menstrual Period: ? 08/28/05 Other: ? Additional clinical information: 4 & 09/01/04 endometrial cells present in a woman equal to or greater than age 40 HPVA - HPV testing requested if ASC-US on the current ThinPr ep Pap test. ? SPECIMEN ADEQUACY ? Satisfactory for Evaluation - transformation zone component present GENERAL CATEGORIZATION ? Negative for Intraepithelial Lesion or Malignancy ? Document reviewed and electronically signed by: ? OBED Ray(ASCP) ? Report Date: ??09/06/2005 10:47 End of Report Specimen (Source) Anatomical Location Collection Method / Collectio n Time Received Time / Laterality Volume 09/03/2005 09/04/2005 Patricia Mcdonald TOOL POLISHER PATHOLOGY ORDERABLES Performing Organization Address City/State/ZIP Code Phon e Number [facility] [address] [place] [address] SERVICES [facility] [address] [place] [address] documented in this encounter Visit Diagnoses Not on filedocumented in this encounter
--- OUTSIDE RECORDS SUMMARY | 2022-03-20 12:37 | XMS_ITS | Encounter Summary ---
:1960 Author Organization [facility] Address [address] [place] [address] Care Team Providers Name Role Phone Unknown, Provider Primary Care Provider Encounter Details Date Type Department Care Team Description 11/20/2016 Results Only [facility] Patricia Mcdonald, [facility] [phone] [place] [address] [place] [address] (Wo rk) Social History Tobacco Use Types Packs/Day Years Used Date Smoking Tobacco: Never Assessed Sex Assigned at Date Recorded Not on file documented as of this encounter Plan of Treatment Not on filedocumented as of this encounter Procedures Procedure Name Priority Date/Time Associated Diagnosis Comme nts PAP TEST- RESULT Routine 11/20/2016 0:00 EDT Resu lts for this ONLY procedure are i n the results section. documented in this encounter Results PAP TEST- RESULT ONLY (11/20/2016 0:00 EDT) Component Value Ref Test Analysis Performed At [facility] Range Method Time Signature Pathology CYTOPATHOLOGY REPORT [facility] Report: CENTER Reports generated via electronic interface contain origina l data; LABORATORY however they are lacking the format of the original report. SERVICES Caution should be taken when reading/interpreting unformatte d reports. Name: ? TARSHA MCDERMOTT ? Accession #: ? [id number] ? : ? 1960 (Age: [age]) ??F ?Collect Date: ? 11/20/2016 ? Location: ? [facility] ? Receive Date: ? 11/21/2016 ? Provider: PATRICIA MCDONALD UPPERS EDGE BURNISHER Copy to: MICHEAL ROSAS DO ? Final Report SPECIMEN ADEQUACY ? Satisfactory for Evaluation - transformation zone component present GENERAL CATEGORIZATION ? Negative for Intraepithelial Lesion or Malignancy ?? Last Menstrual Period: 2010 Specimen/Source: ??Pap Test, Cervix, ThinPrep Imaging System with manual evaluation Document reviewed and electronically signed by: ? Idalmis Dowd, CT(ASCP) ? Report ??Date: 11/28/2016 13:59 HPV with Pap Test ? Date Ordered: ? 11/28/2016 ? Status: ?? Signed Out ?Date Complete: ? 11/29/2016 ? By: ??System I nterface ? Date Reported: ? 11/29/2016 ? Interpretation RESULT: Negative for HPV. No E6 or E7 mRNA is detected from HPV types 16,18,31,33,35, 39,45,51,52,56,58,59,66, and 68 by physiatrist mediated amplification. Comments Document reviewed and electronically signed by: ? System Interface ? Report date: 11/29/2016 By the signature above, the attending physician certifies th at he/she has personally conducted a gross and/or microscopic examin ation of the described specimens and rendered or confirmed the above diagnosis. End of Report Specimen (Source) Anatomical Location Collection Method / Collectio n Time Received Time / Laterality Volume 11/20/2016 11/21/2016 Patricia Mcdonald UPPERS EDGE BURNISHER PATHOLOGY ORDERABLES Performing Organization Address City/State/ZIP Code Phon e Number [facility] [address] [place], [place] [id number] SERVICES documented in this encounter Visit Diagnoses Not on filedocumented in this encounter Care Teams Printing Screen Assembler Relationship Specialty Start Date End Date Unknown, Provider, PCP - General 03/22/15 documented as of this encounter
--- OUTSIDE RECORDS SUMMARY | 2022-03-20 12:37 | XMS_ITS | Encounter Summary ---
:1960 Author Organization [place] [address] Care Team Providers Name Role Phone Arnaldo Marcus DO Primary Care Provider Reason for Referral Consultation (Routine) - Authorized Specialty Diagnoses / Procedures Referred By Contact Refer red To Contact Diagnoses Elevated ferritin Carrier of hemochromatosis HFE gene mutation Bryan Tse [facility] Alenao stephanie Dickerson [facility] HEMATOLOGY/[place] [address] [place] [address] Referral ID Status Reason Start Date Expiration Visits Visits Date Requested Authorized [id number] Authorized Consult, 06/25/2021 06/25/2022 26 26 Test & Treat Reason for Visit Consultation (Routine) - Authorized Specialty Diagnoses / Procedures Referred By Contact Refer red To Contact Hematology and Diagnoses Hemochromatosis, unspecified Arnaldo Marcus DO [facility] Hem Onc 3k Oncology [address] [facility] [address] [place], [place] [address] [place] [phone] Phone: Fax: Referral ID Status Reason Start Expiration Visits Visits Date Date Requested Authorized [id number] Authorized Consult, 05/25/2021 05/25/2022 6 6 Test & Treat [facility] PCP Updated and/or Approved Encounter Details Date Type Department Care Team Description 06/21/2021 Office Visit Hematology and Guzman Tse MD [facility] Dr HEMATOLOGY/[place] [address] Elevated ferritin; Oncology at [facility] Katerine Clay MD [facility] HEMATOLOGY/[place] [address] Carrier of hemochromatosis HFE gene mutmikaela tikelsy [facility] [place] [address] Social History Tobacco Use Types Packs/Day Years [...] Sign Reading Time Taken Comments Blood Pressure 148/86 06/21/2021 12:47 PM EST Pulse 85 06/21/2021 12:47 PM EST Temperature 36.4 ??C (97.5 ??F) 06/21/2021 12:47 PM EST Respiratory Rate 12 06/21/2021 12:47 PM EST Oxygen Saturation 99% 06/21/2021 12:47 PM EST Inhaled Oxygen Concentration - - Weight 61.6 kg (135 lb 12.8 oz) 06/21/2021 12:47 PM EST Height 153 cm (5' 0.24) 06/21/2021 12:47 PM EST Body Mass Index 26.31 06/21/2021 12:47 PM EST documented in this encounter Progress Notes Katerine Clay MD - 06/21/2021 1:00 PM EST [place] [address] HEMATOLOGY NEW VISIT NOTE DATE OF VISIT: 06/21/21 REASON FOR VISIT: Tarsha Pedraza is a 61 y.o. presents for evaluation of elevated ferritin HISTORY OF PRESENT ILLNESS: Presentation: Tarsha is a 61 y.o. woman with a history of elevated Ferritin and heterozygosity of H63D mutation who presents for consideration of phlebotomies for elevated ferritin. She is known to the Hematology service and was first seen by Dr. Tirado in 02/2018 because of elevated ferritin of 800. Iron 105/TIBC 326/Sat 32% at that time. She denied iron supplementation, prior blood transfusions or known chronic inflammatory conditions. She has a reported FH of hemochromatosis; uncle and 3 cousins have hereditary hemochromatosis. Her uncle has required phlebotomies. She had a trial of quantitative phlebotomies, to goal of <100 ferritin and required 8 sessions toachieve this done q2 weekly but had a significant decline in baseline ferritin after the first 2 sessions. Her last phlebotomy was in 07/2018. Overall, she feels well and denied fatigue, nausea/vomiting, abdominal pain, skin hyperpigmentation or hyperglycemic symptoms Labs from referring M.Stephanie.: Ferritin trend 12/24/2017 1376 (she reports that she was treated for a tick bite around this time) 12/27/2017 1406 01/02/2018 806 02/12/2018 800 04/09/18 590 (phlebotomy started) 04/22/2018 423 (phlebotomy) 05/07/2018 303 (phlebotomy) 05/20/2018 236 (phlebotomy) 06/03/2018 260 (phlebotomy) 06/17/2018 154 (phlebotomy) 06/2018 132 (phlebotomy) 07/15/2018 188 (phlebotomy) 07/29/2018 70 09/09/2018 79 12/12/2018 183 04/04/2019 280 05/23/2021 416 INTERIM HISTORY: As above REVIEW OF SYSTEMS Constitutional --Energy level: Good --Pain: none --Fevers/chills/sweats: No --Unexpected weight loss or gain: No Eyes - No change in vision Ears, nose, throat - No change hearing, no oral or throat pain or thrush Cardiovascular --SOB: No -- Palpitations: No --chest pain: No Respiratory --Cough: No --SOB, MIJARES: She reports episodic dyspnea at rest, no associated chest pain or palpitations, denied dyspnea with exertion Gastrointestinal --Appetite: good --Nausea/vomiting: No - Diarrhea/constipation: No - Abd pain: No Genitourinary --Dysuria or hematuria: No Musculoskeletal --Muscle pain or weakness: No --Joint pain or swelling: No Immune System --Recent infections: No Hematology/Lymph --Bruising/bleeding/melena: No --Enlarged nodes or other masses: No Skin --Rashes or petechiae: No Neuro - No Psych: -Anxiety, depressed mood, suicidal or homicidal ideation : No Other ROS: All negative PROBLEM LIST: Patient Active Problem List Diagnosis ??? Statin intolerance ??? Hyperlipidemia type III Overview Note: type IIb ??? HTN (hypertension) ??? Elevated ferritin MEDICATIONS: Reviewed ALLERGIES: Allergies Allergen Reactions ??? Amoxicillin Trihydrate ??? Lisinopril Other (See Comments) Cough PERSONAL and SOCIAL HISTORY ??? Lives in: [facility] with her , Marcus. They have 2 children ??? 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 ETOH: 2 glasses of wine daily ??? Smoking: Quit 40 years ago ??? HIPPA Contact Permission: Marcus, #[phone] FAMILY HISTORY: Father: in his 70s from multiple complications of alcohol abuse Mother: at the age of 87 from an [place] Has one sister and 2 brothers, no known hematologic disorders PHYSICAL EXAM VITAL SIGNS: Patient Vitals for the past 24 hrs: Temp Pulse Resp BP SpO2 06/21/21 1247 36.4 ??C (97.5 ??F) 85 12 148/86 99 % ECOG PS 0 GENERAL: Tarsha Pedraza is a well-appearing 61 y.o. in no acute distress. HEENT: No mucosal pallor , no scleral icterus; ENDOCRINE: No thyromegaly palpated. CARDIOVASCULAR: Heart with regular rate and rhythm without S3,S4 or murmurs. PULMONARY: Lungs are clear to auscultation without rales, rhonchi or wheezing. GASTROINTESTINAL: Abdomen soft and non-tender without palpable masses or hepatosplenomegaly. MUSCULOSKELETAL: Neck supple with full ROM. No spine or CVA tenderness. SKIN: No rashes, bruises or petechiae. NEUROLOGICAL: Alert and oriented to person, place and time; No focal neurological deficits; EXT: No peripheral edema. PSYCHIATRIC: normal affect and mood LABORATORY: Recent Results (from the past 24 hour(s)) CRP, acute inflammation Result Value Ref Range CRP <3.0 <=4.9 mg/L Ferritin Result Value Ref Range Ferritin 505 (H) 30 - 400 ng/mL Iron and TIBC Result Value Ref Range Iron 69 30 - 150 mcg/dL TIBC 344 250 - 450 mcg/dL Iron Saturation 20 20 - 50 % Comprehensive metabolic panel (non-fasting) Result Value Ref Range Glucose Lvl 110 65 - 199 mg/dL BUN 21 (H) 8 - 18 mg/dL Creatinine 0.88 0.70 - 1.20 mg/dL Sodium 141 135 - 145 mmol/L Potassium 4.2 3.5 - 5.0 mmol/L Chloride 104 98 - 107 mmol/L CO2 25 22 - 31 mmol/L Anion Gap 12 5 - 15 mmol/L Calcium 9.9 8.5 - 10.5 mg/dL Total Protein 7.9 6.1 - 8.0 g/dL Albumin 4.6 3.2 - 5.2 g/dL AST 19 0 - 30 unit/L ALT 30 0 - 30 unit/L Alk Phos 52 35 - 105 unit/L Total Bilirubin 0.7 0.2 - 1.3 mg/dL Estimated GFR 70 >=60 mL/min/1.73 m?? Hemogram Result Value Ref Range WBC 5.7 4.0 - 9.5 x10(3)/mcL RBC 4.57 4.00 - 5.21 x10(6)/mcL Hemoglobin 14.5 11.7 - 15.5 g/dL Hematocrit 43.1 35.7 - 45.8 % MCV 94.3 82.6 - 94.4 fL MCH 31.7 27.1 - 32.0 pg MCHC 33.6 31.7 - 35.0 g/dL Platelets 433 (H) 145 - 357 x10(3)/mcL RDWSD 46.3 (H) 37.0 - 46.0 fL RDWCV 13.3 11.5 - 14.1 % MPV 9.1 7.6 - 12.9 fL nRBC % Auto 0.0 % nRBC Abs Auto 0.000 0.000 - 0.000 x10(3)/mcL Differential, Automated Result Value Ref Range Neutrophils % 48.6 % Neutr Abs (ANC) 2.78 1.70 - 6.10 x10(3)/mcL Lymphocytes % 38.5 % Lymphocytes Abs 2.2 0.9 - 3.2 x10(3)/mcL Monocytes % 8.9 % Monocyte Abs 0.5 0.3 - 0.9 x10(3)/mcL Eosinophils % 2.5 % Eosinophils Abs 0.1 0.0 - 0.4 x10(3)/mcL Basophils % 1.1 % Basophils Abs 0.1 0.0 - 0.1 x10(3)/mcL Immature Gran % 0.40 % Cherie Gran Abs 0.02 0.00 - 0.04 x10(3)/mcL Sedimentation rate Result Value Ref Range Sed Rate 10 2 - 39 mm/hr IMAGING: N/A ASSESSMENT AND PLAN: Tarsha is a 61 y.o. woman with h/o elevated ferritin and heterozygosity for H63D mutation who presents for consideration of phlebotomy given rising trend in ferritin. Her initial finding of ferritin >1000 in 2018 may have been related to an inflammatory reaction given temporal relation to tick bite. She had a ferritin of 800 on initial presentation to the Hematology clinic and after 8 phlebotomies (done q 2 weekly) her ferritin trended below 100. She is currently asymptomatic and while she does have met the criteria for hereditary hemachromatosis we would consider a trial of phlebotomy at this time given her ferritin today of >500. This willbe done q 2 weekly for 2-3 sessions, to maintain ferritin <500. We explained the risk of organ damage increased when the ferritin is >1000. SUMMARY: -Refer to the Blood Donor Program -[facility] x 1 year Plan to be finalized with attending, Dr. Carmencita Clay MD Hematology/Oncology Fellow Pager: [phone] HEMATOLOGY STAFF ADDENDUM: I have independently interviewed and examined this patient and have personally reviewed the relevantclinical, laboratory and radiological data with Dr. Clay,, Hematology Oncology Fellow. Please refer to the comprehensive progress note above, with which I concur, for complete details of our encounter with this patient. I have reviewed and endorse the plan as outlined and have made any additions/corrections below. # Iron overload/ carrier for H63D mutation : Ms. Tarsha Pedraza is a carrier for hemochromatosis gene H63DY. As noted above she saw Dr. Woody the past and underwent 8 therapeutic phlebotomies with ferritin reaching < 100ng/ml. Her last phlebotomy was in 07/2018. She avoid iron supplementation and iron rich foods and does not use cast iron utensils. As expected, her ferritin was slowly increasing since her last phlebotomy, now reaching the level of 505ng/ml. So, it is reasonable to reinitiate phlebotomies. She prefers to have them at [facility]. I placed referral to blood donor program at [facility]. As there is no urgency to unload her iron overload, Q 2-4 weeks phlebotomies which would be more convenient to the patient should be fine. I discussed with Ms. Pedraza that BDP team will manage her phlebotomy frequency and the frequency of lab checksetc and once her ferritin reaches < 100, we can discuss if she wants to switch to maintenance phlebotomies or opt to have ferritin monitored once a year and then reinitiate phlebotomies as needed. The strict goal of ferritin < 100 is for pts with hemochromatosis such as homozygous for C282Y or compound heterozygous (C282Y/H63D) individuals, not for carriers. Pt agreed with this plan. # Thrombocytosis : Platelet count is slightly elevated at 433k. We recommend rechecking CBC in 3 months at [facility] (3L ) and if platelet count is persistently > 450k, then, would do further w/up (JAK2 w/relfex to myeloid gene panel to evaluate for myeloproliferative neoplasm). Pt agreed with this plan. Bryan Tse MD [facility] documented in this encounter Miscellaneous Notes Addendum Note - Bryan Tse MD - 06/21/2021 1:00 PM EST Addended by: BRYAN TSE on: 06/25/2021 03:29 PM Modules accepted: Orders documented in this encounter Plan of Treatment Upcoming Encounters Date Type Specialty Care Team Description 03/28/2022 Appointment 06/20/2022 Appointment Hematology and Oncology 06/20/2022 Office Visit Hematology and Oncology Josiah Tse MD [facility] er HEMATOLOGY/ONCOL MARCUS DEPT. [place], [place] [address] (Wo rk) Scheduled Orders Name Type Priority Associated Diagnoses Order S chedule CBC (with Diff) Lab Routine Elevated ferriti n Expected: Carrier of hemochromatosis 0 06/23/2022 HFE gene mutation (Approxima te), Expires: 2022 Comprehensive metabolic Lab Routine Elevated ferritin Expected: panel (non-fasting) Carrier of hemochroma tosis 06/23/2022 HFE gene mutation (Approxima te), Expires: 2022 Iron and TIBC Lab Routine Elevated ferriti n Expected: Carrier of hemochromatosis 0 06/23/2022 HFE gene mutation (Approxima te), Expires: 2022 CBC (with Diff) Lab Routine Elevated ferriti n Expected: Carrier of hemochromatosis 0 09/22/2021, HFE gene mutation Expires: 0 06/25/2022 Scheduled Referrals Name Type Priority Associated Diagnoses Order S chedule Referral to Blood Outpatient Referral Routine Elevated f erritin Ordered: Donor Carrier of 06/25/2021 Program/Apheresis hemochromatosis HFE gen e Service mutation documented as of this encounter Results Ferritin (08/07/2021 10:30 AM EDT) athologist Signature Ferritin 176 30 - 400 PARRISH KATTY ng/mL [facility] Comment: Pediatric reference ranges not verified at [facility], interpret with caution. Reference ranges for females greater sim n 50 years of age approach values for men, i.e., 30-400 ng/mL. Specimen Anatomical Collection Method Collection Time Receive d Time (Source) Location / / Volume Laterality Blood 08/07/2021 10:30 08/07/2021 AM EDT 10:50 AM EDT Resulting Agency Comment Spec In Lab Bryan Tse MD CHEMISTRY ORDERABLES Performing Organization Address City/[facility]/[place] [address] CRP, acute inflammation (06/21/2021 2:25 PM EST) athologist [facility] CRP <3.0 <=4.9 mg/L [facility] Specimen Anatomical Collection Method Collection Time Receive d Time (Source) Location / / Volume Laterality Blood 06/21/2021 2:25 PM 2:40 EST PM EST Resulting Agency Comment Spec In Lab Bryan Tse MD CHEMISTRY ORDERABLES Performing Organization Address City/State/[facility] [place] [address] (ABNORMAL) Ferritin (06/21/2021 2:25 PM EST) athologist Signature Ferritin 505 (H) 30 - 400 PARRISH KATTY ng/mL [facility] Comment: Pediatric reference ranges not verified at [facility], interpret with caution. Reference ranges for females greater sim n 50 years of age approach values for men, i.e., 30-400 ng/mL. Specimen Anatomical Collection Method Collection Time Receive d Time (Source) Location / / Volume Laterality Blood 06/21/2021 2:25 PM 2 2:40 EST PM EST Resulting Agency Comment Spec In Lab Bryan Tse MD CHEMISTRY ORDERABLES Performing Organization Address City/[facility]/ZIP Code Phon e Number [address] Iron and TIBC (06/21/2021 2:25 PM EST) athologist Signature Iron 69 30 - 150 [facility] mcg/dL [facility] TIBC 344 250 - 450 [facility] mcg/dL [facility] Iron Saturation 20 20 - 50 % [facility] Specimen Anatomical Collection Method Collection Time Receive d Time (Source) Location / / Volume Laterality Blood 06/21/2021 2:25 PM 2 2:40 EST PM EST Resulting Agency Comment Spec In Lab Bryan Tse MD CHEMISTRY ORDERABLES Performing Organization Address City/[facility]/[place] [address] (ABNORMAL) Comprehensive metabolic panel (non-fasting) (06/21/2021 2:25 PM EST) athologist Signature Glucose Lvl 110 65 - 199 [facility] mg/dL [facility] Comment: Diabetes: >=200 mg/dL plus symp toms BUN 21 (H) 8 - 18 mg/dL [facility] Creatinine 0.88 0.70 - 1.20 mg/dL [facility] Sodium 141 135 - 145 mmol/L [facility] Potassium 4.2 3.5 - 5.0 mmol/L [facility] Comment: Please note: ??Patients with WBC >100,00 0 may have falsely elevated Potassium levels. ??For accurate Potassium quantif ication in these patients send serum separator tube (gold top) for subsequent determinations. ??Contact the Clinical Chemistry Laboratory if there are any qu estions. Chloride 104 98 - 107 mmol/L [facility] CO2 25 22 - 31 mmol/L [facility] Anion Gap 12 5 - 15 mmol/L [facility] Calcium 9.9 8.5 - 10.5 mg/dL [facility] Total Protein 7.9 6.1 - 8.0 g/dL [facility] Albumin 4.6 3.2 - 5.2 g/dL [facility] AST 19 0 - 30 unit/L [facility] ALT 30 0 - 30 unit/L [facility] Alk Phos 52 35 - 105 unit/L [facility] Total Bilirubin 0.7 0.2 - 1.3 mg/dL [facility] Estimated GFR 70 >=60 mL/min/1.73 m?? [facility] Comment: This patient? s estimated glomerular filtration rate (eGFR) is between 70 mL/min/1.73 m2 (patients with less muscl e mass) and 81 mL/min/1.73 m2 (patients with more muscle mass) as determined by the CKD-EPI equation. Assessment of eGFR is not appropriate when creatinine concentrations are rapidly changing. For clinical decisions where creatinine clearance will affect therapy, a 24-hour urine creatinine clearance may b e advised. Assignment of CKD stage 1 - 5 for patien ts with an eGFR near the transition point between stages may be based on cli nical assessment of muscle mass and symptoms in addition to eGFR. Specimen Anatomical Collection Method Collection Time Receive d Time (Source) Location / / Volume Laterality Blood 06/21/2021 2:25 PM 2 2:40 EST PM EST Resulting Agency Comment Spec In Lab Bryan Tse MD CHEMISTRY ORDERABLES Performing Organization Address City/State/ZIP [place] [address] documented in this encounter Visit Diagnoses Diagnosis Elevated ferritin Other abnormal blood chemistry Carrier of hemochromatosis HFE gene muta tion documented in this encounter Care Teams Grinder Machine Knife Setter Relationship Specialty Start Date End Date Arnaldo Marcus DO PCP - General Family Medicine 09/11/[address] [place], [place] [address] documented as of this encounter
--- OUTSIDE RECORDS SUMMARY | 2022-03-20 12:37 | XMS_ITS | Encounter Summary ---
:1960 Author Organization [facility] [place] [address] Care Team Providers Name Role Phone Arnaldo Marcus DO Primary Care Provider Encounter Details Date Type Department Care Team Description 03/15/2022 Orders Only Pathology Reagan Olguin MD [facility] [place] [address] PATHOLOGY DEPT [phone] [place], [place] [address] (Wo rk) Social History Tobacco [...] and Oncology Josiah Tse MD [facility] er [facility] [place] [place] [address] (Wo rk) documented as of this encounter Visit Diagnoses Not on filedocumented in this encounter Care Teams Weight Loss Consultant Relationship Specialty Start Date End Date Arnaldo Marcus DO PCP - General Family Medicine 09/11/[address] [place] [address] documented as of this encounter
--- OUTSIDE RECORDS SUMMARY | 2022-03-20 12:37 | XMS_ITS | Encounter Summary ---
:1960 Author Organization [facility] [place] [address] Care Team Providers Name Role Phone Arnaldo Marcus DO Primary Care Provider Reason for Visit Reason Comments Procedure Consultation (Routine) - Authorized Specialty Diagnoses / Procedures Referred By Contact Refer red To Contact Diagnoses Elevated ferritin Carrier of hemochromatosis HFE gene mutation Bryan Tse, [facility] Bloo d Donor Pr[facility] HEMATOLOGY/[place] [address] [place] [address] Referral ID Status Reason Start Date Expiration Visits Visits Date Requested Authorized [id number] Authorized Consult, 06/25/2021 06/25/2022 26 26 Test & Treat Encounter Details Date Type Department Care Team Description 07/06/2021 Hospital Encounter Blood Donor Program at [place] [address] Social History Tobacco Use Types Packs/Day [...] Sign Reading Time Taken Comments Blood Pressure 148/73 07/06/2021 11:09 AM EST Pulse 67 07/06/2021 11:09 AM EST Temperature 36.6 ??C (97.9 ??F) 07/06/2021 11:09 AM EST Respiratory Rate - - Oxygen Saturation - - Inhaled Oxygen Concentration - - Weight 59 kg (130 lb) 07/06/2021 11:09 AM EST Height - - Body Mass Index 25.19 [...] documented as of this encounter Progress Notes Mirtha Boss MD - 07/06/2021 5:23 PM EST Transfusion Medicine Service Therapeutic Phlebotomy Procedure Type: Therapeutic Phlebotomy Requesting Physician: Bryan Tse Date of Procedure: 07/06/2021 Treatment Pathway: Hemochromatosis/Iron Overload Program Frequency of Phlebotomy: Every 2 Weeks Criteria for Performance of Therapeutic Phlebotomy: Hemoglobin greater than 11 g/dL Pre-Collection Hemoglobin value: 14 g/dL Criteria for Therapeutic Phlebotomy Met? Yes Volume Drawn (mL): 230 Volume Replaced (mL): 0 mL 0.9% normal saline Vital Signs: Blood Pressure: 148/73 mmHg Temperature: 36.6 ??C (97.9 ??F) degrees C Pulse: 67 bpm Therapeutic Goal: Ferritin (ng/mL) less than: 100 Frequency of Ferritin Monitoring: Every 3 phlebotomy Ferritin Drawn Today? No Reaction: No PHYSICIAN ASSESSMENT AND PLAN: I have reviewed the procedure note and the patient medical record. This patient requires on-going therapeutic phlebotomy. The current treatment regimen remains appropriate. Recent Labs 06/21/21 1425 FERRITIN 505* MIRTHA BOSS MD 07/06/2021 documented in this encounter Plan of Treatment Upcoming Encounters Date Type Specialty Care Team Description 03/28/2022 Appointment 06/20/2022 Appointment Hematology and Oncology 06/20/2022 Office Visit Hematology and Oncology Josiah Tse MD [facility] HEMATOLOGY/ONCOL NAWAFY DEPT. [place], [place] [address] (Wo rk) Scheduled Referrals Name Type Priority Associated Diagnoses Order S chedule Referral to Blood Outpatient Referral Routine Elevated f erritin Ordered: Donor Carrier of 06/25/2021 Program/Apheresis hemochromatosis HFE gen e Service mutation documented as of this encounter Visit Diagnoses Diagnosis Elevated ferritin level Other abnormal blood chemistry documented in this encounter Care Teams Fuel Truck Driver Relationship Specialty Start Date End Date Arnaldo Marcus DO PCP - General Family Medicine 09/11/[address] [place] [address] documented as of this encounter
--- OUTSIDE RECORDS SUMMARY | 2022-03-20 12:37 | XMS_ITS | Encounter Summary ---
:1960 Author Organization [facility] [place] [address] Care Team Providers Name Role Phone Arnaldo Marcus DO Primary Care Provider Encounter Details Date Type Department Care Team Description 06/21/2021 Hospital Encounter Hematology and Oncology at Elevated ferritin [facility] [place] [address] Social History Tobacco Use Types Packs/Day [...] place to sleep or slept in a long-term (including now)? Sex Assigned at Date Recorded Female 06/20/2021 10:20 AM EST documented as of this encounter Medications at Time of Discharge [...] Once daily documented as of this encounter Plan of Treatment Upcoming Encounters Date Type Specialty Care Team Description 03/28/2022 Appointment 06/20/2022 Appointment Hematology and Oncology 06/20/2022 Office Visit Hematology and Oncology Josiah Tse MD [facility] HEMATOLOGY/ONCOL MARCUS DEPT. [place], [place] [address] (Wo rk) documented as of this encounter Procedures Procedure Name Priority Date/Time Associated Comments Diagnosis HC C-REACTIVE PROTEIN Routine 06/21/2021 2:25 PM Elevated ferr itin Results for this EST procedure are i n the results section. HEMOGRAM Routine 06/21/2021 2:25 PM Elevated ferritin Resu lts for this EST procedure are i n the results section. DIFFERENTIAL, Routine 06/21/2021 2:25 PM Elevated ferritin Res ults for this AUTOMATED EST procedure are i n the results section. HC IRON BINDING Routine 06/21/2021 2:25 PM Elevated ferritin R esults for this CAPACITY EST procedure are i n the results section. SEDIMENTATION RATE Routine 06/21/2021 2:25 PM Res ults for this EST procedure are i n the results section. HC CBC,PLT & AUTO DIFF Routine 06/21/2021 2:25 PM Elevated sydnie ritin EST HC FERRITIN, SERUM Routine 06/21/2021 2:25 PM Elevated ferriti n Results for this EST procedure are i n the results section. COMPREHENSIVE Routine 06/21/2021 2:25 PM Elevated ferritin Res ults for this METABOLIC PANEL EST procedure ar e in (NON-FASTING) the results section. documented in this encounter Results Sedimentation rate (06/21/2021 2:25 PM EST) athologist Signature Sed Rate 10 2 - 39 [facility] mm/hr [facility] Comment: Effective April 22, 2019 new capillar y photometric technology has resulted in a change in reference ranges. It is r ecommended that each ESR result be reviewed with its own age appropriate re ference range. Specimen Anatomical Collection Method Collection Time Receive d Time (Source) Location / / Volume Laterality Blood Venous Draw / 06/21/2021 2:25 PM 06/21/19 22 2:40 Unknown EST PM EST Resulting Agency Comment Spec In Lab Bryan Tse MD HEMATOLOGY ORDERABLES Performing Organization Address City/State/ZIP Code Phon e Number [place] [phone] Differential, Automated (06/21/2021 2:25 PM EST) athologist [facility] Neutrophils % 48.6 % [facility] Neutr Abs (ANC) 2.78 1.70 - [facility] 6.10 [facility] x10(3)/[facility] LABORATORY Lymphocytes % 38.5 % [facility] Lymphocytes Abs 2.2 0.9 - 3.2 [facility] x10(3)/[facility] LABORATORY Monocytes % 8.9 % [facility] Monocyte Abs 0.5 0.3 - 0.9 [facility] x10(3)/[facility] LABORATORY Eosinophils % 2.5 % [facility] Eosinophils Abs 0.1 0.0 - 0.4 [facility] x10(3)/[facility] LABORATORY Basophils % 1.1 % [facility] Basophils Abs 0.1 0.0 - 0.1 [place] x10(3)/[facility] LABORATORY Immature Gran % 0.40 % [facility] Comment: Immature granulocytes(IG's)percentage an d absolute count will include metamyelocytes, myelocytes, and promyelo cytes. Blood smears from CBCs yielding IG's will be scanned manually for concor dance. If this scan disagrees with the automated IG or if promyelocytes are not ed, a manual differential will be performed. [place]rie Gran Abs 0.02 0.00 - 0.04 x10(3)/[facility] MAR Y [facility] Specimen Anatomical Collection Method Collection Time Receive d Time (Source) Location / / Volume Laterality Blood 06/21/2021 2:25 PM 2:40 EST PM EST Resulting Agency Comment Spec In Lab Katerine Clay MD HEMATOLOGY ORDERABLES Performing Organization Address City/State/ZIP [place] [address] (ABNORMAL) Hemogram (06/21/2021 2:25 PM EST) Analysis Performed At Patho logist Time Signature WBC 5.7 4.0 - 9.5 [facility] x10(3)/[facility] LABORATORY RBC 4.57 4.00 - [place] 5.21 [facility] x10(6)/[facility] Hemoglobin 14.5 11.7 - [facility] 15.5 g/dL [facility] Hematocrit 43.1 35.7 - [facility] KATTY 45.8 % [facility] MCV 94.3 82.6 - [facility] 94.4 [facility] LABORATORY MCH 31.7 27.1 - [place] 32.0 pg [facility] MCHC 33.6 31.7 - [facility] 35.0 g/dL [facility] Platelets 433 (H) 145 - 357 [facility] x10(3)/[facility] RDWSD 46.3 (H) 37.0 - [place] 46.0 [facility] LABORATORY RDWCV 13.3 11.5 - [facility] KATTY 14.1 % [facility] LABORATORY MPV 9.1 7.6 - 12.9 [facility] LABORATORY nRBC % Auto 0.0 % [facility] nRBC Abs Auto 0.000 0.000 - [facility] 0.000 [facility] x10(3)/[facility] LABORATORY Specimen Anatomical Collection Method Collection Time Receive d Time (Source) Location / / Volume Laterality Blood 06/21/2021 2:25 PM 2:40 EST PM EST Resulting Agency Comment Spec In Lab Katerine Clay MD HEMATOLOGY ORDERABLES Performing Organization Address City/State/ZIP [place] [address] (ABNORMAL) Comprehensive metabolic panel (non-fasting) (06/21/2021 2:25 PM EST) P athologist Signature Glucose Lvl 110 65 - 199 [facility] mg/dL [facility] Comment: Diabetes: >=200 mg/dL plus symp toms BUN 21 (H) 8 - 18 mg/dL [facility] Creatinine 0.88 0.70 - 1.20 mg/dL [facility] Sodium 141 135 - 145 mmol/L [facility] Potassium 4.2 3.5 - 5.0 mmol/L [facility] Comment: Please note: ??Patients with WBC >100,00 0 may have falsely elevated Potassium levels. ??For accurate Potassium quantif ication in these patients send serum separator tube (gold top) for subsequent determinations. ??Contact the Clinical Chemistry Laboratory if there are any qu estions. Chloride 104 98 - 107 mmol/L [facility] CO2 25 22 - 31 mmol/L [facility] Anion Gap 12 5 - 15 mmol/L [facility] Calcium 9.9 8.5 - 10.5 mg/dL [facility] Total Protein 7.9 6.1 - 8.0 g/dL [facility] Albumin 4.6 3.2 - 5.2 g/dL [facility] AST 19 0 - 30 unit/L [facility] ALT 30 0 - 30 unit/L [facility] Alk Phos 52 35 - 105 unit/L [facility] Total Bilirubin 0.7 0.2 - 1.3 mg/dL [facility] Estimated GFR 70 >=60 mL/min/1.73 m?? [facility] Comment: This patient? s estimated glomerular [...] Organization Address City/State/ZIP Code Phon e Number [address] Iron and TIBC (06/21/2021 2:25 PM EST) P athologist Signature Iron 69 30 - 150 [facility] mcg/dL [facility] TIBC 344 250 - 450 [facility] mcg/dL [facility] Iron Saturation 20 20 - 50 % [facility] Specimen Anatomical Collection Method Collection Time Receive d Time (Source) Location / / Volume Laterality Blood 06/21/2021 2:25 PM 2 2:40 EST PM EST Resulting Agency Comment Spec In Lab Bryan Tse MD CHEMISTRY ORDERABLES Performing Organization Address City/State/ZIP Code Phon e Number [address] (ABNORMAL) Ferritin (06/21/2021 2:25 PM EST) athologist Signature Ferritin 505 (H) 30 - 400 [facility] ng/mL [facility] Comment: Pediatric reference ranges not verified at [facility], interpret with caution. Reference ranges for females [...] Organization Address City/State/[place] [address] CRP, acute inflammation (06/21/2021 2:25 PM EST) athologist Signature CRP <3.0 <=4.9 mg/L [facility] Specimen Anatomical Collection Method Collection Time Receive d Time (Source) Location / / Volume Laterality Blood 06/21/2021 2:25 PM 2 2:40 EST PM EST Resulting Agency Comment Spec In Lab Bryan Tse MD CHEMISTRY ORDERABLES Performing Organization Address City/[facility]/[place]IP [place] [address] documented in this encounter Visit Diagnoses Diagnosis Elevated ferritin Other abnormal blood chemistry documented in this encounter Care Teams Chief Librarian Circulation Department Relationship Specialty Start Date End Date Arnaldo Marcus DO PCP - General Family Medicine 09/11/[address] [place] [address] documented as of this encounter
--- OUTSIDE RECORDS SUMMARY | 2022-03-20 12:37 | XMS_ITS | Encounter Summary ---
:1960 Author Organization [facility] Address [address] [place] [address] Care Team Providers Name Role Phone Amrit Arnaldo COBURN Primary Care Provider Reason for Visit Reason Onset Date Comments Questions 11/22/2020 new Mail [place] pharmacy? Encounter Details Date Type Department Care Team Description 11/22/2020 Refill Cardiology at [facility] Kelli Landin RN Questions (new Mail Order [facility] ([place]) pharmacy[place] [address] Social History Tobacco Use Types Packs/Day [...] place to sleep or slept in a halfway (including now)? Sex Assigned at Date Recorded Female 06/20/2021 10:20 AM EST documented as of this encounter Miscellaneous Notes Telephone Encounter - Kelli Landin RN - 11/23/2020 10:22 AM EDT Pt contacted and confirmed that she is using a new Mail order pharmacy, [facility]. She will no longer be using [facility]. Prescriptions for Crestor and Zetia pended to Dr Mora Telephone Encounter - Kelli Landin RN - 11/22/2020 2:33 PM EDT Faxed request received from [facility] to refill Crestor. Last filled through [facility]. Call placed tot he home number listed, message left for the pt to call back to confirm the [place] pharmacy change and to ask if she will need to get the Zetia from the new pharmacy as wel. Awaiting a call back. documented in this encounter Plan of Treatment Upcoming Encounters Date Type Specialty Care Team Description 03/28/2022 Appointment 06/20/2022 Appointment Hematology and Oncology 06/20/2022 Office Visit Hematology and Oncology Josiah Tse MD [facility] HEMATOLOGY/ONCOL MARCUS DEPT. [place], [place] [address] (Wo rk) documented as of this encounter Visit Diagnoses Diagnosis Familial hypercholesterolemia Pure hypercholesterolemia documented in this encounter Care Teams Field Clinical Engineer Relationship Specialty Start Date End Date Arnaldo Marcus DO PCP - General Family Medicine 09/11/[address] [place] [address] documented as of this encounter
--- OUTSIDE RECORDS SUMMARY | 2022-03-20 12:37 | XMS_ITS | Encounter Summary ---
:1960 Author Organization [facility] [place] [address] Care Team Providers Name Role Phone Arnaldo Marcus DO Primary Care Provider Encounter Details Date Type Department Care Team Description 10/09/2019 Telephone Cardiology at [facility] Daley, [facility] [place] [address] Social History Tobacco Use Types Packs/Day [...] this encounter Miscellaneous Notes Telephone Encounter - Mayi Daley RN - 10/09/2019 11:05 AM EDT External lab results documented in this encounter Plan of Treatment Upcoming Encounters Date Type Specialty Care Team Description 03/28/2022 Appointment 06/20/2022 Appointment Hematology and Oncology 06/20/2022 Office Visit Hematology and Oncology [facility] DEPT. [place], [place] [address] (Wo rk) documented as of this encounter Procedures Procedure Name Priority Date/Time Associated Comments Diagnosis LIPID PANEL (NO REFLEX) Routine 09/29/2019 9:31 R esults for this AM EDT procedure are i n the results section. LIPOPROTEIN A Routine 09/29/2019 9:31 Results for this AM EDT procedure are i n the results section. ALANINE AMINOTRANSFERASE Routine 09/29/2019 9:31 Results for this AM EDT procedure are i n the results section. TSH Routine 09/29/2019 9:31 Results for this AM EDT procedure are i n the results section. documented in this encounter Results Alanine Aminotransferase (09/29/2019 9:31 AM EDT) P athologist Signature ALT 48 EXTERNAL LAB Specimen (Source) Anatomical Collection Method Collection Time Re ceived Time Location / / Volume Laterality Blood specimen 09/29/2019 9:31 AM (specimen) EDT Historical Provider CHEMISTRY ORDERABLES Performing Organization Address City/State/ZIP Code Phon e Number EXTERNAL FACILITY EXTERNAL LAB TSH (09/29/2019 9:31 AM EDT) P athologist Signature TSH 0.56 EXTERNAL LAB Specimen (Source) Anatomical Collection Method Collection Time Re ceived Time Location / / Volume Laterality Blood specimen 09/29/2019 9:31 AM (specimen) EDT Historical Provider MD CHEMISTRY ORDERABLES Performing Organization Address City/State/ZIP Code Phon e Number EXTERNAL FACILITY EXTERNAL LAB Lipoprotein A (09/29/2019 9:31 AM EDT) P athologist Signature Lipoprotein (a) 8 EXTERNAL LAB Specimen (Source) Anatomical Collection Method Collection Time Re ceived Time Location / / Volume Laterality Blood specimen 09/29/2019 9:31 AM (specimen) EDT Historical Provider MD CHEMISTRY ORDERABLES Performing Organization Address City/State/ZIP Code Phon e Number EXTERNAL FACILITY EXTERNAL LAB (ABNORMAL) Lipid Panel (No Reflex) (09/29/2019 9:31 AM EDT) P athologist Signature Chol, Total 215 EXTERNAL LAB Triglycerides 130 EXTERNAL LAB HDL 66 EXTERNAL LAB LDL Cholesterol 123 EXTERNAL LAB Glucose Lvl 108 EXTERNAL LAB Specimen (Source) Anatomical Collection Method Collection Time Re ceived Time Location / / Volume Laterality Blood specimen 09/29/2019 9:31 AM (specimen) EDT Historical Provider MD CHEMISTRY ORDERABLES Performing Organization Address City/State/ZIP Code Phon e Number EXTERNAL FACILITY EXTERNAL LAB documented in this encounter Visit Diagnoses Not on filedocumented in this encounter Care Teams Medical Dir Relationship Specialty Start Date End Date Arnaldo Marcus DO PCP - General Family Medicine 09/11/[address] [place] [address] documented as of this encounter
--- OUTSIDE RECORDS SUMMARY | 2022-03-20 12:37 | XMS_ITS | Encounter Summary ---
:1960 Author Organization [facility] [place] [address] Care Team Providers Name Role Phone Arnaldo Marcus DO Primary Care Provider Reason for Visit Reason Comments Procedure Consultation (Routine) - Authorized Specialty Diagnoses / Procedures Referred By Contact Refer red To Contact Diagnoses Elevated ferritin Carrier of hemochromatosis HFE gene mutation Bryan Tse [facility] Bloo d Donor [facility] [place]EMATOLOGY/[place] [address] [place] [address] Referral ID Status Reason Start Date Expiration Visits Visits Date Requested Authorized [id number] Authorized Consult, 06/25/2021 06/25/2022 26 26 Test & Treat Encounter Details Date Type Department Care Team Description 01/26/2022 Hospital Encounter [place] [address] Social History Tobacco Use Types Packs/Day [...] ??F) 01/26/2022 11:34 AM EDT Respiratory Rate - - Oxygen Saturation - - Inhaled Oxygen Concentration - - Weight 59 kg (130 lb) 01/26/2022 11:34 AM EDT Height 152.4 cm (5') 01/26/2022 11:34 AM EDT Body Mass Index 25.39 01/26/2022 11:34 AM EDT documented in this encounter Medications [...] encounter Progress Notes Tam Ramirez MD - 01/26/2022 8:42 AM EDTSummary: TP Note Transfusion Medicine Service Therapeutic Phlebotomy Procedure Type: Therapeutic Phlebotomy Requesting Physician: Bryan Tse Date of Procedure: 01/26/2022 Treatment Pathway: Hemochromatosis/Iron Overload Program Frequency of Phlebotomy: Every 2 Months Criteria for Performance of Therapeutic Phlebotomy: Hemoglobin greater than 11 g/dL Pre-Collection Hemoglobin value: 15 g/dL Criteria for Therapeutic Phlebotomy Met? Yes Volume Drawn (mL): 500 Volume Replaced (mL): 0 mL 0.9% normal saline Vital Signs: Blood Pressure: 143/78 mmHg Temperature: 36.2 ??C (97.1 ??F) degrees C Pulse: 74 bpm Therapeutic Goal: Ferritin (ng/mL) less than: 100 Frequency of Ferritin Monitoring: Every phlebotomy Ferritin Drawn Today? Yes Reaction: No Comments: (Pt was stuck 3 times with 17g needles. May need to consider IV team for her future TP draws due to her small veins. Discussed with pt.) PHYSICIAN ASSESSMENT AND PLAN: I have reviewed the procedure note and the patient medical record. 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 The current treatment regimen remains appropriate. Recent Labs 01/26/22 1230 11/28/21 1045 09/26/21 1109 08/07/21 1030 06/21/21 1425 FERRITIN 65 65 51 176 505* Grzegorz Marcus DO 01/26/2022 ATTENDING REVIEW: I have reviewed the procedure note and the patient medical record. This patient requires on-going therapeutic phlebotomy. I agree with the plan as outlined by . TAM RAMIREZ MD 01/26/2022 documented in this encounter Miscellaneous Notes Addendum Note - Tam Ramirez M, MD - 01/26/2022 5:38 PM EDT Encounter addended by: Tam Ramirez MD on: 01/26/2022 5:38 PM Actions taken: Clinical Note Signed documented in this encounter Plan of Treatment Upcoming Encounters Date Type Specialty Care Team Description 03/28/2022 Appointment 06/20/2022 Appointment Hematology and Oncology 06/20/2022 Office Visit Hematology and Oncology Josiah Tse MD [facility] HEMATOLOGY/ONCOL MARCUS DEPT. [place], [place] [address] (Wo rk) documented as of this encounter Procedures Procedure Name Priority Date/Time Associated Diagnosis Comme nts HC FERRITIN, SERUM Routine 01/26/2022 12:30 PM Re sults for this EDT procedure are i n the results section. documented in this encounter Results Ferritin (01/26/2022 12:30 PM EDT) athologist Signature Ferritin 65 30 - 400 [facility] ng/mL [place] [facility] Comment: Pediatric reference ranges not verified at [facility], interpret with caution. Reference ranges for females greater sim n 50 years of age approach values for men, i.e., 30-400 ng/mL. Specimen Anatomical Collection Method Collection Time Receive d Time (Source) Location / / Volume Laterality Blood 01/26/2022 12:30 01/26/2022 PM EDT 12:30 PM EDT Resulting Agency Comment Spec In Lab Tam Ramirez MD CHEMISTRY ORDERABLES Performing Organization Address City/State/[place] [address] documented in this encounter Visit Diagnoses Diagnosis Elevated ferritin Other abnormal blood chemistry documented in this encounter Care Teams Terminal Supervisor Relationship Specialty Start Date End Date Arnaldo Marcus DO PCP - General Family Medicine 09/11/[address] [place] [address] documented as of this encounter
--- OUTSIDE RECORDS SUMMARY | 2022-03-20 12:38 | XMS_ITS | Encounter Summary ---
:1960 Author Organization [facility] Address [facility] [place] [address] Care Team Providers Name Role Phone Jaden JARA MD, Hemal Ricardo Primary Care Provider [phone] Encounter Details Date Type Department Care Team Description 05/29/2018 Office Visit Hematology/Oncology at Daniel Tirado MD Elevated ferritin [facility] [address] [place], [place] HEMATOLOGY/ONCOLOGY [address] DEPT. [phone] [place], [place] [address] (Wo rk) Social History Tobacco Use Types Packs/Day Years Used Date Never Assessed Financial Resource Strain Answer Date Recorded How [...] place to sleep or slept in a [facility] (including now)? Sex Assigned at Date Recorded Female 06/20/2021 10:20 AM EST documented as of this encounter Last Filed Vital Signs Vital Sign Reading Time Taken Comments Blood Pressure 169/89 05/29/2018 10:49 AM EST Pulse 88 05/29/2018 10:49 AM EST Temperature 36.3 ??C (97.3 ??F) 05/29/2018 10:49 AM EST Respiratory Rate 18 05/29/2018 10:49 AM EST Oxygen Saturation 100% 05/29/2018 10:49 AM EST Inhaled Oxygen Concentration - - Weight 59.9 kg (132 lb) 05/29/2018 10:49 AM EST Height 154 cm (5' 0.63) 05/29/2018 10:49 AM EST copied Body Mass Index 25.25 05/29/2018 10:49 AM EST documented in this encounter Progress Notes Daniel Tirado MD - 05/29/2018 10:30 AM EST The patient is a 58-year-old female who returns to clinic. Elevated ferritin. 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 She has now had 4 phlebotomies and her ferritin has decreased quite a bit. This suggests that she did not have true iron overload. I still recommended that she complete her course of phlebotomy until her ferritin is less than 100. The phlebotomy should then be stopped. I would like to see her back in about 3 months after that witha repeat CBC and a ferritin to be sure she has not reaccumulated any significant iron. The patient is in agreement with the plan. very 2 weeks until her ferritin is less than 100. I would like to see her back in about 2 months to see how things are proceeding. documented in this encounter Plan of Treatment Upcoming Encounters Date Type Specialty Care Team Description 03/28/2022 Appointment 06/20/2022 Appointment Hematology and Oncology 06/20/2022 Office Visit Hematology and Oncology Josiah Tse MD [facility] [place] [address] (Wo rk) documented as of this encounter Procedures Procedure Name Priority Date/Time Associated Diagnosis Comme nts LAB SCAN 05/20/2018 12:00 AM Results for this EST procedure are i n the results section . documented in this encounter Results SCAN DOC: LAB (05/20/2018 12:00 AM EST) Narrative 05/20/2018 12:00 AM EST This result has an attachment that is no t available. Ordered by an unspecified provider. Scanning Provider MEDIA MGR SCAN EXT ORDR/RSLT documented in this encounter Visit Diagnoses Diagnosis Elevated ferritin Other abnormal blood chemistry documented in this encounter Care Teams Bankman Relationship Specialty Start Date End Date Hemal Stanley III, MD PCP - General 04/04/10 09/10/18 [address] [place] [address] documented as of this encounter
--- OUTSIDE RECORDS SUMMARY | 2022-03-20 12:38 | XMS_ITS | Encounter Summary ---
:1960 Author Organization [facility] Address [address] [place] [address] Care Team Providers Name Role Phone Jaden JARA MD, Hemal Ricardo Primary Care Provider [phone] Encounter Details Date Type Department Care Team Description 03/27/2018 Office Visit Hematology/Oncology Susan Tirado MD Elevated ferritin at [facility] level [address] [place], [place] HEMATOLOGY/ONCOLOG [address] Y DEPT. [phone] [place], [place] [address] Social History Tobacco Use Types [...] place to sleep or slept in a [place] (including now)? Sex Assigned at Date Recorded Female 06/20/2021 10:20 AM EST documented as of this encounter Last Filed Vital Signs Vital Sign Reading Time Taken Comments Blood Pressure 187/89 03/27/2018 1:18 PM EST Pulse 110 03/27/2018 1:18 PM EST Temperature 36.8 ??C (98.2 ??F) 03/27/2018 1:18 PM EST Respiratory Rate 16 03/27/2018 1:18 PM EST Oxygen Saturation 100% 03/27/2018 1:18 PM EST Inhaled Oxygen Concentration - - Weight 63.6 kg (140 lb 3.2 oz) 03/27/2018 1:18 PM EST Height 154 cm (5' 0.63) 03/27/2018 1:18 PM EST copied Body Mass Index 26.81 03/27/2018 1:18 PM EST documented in this encounter Progress Notes Daniel Tirado MD - 03/27/2018 1:00 PM EST The patient is a 58-year-old female who returns to clinic. I originally saw her on 03/06/18 in evaluation for an elevated ferritin. She returns to go over her laboratory results. She feels well. No new changes. Her HFE mutation test returned showing one copy of the H63D mutation but no C282Y mutation. Her LFTs were normal Impression 58-year-old female who is a carrier for a single low risk allele for hereditary hemochromatosis. This is a very common phenotype and most patients do not have true iron overload. However some 2-4% of patients with true iron overload do have this genotype. I still recommended a course of quantitative phlebotomy. This should allow us to assess how much iron is truly present as well as get her into an iron unloaded state. She is willing to proceed. We will plan a phlebotomy for 500 cc every 2 weeks. We will hold it if her hemoglobin is below 11.5.We will continue every 2 weeks until her ferritin is less than 100. I would like to see her back in about 2 months to see how things are proceeding. documented in this encounter Plan of Treatment Upcoming Encounters Date Type Specialty Care Team Description 03/28/2022 Appointment 06/20/2022 Appointment Hematology and Oncology 06/20/2022 Office Visit Hematology and Oncology Josiah Tse MD [facility] [place] [address] (Wo rk) documented as of this encounter Procedures Procedure Name Priority Date/Time Associated Diagnosis Comme nts LAB SCAN 05/07/2018 12:00 AM Results for this EST procedure are i n the results section. CHEMOTHERAPY SCAN 03/27/2018 12:00 AM Res ults for this EST procedure are i n the results section. documented in this encounter Results SCAN DOC: LAB (05/07/2018 12:00 AM EST) Narrative 05/07/2018 12:00 AM EST This result has an attachment that is no t available. Ordered by an unspecified provider. Scanning Provider MEDIA MGR SCAN EXT ORDR/RSLT SCAN DOC: CHEMOTHERAPY (03/27/2018 12:00 AM EST) Narrative 03/27/2018 12:00 AM EST This result has an attachment that is no t available. Ordered by an unspecified provider. Scanning Provider MEDIA MGR SCAN EXT ORDR/RSLT documented in this encounter Visit Diagnoses Diagnosis Elevated ferritin level Other abnormal blood chemistry documented in this encounter Care Teams Plate Stacker Hand Relationship Specialty Start Date End Date Hemal Stanley III, MD PCP - General 04/04/10 09/10/18 [address] [place] [address] documented as of this encounter
--- OUTSIDE RECORDS SUMMARY | 2022-03-20 12:38 | XMS_ITS | Encounter Summary ---
:1960 Author Organization [facility] [place] [address] Care Team Providers Name Role Phone Jaden JARA MD, Hemal Ricardo Primary Care Provider [phone] Reason for Visit Reason Onset Date Comments Questions 07/30/2018 Encounter Details Date Type Department Care Team Description 07/30/2018 [facility] JORJE [address] [place] [phone] Social History Tobacco Use Types Packs/Day Years [...] place to sleep or slept in a care home (including now)? Sex Assigned at Date Recorded Female 06/20/2021 10:20 AM EST documented as of this encounter Miscellaneous Notes Telephone Encounter - Jm Hood RN - 07/30/2018 1:42 PM EDT Rosio RECINOS from [facility] called reporting Tarsha Pedraza has been doing every 2 week labs with phlebotomy as needed. They have achieved Ferritin of 70 today so Pt does not require phlebotomy. Wanting to know if they need to continue checking labs. Reviewed with Dr Tirado who reports Pt can stop phlebotomy and will be seen back for FUV on 09/18/18, with CBC and Ferritin prior. Rosio updated and will update Pt with plan. documented in this encounter Plan of Treatment Upcoming Encounters Date Type Specialty Care Team Description 03/28/2022 Appointment 06/20/2022 Appointment Hematology and Oncology 06/20/2022 Office Visit Hematology and Oncology Josiah Tse MD [facility] HEMATOLOGY/ONCOL MARCUS DEPT. [place], [place] [address] (Wo rk) documented as of this encounter Visit Diagnoses Not on filedocumented in this encounter Care Teams Benefits Advisor Relationship Specialty Start Date End Date Hemal Stanley III, MD PCP - General 04/04/10 09/10/18 [address] [place] [address] documented as of this encounter
--- OUTSIDE RECORDS SUMMARY | 2022-03-20 12:38 | XMS_ITS | Encounter Summary ---
:1960 Author Organization [place] [address] Care Team Providers Name Role Phone Jaden JARA MD, Hemal Ricardo Primary Care Provider [phone] Reason for Visit Consultation (Routine) - Specialty Diagnoses / Procedures Referred By Contact Refer red To Contact Hematology and Diagnoses Other specified abnormal findings of blood chemistry ELEVATED FERRITIN Arnaldo Marcus DO [facility] Hem Onc Office Oncology [address] [phone] Fax: Referral ID Status Reason Start Date Expiration Date Visits V isits Requested Authorized [id number] Consult, Test 02/14/2018 02/14/2019 [facility] PCP Updated and/or Approved Encounter Details Date Type Department Care Team Description 03/06/2018 Office Visit Hematology/Oncology Susan Tirado MD Elevated ferritin at [facility] level [address] [place], [place] HEMATOLOGY/ONCOLOG [address] Y DEPT. [phone] [place], [place] [address] Social History Tobacco Use Types [...] place to sleep or slept in a nursing home (including now)? Sex Assigned at Date Recorded Female 06/20/2021 10:20 AM EST documented as of this encounter Last Filed Vital Signs Vital Sign Reading Time Taken Comments Blood Pressure 175/83 03/06/2018 1:28 PM EDT Pulse 100 03/06/2018 1:28 PM EDT Temperature 36.8 ??C (98.2 ??F) 03/06/2018 1:28 PM EDT Respiratory Rate 16 03/06/2018 1:28 PM EDT Oxygen Saturation 100% 03/06/2018 1:28 PM EDT Inhaled Oxygen Concentration - - Weight 63.5 kg (140 lb) 03/06/2018 1:28 PM EDT Height 154 cm (5' 0.63) 03/06/2018 1:28 PM actual, no shoes EDT Body Mass Index 26.78 03/06/2018 1:28 PM EDT documented in this encounter Progress Notes Meenu Atwood, RN - 03/06/2018 1:30 PM EDT MEDICAL ONCOLOGY INITIAL NURSING ASSESSMENT ADVANCE DIRECTIVES: In [facility]H [ ] Has documents [x ] Will bring in [ ] Filed at [facility] IF NO: Advance Directive pamphlet provided : Referral to Care Management : PRESENTING SYSTEMS and PATHOLOGY: as per Dr. Tirado REVIEW OF SYSTEMS: as per Dr. Tirado Prior Radiotherapy: no[ x ] Yes[ ]Site Date Facility Prior Chemotherapy: no[ x ] Yes[ ] Drug: Oncologist- LastTreatment: NO: YES: Claustrophobia or requires sedation for MRIs x Allergy to CT or MRI contrast agent or iodine or shellfish x Diabetic and on metformin x Metal in body, implanted device, worked with metal, body piercings,braces x Dentures or hearing device x Pacemaker x Difficulty breathing while lying flat x Kidney problems/creatinine x Balance difficulty: [x ]no [ ]yes At risk for fall: [x ] no [ ] yes If yes, actions implemented to prevent fall. Patient/family instructed to avoid independent ambulation. Use wheelchair and ask for assistance of staff while in the clinic. ADL [ x ] no limits [ ] needs dressing assistance [ ] needs meal assistance Assistive device:[ x ]none [ ]cane [ ]walker [ ]wheelchair [ ]other: explain PAIN ASSESSMENT: [o ] out of 10 Location: Description: [ ] Dull [ ] Sharp [ ] Burning [ ] Throbbing [ ] Radiating [ ] Continuous [ ]Intermittent Aggravating Factors: [ ] Movement [ ] Position [ ]Immobility [ ]Other Alleviating Factors: [ ]Medication [ ] Positioning [ ] Other Current Pain Management Plan: [ ]Satisfied [ ] Not satisfied SOCIAL ASSESSMENT: See [facility] social assessment information entered. Support Systems: transportation plan: [x ]private vehicle [ ] RCT needs Social Work referral [ ] Unknown at this time needs Social Work referral Barriers to treatment: Referrals/Interventions: LEARNING STYLE: Visual and verbal, wants written material and verbal discussion. TEACHING: __ NCI ???Chemotherapy and You?? and folder given __ Specific chemotherapy literature provided and reviewed with patient Daniel Tirado MD - 03/06/2018 1:30 PM EDT Subjective: Patient ID: Tarsha Pedraza is a 57 y.o. female. HPI The patient is a 57-year-old female referred by Dr. Marcus for consultation regarding elevated ferritin. The patient is seen in the [facility]. She lives in the area. 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 She is referred to us for consultation and management regarding her elevated ferritin. Of note clinically she is well. She did have a bad summer last year. Had a lot of symptoms. Apparently ultimately it was decided that her Crestor was causing most of the problems. She stopped it. Most of her symptoms have settled down and she is feeling pretty much back to normal. It is unclear why she had her ferritin checked but in December 2017 her ferritin was 05/16/2005. On repeat a week later it was 806. Most recently on 02/12/18 her ferritin was 800. Her iron was 105 with a TIBC of 326 giving a saturation of 32%. She was able to show me a ferritin test from September 2010 that was mildly elevated at 368. Her uncle was diagnosed with hereditary hemochromatosis and has undergone phlebotomy. She tells me that 3 of her cousins have also been diagnosed. There is no family history of early liver disease. Her father did in his 70s of multiple complications of alcohol use. Her mother is alive. She does have one sister and 2 brothers who are fine. Menarche was at age 14 and menopause was age 48. She never took iron supplementation. No history of blood transfusions. No history of blood donation. Past medical history Hypothyroidism Hypertension Elevated cholesterol Current Outpatient Medications: ??? amLODIPine (NORVASC) 5 mg Tablet, Take 5 mg by mouth nightly., Disp: , Rfl: ??? losartan (COZAAR) 50 mg tablet, 50mg, PO, Twice daily (Patient taking differently: 100 mg PO daily), Disp: , Rfl: ??? levothyroxine (SYNTHROID) 88 mcg tablet, 88MCG = 1 Tablet(s), PO, Once daily, Disp: , Rfl: ??? CIS Free Text Med - Albuterol, 2 Puff(s), Inh, Four times daily PRN (Patient not taking: No sig reported), Disp: , Rfl: ??? ipratropium (ATROVENT) 0.03 % nasal spray, 21MC-2 Albertson(s)each nostril , Nasal, Three times daily PRN (Patient not taking: No sig reported), Disp: , Rfl: ??? zolpidem (AMBIEN) 10 mg tablet, 10m/2 to 1 Tablet(s), PO, QHS PRN (Patient not taking: No sig reported), Disp: , Rfl: Allergies Allergen Reactions ??? Amoxicillin Trihydrate ??? 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 Occasional alcohol No tobacco Family history Mother okrosanne Father at 74 Hemachromatosis and uncle and cousins One sister and 2 brothers 2 children Review of Systems Constitutional: Negative for fatigue, fever and unexpected weight change. HENT: Negative for nosebleeds. Respiratory: Negative for cough and shortness of breath. Cardiovascular: Negative for chest pain and palpitations. Gastrointestinal: Negative for abdominal pain and diarrhea. Musculoskeletal: Negative for back pain. Skin: Negative for rash. Neurological: Negative for speech difficulty. Hematological: Negative for adenopathy. Does not bruise/bleed easily. All other systems reviewed and are negative. Objective: Physical Exam Constitutional: She is oriented to person, place, and time. She appears well- nourished. No distress. HENT: Mouth/Throat: No oropharyngeal exudate. Eyes: No scleral icterus. Cardiovascular: Normal rate, regular rhythm and normal heart sounds. Pulmonary/Chest: Effort normal and breath sounds normal. She has no wheezes. Abdominal: Soft. Bowel sounds are normal. She exhibits no mass. There is no tenderness. Musculoskeletal: She exhibits no edema. Lymphadenopathy: She has no cervical adenopathy. Neurological: She is alert and oriented to person, place, and time. Skin: No rash noted. Most recent ferritin from 02/12/18 was 800 Most recent CBC from 12/24/17 White count 5.6, hemoglobin 14.4, platelets 391 I do not have any report of LFTs Assessment and Plan: 57-year-old female who has a family history of hereditary hemochromatosis and has a significantly elevated ferritin. Her ferritin was only mildly elevated in 2010 but has increased substantially since then. This could be compatible with iron accumulation after her menopause once her menstrual periods stopped. I am suspicious that she has true iron overload but think we will need to have some additional studies. I would like to see her LFTs so we will send a CMP. It would be important to know her hereditary gene profile so we will send in HFE gene mutation study. If she is homozygous positive for mutations I would be convinced that she does have hereditary hemochromatosis and would recommend phlebotomy. We would also recommend organ evaluation with ultrasound of her liver and echocardiogram since both liver and heart can have significant organ toxicity with iron overload. If she is not homozygous we will probably need to do additional studies to determine if she is trulyiron overloaded. An MRI scan of her liver might be reasonable. I also sometimes consider quantitative phlebotomy to assess exactly how much iron is stored in her body. I will see her back in 3 weeks to go over the results of her liver tests as well as her HFE mutationstudy. We will make further decisions after that. documented in this encounter Plan of Treatment Upcoming Encounters Date Type Specialty Care Team Description 03/28/2022 Appointment 06/20/2022 Appointment Hematology and Oncology 06/20/2022 Office Visit Hematology and Oncology Josiah Tse MD [facility] HEMATOLOGY/ONCOL MARCUS DEPT. [place], [place] [address] (Wo rk) documented as of this encounter Visit Diagnoses Diagnosis Elevated ferritin level Other abnormal blood chemistry documented in this encounter Care Teams Senior Lead Project Manager Relationship Specialty Start Date End Date Hemal Stanley III, MD PCP - General 04/04/10 09/10/18 [address] [place] [address] documented as of this encounter
--- OUTSIDE RECORDS SUMMARY | 2022-03-20 12:38 | XMS_ITS | Encounter Summary ---
:1960 Author Organization [facility] Address [address] [place] [address] Care Team Providers Name Role Phone Arnaldo Marcus DO Primary Care Provider Encounter Details Date Type Department Care Team Description 09/11/2018 Office Visit Hematology/Oncology at Daniel Tirado MD Elevated ferritin [facility] [address] [place], [place] HEMATOLOGY/ONCOLOGY [address] DEPT. [phone] [place], [place] [address] (Wo rk) Social History Tobacco [...] place to sleep or slept in a skilled nursing (including now)? Sex Assigned at Date Recorded Female 06/20/2021 10:20 AM EST documented as of this encounter Last Filed Vital Signs Vital Sign Reading Time Taken Comments Blood Pressure 169/89 09/11/2018 3:49 PM EDT Pulse 96 09/11/2018 3:49 PM EDT Temperature 36.8 ??C (98.2 ??F) 09/11/2018 3:49 PM EDT Respiratory Rate 16 09/11/2018 3:49 PM EDT Oxygen Saturation 100% 09/11/2018 3:49 PM EDT Inhaled Oxygen Concentration - - Weight 63 kg (139 lb) 09/11/2018 3:49 PM EDT Height 154 cm (5' 0.63) 09/11/2018 3:49 PM EDT copied Body Mass Index 26.59 09/11/2018 3:49 PM EDT documented in this encounter Progress Notes Daniel Tirado MD - 09/11/2018 3:30 PM EDT The patient is a 58-year-old female who returns to clinic in [facility]. Elevated ferritin. 02/27 Ferritin of 800 Positive family history of hemochromatosis HFE: one copy of the H63D mutation, no C282Y mutation Quantitative phlebotomy date ferritin phlebotomy 02/27 800 04/09/18 590 yes 04/22/18 423 yes 05/07/18 303 yes 05/20/18 236 yes 06/03 260 yes 06/17 154 yes 07/01 132 yes 07/15 188 yes 07/29 70 no Current ferritin 79 We had recommended a course of quantitative phlebotomy because of her elevated ferritin and family history despite the fact that her mutational status showed she was a carrier and unlikely to have ironoverload. As the chart above reveals she received 8 phlebotomies. Her ferritin dropped below 100 which was ourtarget and her phlebotomies were stopped. In general if there are 4 g or more grams of iron that need to be removed that is consistent with iron overload. In her situation she was iron unloaded after removing less than 2 g. Therefore I do not think she had any evidence of iron overload. Today I spent 40 minutes of the visit in [id number] consultation with the patient and her .We discussed her family history. We discussed her mutational status which is heterozygote. This is acommon phenotype in the [place]. In general these patients are at low risk for developing hemochromatosis. Based on her strong family history we went to the extra step of estimating the amount of iron in her body which turns out to be less than 2 g. Therefore no evidence of an iron overload syndrome for her. I provided reassurance. I do not think she needs any specific follow-up. If she would like to donateblood to the [place] I think that would be fine. I think she is at very low risk of any organ damage from iron accumulation to the rest of her life. All of the patient's questions and her 's questions were answered to their satisfaction. I did not make a return appointment for her in the hematology clinic. documented in this encounter Plan of Treatment Upcoming Encounters Date Type Specialty Care Team Description 03/28/2022 Appointment 06/20/2022 Appointment Hematology and Oncology 06/20/2022 Office Visit Hematology and Oncology Josiah Tse MD [facility] er HEMATOLOGY/ONCOL MARCUS DEPT. [place], [place] [address] (Wo rk) documented as of this encounter Visit Diagnoses Diagnosis Elevated ferritin Other abnormal blood chemistry documented in this encounter Care Teams Steersman Relationship Specialty Start Date End Date Arnaldo Marcus DO PCP - General Family Medicine 09/11/[address] [place] [address] documented as of this encounter
--- OUTSIDE RECORDS SUMMARY | 2022-03-20 12:38 | XMS_ITS | Encounter Summary ---
:1960 Author Organization [facility] Address [address] [place] [address] Care Team Providers Name Role Phone Jaden JARA MD, Hemal Ricardo Primary Care Provider [phone] Encounter Details Date Type Department Care Team Description 03/27/2018 Orders Only Hematology/Oncology at Daniel Tirado MD Elevated ferritin [facility] [address] [place], [place] HEMATOLOGY/ONCOLOGY [id number] DEPT. [phone] [place] [id number] (Wo rk) Social History Tobacco Use Types [...] place to sleep or slept in a long term (including now)? Sex Assigned at Date Recorded Female 06/20/2021 10:20 AM EST documented as of this encounter Plan of Treatment Upcoming Encounters Date Type Specialty Care Team Description 03/28/2022 Appointment 06/20/2022 Appointment Hematology and Oncology 06/20/2022 Office Visit Hematology and Oncology Josiah Tse MD [facility] [place] [place] [address] (Wo rk) documented as of this encounter Visit Diagnoses Diagnosis Elevated ferritin Other abnormal blood chemistry documented in this encounter Care Teams Certified Cytotechnologist Relationship Specialty Start Date End Date Hemal Stanley III, MD PCP - General 04/04/10 09/10/[address] [place] [id number] documented as of this encounter
[2022-03-20 12:40] LABS: FREE T4 0.77 ng/dL (0.76-1.46)
== END 2022-03-20 12:35 | disposition home or self-care (01) ==
LOC: LBO 12:35
PROVIDERS: PCP Family Medicine; Visit Provider Family Medicine
DX: E03.9 Hypothyroidism, unspecified (principal); I10 Essential (primary) hypertension; Z00.00 Encounter for general adult medical examination without abnormal findings
CPT/HCPCS: 36415; 80053; 84439; 84443

== ENCOUNTER 2022-07-18 10:26 | Outpatient (CLI) | payer BC, SELFPAY ==
[2022-07-18 10:05] LABS: Abs Immature Grans 0.01 10^3/uL (0.0-0.06); Absolute Basophil Count 0.06 10^3/uL (0.0-0.2); Absolute Eosinophil Count 0.21 10^3/uL (0.0-0.7); Absolute Lymphocyte Count 2.71 10^3/uL (1.2-3.4); Absolute Monocyte Count 0.45 10^3/uL (0.1-0.8); Absolute Neutrophil Count 1.89 10^3/uL (1.2-6.7); Basophils % 1.1; Eosinophils % 3.9; HCT 42.9 % (36.0-46.0); HGB 13.9 g/dL (11.2-15.7); Immature Grans % 0.2; Lymphocytes % 50.8; MCH 30.3 pg (27.0-33.0); MCHC 32.4 % (32.0-36.0); MCV 94 fL (80-95); MPV 9.2 fL (8.0-11.0); Monocytes % 8.4; Neutrophils % 35.6; Platelet Count 399 10^3/uL (130-400); RBC 4.59 10^6/uL (3.93-5.22); RDW 13.4 % (11.7-14.6); RDW-SD 45.7 fL; WBC 5.33 10^3/uL (4.4-10.8)
== END 2022-07-18 10:27 | disposition home or self-care (01) ==
LOC: LBO 10:27
PROVIDERS: PCP Family Medicine; Visit Provider Nurse Practitioner Adult Health
DX: Z14.8 Genetic carrier of other disease (principal); E83.118 Other hemochromatosis
CPT/HCPCS: 36415; 85025

== ENCOUNTER 2022-08-28 02:37 | Outpatient (CLI) | payer BC, SELFPAY ==
[2022-08-28 12:41] LABS: ALT 34 U/L (14-59); AST 22 U/L (15-37); Albumin 3.8 g/dL (3.4-5.0); Alkaline Phosphatase 50 U/L (46-116); Anion Gap 7.4 mmol/L (3-11); BUN 23 mg/dL (7-18); Bilirubin, Total 1.5 mg/dL (0.2-1.0); CO2 26.6 mmol/L (21.0-32.0); CREATININE 0.9 mg/dL (0.55-1.02); Calcium 9.3 mg/dL (8.5-10.1); Chloride 103 mmol/L (98-107); Estimated GFR 71.39 (mL/min/1.73m2); Glucose 105 mg/dL (74-106); Potassium 4.2 mmol/L (3.5-5.1); Sodium 137 mmol/L (136-145); TSH (W/Ref FT4) 1.21 uIU/mL (0.36-3.74); Total Protein 7.9 g/dL (6.4-8.2)
== END 2022-08-28 02:38 | disposition home or self-care (01) ==
LOC: LOS 02:37
PROVIDERS: PCP Family Medicine; Visit Provider Family Medicine
DX: Z00.00 Encounter for general adult medical examination without abnormal findings (principal); I10 Essential (primary) hypertension; E03.9 Hypothyroidism, unspecified
CPT/HCPCS: 36415; 80053; 84443

== ENCOUNTER 2022-08-31 12:54 | Outpatient (CLI) | payer BC, SELFPAY ==
--- NOTE | 2022-08-31 12:45 | RT.EKG_ITS ---
APPROVED REPORT Exam: Resting ECG Reason for Exam: New and unusual fatigue Patient Location: O HR:101 bpm ECG Measurements Heart Rate 101 AXIS CA 146 P 53 QRSd 86 QRS 52 QT 337 T 73 QTc 437 Conclusion Sinus tachycardia...rate> 99
== END 2022-08-31 12:55 | disposition home or self-care (01) ==
PROVIDERS: PCP Family Medicine; Visit Provider Family Medicine
DX: T73.3XXA Exhaustion due to excessive exertion, initial encounter; E83.110 Hereditary hemochromatosis
CPT/HCPCS: 93010

== ENCOUNTER 2022-08-31 15:29 | Outpatient (REF) | payer BC, SELFPAY ==
[2022-08-31 20:47] LABS: Bilirubin Negative (Negative); Blood Trace-intact (Negative); Clarity Cloudy (Clear); Glucose Negative (Negative); Ketones Negative (Negative); Leukocyte Esterase Trace (Negative); Nitrite Negative (Negative); Specific Gravity >= 1.030 (1.005-1.025); Urobilinogen 0.2 mg/dL (Up to 0.2)
[2022-08-31 20:54] LABS: Bacteria Rare HPF (Negative); C & S Indicated? Yes; Casts Negative LPF (Negative); Crystals Moderate Amorphous HPF (Negative); Epithelial Cells Rare HPF (Negative); Mucus Negative (Negative); RBC 0-2 HPF (0-2); WBC 0-2 HPF (0-5)
== END 2022-08-31 15:30 | disposition home or self-care (01) ==
LOC: LBN 15:29
PROVIDERS: PCP Family Medicine; Visit Provider Family Medicine
DX: R30.0 Dysuria (principal); E83.119 Hemochromatosis, unspecified; R53.83 Other fatigue; R82.998 Other abnormal findings in urine
CPT/HCPCS: 81003; 81015; 87086

== ENCOUNTER 2022-09-05 02:00 | Outpatient (CLI) | payer BC, SELFPAY ==
--- NOTE | 2022-09-05 16:35 | DI.US_ITS ---
APPROVED REPORT EXAM: Comprehensive 2D, Doppler, and color-flow Echocardiogram Patient Location: Out-Patient Beam Racker: Ignacia Váqzuez RDCS (AE) Indications: Post exertion fatigue Other Information Study Quality: Adequate Conclusion Normal left ventricular wall thickness and chamber size. Ejection fraction is 60%. Wall motion is n ormal Normal right ventricular size and systolic function Both atria are normal in size There is no structural or hemodynamically significant valvular disease Wall motion Left Ventricle The left ventricle is normal size. The left ventricular systolic function is normal. The left ventric ular ejection fraction is within the normal range. There is normal left ventricular wall thickness. T here is normal LV segmental wall motion. There is no ventricular septal defect visualized. LVEF is 60 %. Right Ventricle The right ventricle is normal size. The right ventricular systolic function is normal. Atria The left atrium size is normal. The right atrium size is normal. The interatrial septum is intact wit h no evidence for an atrial septal defect. Aortic Valve The aortic valve is normal in structure. Aortic valve is trileaflet. There is no aortic valvular sten osis. No aortic regurgitation is present. Mitral Valve The mitral valve is normal in structure. No evidence of mitral valve stenosis. Mild mitral regurgita tion. Tricuspid Valve The tricuspid valve is normal in structure. There is no tricuspid valve stenosis. Trace tricuspid reg urgitation. Unable to assess PA pressure. Pulmonic Valve The pulmonary valve is normal in structure. There is no pulmonic valvular stenosis. Mild pulmonic reg urgitation. Great Vessels The aortic root is normal in size. The ascending aorta is normal in size. Aortic arch is not well vis ualized. IVC is normal in size and collapses >50% with inspiration. Pericardium There is no pericardial effusion. 2D Dimensions IVSD d PLAX 0.88 cm F: 0.6-1.0 LV Vol A2C d MOD 54.3 mL LVPW d PLAX 0.86 cm F: 0.6 - 1.0 LV Vol A4C d MOD 78.5 mL LVID d PLAX 4.53 cm F: 3.8 - 5.2 LA vol/ BSA A2C s A-L 18.7 mL/m2 LVDs 3.10 cm F: 2.2 - 3.5 LA vol/ BSA A4C s A-L 28.6 mL/m2 Ao Root d 2.77 cm F: 2.7 - 3.3 LA Vol/ BSA Biplane s A-L 24.4 mL/m2 RA Area A4C 13.08 cm2 LA Area A4C s MOD 16.32 cm2 RA Vol/ BSA A4C s A-L 19.9 mL/m2 LA Area A2C s MOD 12.53 cm2 Ao Asc Diam d 2.82 cm F: 2.3 - 3.1 LV EF A4C MOD 59.5 % LV EF Teichholz 58.2 % LV EF A2C MOD 57.9 % LVEF (Forrest's) 57.34 % F: 54 - 74 LV EF Biplane MOD 57.3 % LV Volume 53.64 mL F: 46 - 106 SV 37.43 mL LV Volume Index 34.60 mL/m2 F: 29 - 61 SV Index 24.08 mL/m2 LV Vol Biplane MOD 65.3 mL FS 30.55 % M-Mode TAPSE 1.75 cm (M/F) >1.7 LV Diastology MV E' medial 0.083 (>0.07 m/s) E/A Ratio 0.9 LV E/e MED 8.90 (<14) MV E Vmax 0.74 (0.4-1.3 m/s) MV E' lateral 0.101 (>0.1 m/s) MV A Vmax 0.80 (0.4-1.3 m/s) LV E/e LAT 7.25 (<14) MV E/A Ratio 0.89 MV E/E' medial 8.91 MV E/E' lateral 7.30 Aortic Valve LVOT Area 3.61 cm2 AoV Area Vmax 2.61 cm2 LVOT Vmax 1.05 m/s AoV Area/ BSA (Vmax) 1.68 cm2/m2 LVOT Mean Carlos. 0.64 m/s MARIBELL Mean Carlos. 2.27 cm2 LVOT Peak Grad 4.4 mmHg MARIBELL Mean Carlos. Index 1.46 cm2/m2 LVOT Mean Grad 2.0 mmHg LVOT VTI 0.236 m LVOT Diam s 2.10 cm AoV Vmax 1.45 m/s Velocity Ratio 0.72 AoV Mean Carlos. 1.02 m/s AoV Peak Grad 8.4 mmHg LVOT SV 85.09 mL AoV Mean Grad 4.6 mmHg AoV VTI 0.291 m AoV Area VTI 2.93 cm2 AoV Area/ BSA (VTI) 1.88 cm/m2 Mitral Valve MV DT 217 (160-240 msec) MV PHT 63 msec MV Area PHT 3.50 cm2 MV VTI 0.240 m MV Area VTI 3.54 (4.0-6.0 cm2) Pulmonary Valve PV Vmax 0.89 (0.5-1.5 m/s) RVOT Peak Gr. 1.63 mmHg PV Peak Grad 3.2 mmHg RVOT Mean Gr. 0.85 mmHg PV Mean Grad 1.7 mmHg RVOT VTI 0.144 m PV VTI 0.187 m RVOT Vmax 0.64 m/s
== END 2022-09-05 02:20 ==
LOC: DI 02:00
PROVIDERS: PCP Family Medicine; Visit Provider Family Medicine
DX: T73.3XXA Exhaustion due to excessive exertion, initial encounter (principal); I10 Essential (primary) hypertension
CPT/HCPCS: 93306

== ENCOUNTER 2023-02-13 11:24 | Outpatient (REF) | payer BC, SELFPAY ==
--- NOTE | 2023-02-13 10:45 | PAPFT_PTH ---
PATIENT: Tarsha Pedraza LOC: [facility] U#:[id number] AGE/SX: 62/F ROOM: RE02/13/[address]: Lynne Gonzalez NP : 1960 BED: DIS: 02/13/2023 SPEC #: [id number] RECD: 02/13/23 12:41 STATUS: ZAIREYessenia REQ #: [id number] RAINA: 02/13/23 10:[address]: Lynne Gonzalez NP DEPT: [facility] Cytology RECD BY: Teri Miller ENTERED: 02/13/23 12:42 SP TYPE: PAPFT OTHR DR: Christelle Kathleen Tissues: 1 - CX/ENDOCX FOR PAP SMEARS Procedures: PAP THIN PREP/UVM Screening HPV DNA PROBE Comments: [id number]
== END 2023-02-13 11:25 | disposition home or self-care (01) ==
LOC: LBN 11:24
PROVIDERS: PCP Family Medicine; Visit Provider Nurse Practitioner Women's Health
DX: Z12.4 Encounter for screening for malignant neoplasm of cervix (principal); Z11.51 Encounter for screening for human papillomavirus (HPV)
CPT/HCPCS: 88142; 87624

== ENCOUNTER → 2023-03-25 01:46 | Outpatient (CLI) | payer MEDICARE, SELFPAY ==
--- NOTE | 2023-03-25 11:45 | DI.MAMMO_ITS ---
Exam(s) MAMMO SCREENING EXAM: MAMMO SCREENING CLINICAL HISTORY: screening. TECHNIQUE: Bilateral full field digital CC and MLO mammographic images were obtained with 3D tomosyn thesis and utilizing computer aided detection (CAD). COMPARISON: Prior mammograms were reviewed. Ultrasound of March 2021 was also reviewed. FINDINGS: Fibroglandular tissue pattern is again noted be moderately dense. There are no obvious new spiculated masses nor malignant appearing microcalcification groups. Previously described small nodule medially at 3 o'clock position of the right breast shown to be a cy st on ultrasound of March 2021 is not seen on today's mammogram. There is no significant architectural distortion nor skin thickening-retraction. IMPRESSION: No radiographic evidence of malignancy. BI-RADS Category 1 - Negative Breast Density - Category C - Heterogeneously dense Breast density Category C or D implies that the patient has dense breast tissue. Dense breast tissue can make it harder to find cancer on a mammogram. Dense breast tissue is also associated with an incr eased risk of breast cancer. This information about the result of the mammogram report was provided to the patient to raise their awareness. Use this report when you speak with the patient about their risks for breast cancer, which includes their family history. At that time, you may recommend additional screening tests (Ultrasoun d or MRI) as these tests may add significant information. A negative radiographic report should not delay biopsy if a dominant or clinically suspicious mass is present. Up to ten percent of cancers are not identified on mammography. A negative report may reinforce clinical impression. Adenosis and dense breasts may obscure an underlying neoplasm. False positive reports average 6 to 10%. Patient will receive a letter notifying them of these results.
== END ==
PROVIDERS: PCP Family Medicine; Visit Provider Nurse Practitioner Women's Health
DX: Z12.31 Encounter for screening mammogram for malignant neoplasm of breast (principal)
CPT/HCPCS: 77063; 77067

== ENCOUNTER 2023-05-16 14:10 | Emergency (ER) | payer MEDICARE, SELFPAY ==
[2023-05-16 14:13] VITALS: BP 187/91; PULSE 75; RESP 18; TEMP 36.3; O2SAT 100
--- NOTE | 2023-05-16 14:45 | RT.EKG_ITS ---
APPROVED REPORT Exam: Resting ECG Reason for Exam: [facility] Patient Location: E HR:72 bpm ECG Measurements Heart Rate 72 AXIS ME 179 P 61 QRSd 89 QRS 61 QT 386 T 101 QTc 424 Conclusion Sinus rhythm...normal P axis, V-rate 60- 99 Nonspecific T abnormalities, lateral leads...T <-0.10mV, I aVL V5 V6 sinus rhythm, normal axis, normal intervals, non ischemic
--- NOTE | 2023-05-16 14:45 | DI.CT_ITS ---
Exam(s) CT BRAIN NECK CTA EXAM: CT BRAIN NECK CTA CLINICAL HISTORY: transient global amnesia beginning this AM. TECHNIQUE: Imaging Protocol: Axial CT angiography was performed with multi-slice acquisition and mu lti-planar and 3D reconstructions. CONTRAST MATERIAL: Intravenous: Omnipaque 350 Contrast volume:100 ml COMPARISON: No exams were available for comparison FINDINGS: CT Head W/O and W contrast: Ventricles and Extra axial spaces: Normal in size and morphology for the patient's age. Hemorrhage: None. Cerebral parenchyma: No evidence of acute infarct or mass. Mild frontal atrophy. Midline shift: None. Brainstem/Cerebellum: No acute findings.. Calvarium: Normal. Visualized Paranasal sinuses/Mastoids: Mucous retention at the floor of the left maxillary sinus. Soft Tissues: Unremarkable. Enhancement: Normal. CTA Brain W: Internal Carotid Arteries: Petrous: Normal. Cavernous: Normal. Cerebral: Normal. Middle Cerebral Arteries: Right: No aneurysm, occlusion or significant stenosis. Left: No aneurysm, occlusion or significant stenosis. Anterior Cerebral Arteries: Right: No aneurysm, occlusion or significant stenosis. Left: No aneurysm, occlusion or significant stenosis. Posterior cerebral Arteries: Right: No aneurysm, occlusion or significant stenosis. Left: No aneurysm, occlusion or significant stenosis. Vertebral Arteries: Right: No aneurysm, occlusion or significant stenosis. Left: No aneurysm, occlusion or significant stenosis. Basilar Artery: No aneurysm, occlusion or significant stenosis. CTA Neck W: Common Carotid: Right: Minimal plaque at bulb. No dissection, occlusion or significant stenosis. Left: Minimal plaque at bulb. No dissection, occlusion or significant stenosis. External Carotid: Right: No dissection, occlusion or significant stenosis. Left: No dissection, occlusion or significant stenosis. Internal Carotid: Right: No dissection, occlusion or significant stenosis. Left: No dissection, occlusion or significant stenosis. Vertebral Artery: Right: No dissection, occlusion or significant stenosis. Left: No dissection, occlusion or significant stenosis. Lung Apices: Normal. Bones: Degenerative changes. No acute abnormality. Soft Tissues: Normal. IMPRESSION: 1. Normal CTA examination of the [place]. 2. Unremarkable CT Head. 3. CT angiography neck: Mild calcific plaque at the common carotid bulbs. No significant stenosis. RADIATION DOSE DELIVERED: !Error Total DLP DATA REPOSITORY: All CT scans at this facility are submitted to the National Radiology Data Registry (NRDR) Dose Index Registry (DIR) with the [employer] (ACR). RADIATION OPTIMIZATION: All CT scans at this facility use at least one of these dose optimization te chniques: automated exposure control; mA and/or kV adjustment per patient size (includes targeted exa ms where dose is matched to clinical indication); or iterative reconstruction.
--- NOTE | 2023-05-16 14:45 | DI.RAD_ITS ---
Exam(s) XR CHEST 2V PA LATERAL EXAM: XR CHEST 2V PA LATERAL CLINICAL HISTORY: transient global amnesia; screening chest xray TECHNIQUE: 2D digital imaging was performed. COMPARISON: No exams were available for comparison FINDINGS: HEART: Normal size. Aorta: Not dilated. PULMONARY VASCULATURE: Normal. LUNGS: Calcified granuloma right mid lung field, otherwise zclear. PLEURAL SPACE: No pleural effusion or pneumothorax. BONE:Unremarkable for age. Soft tissues: Unremarkable. IMPRESSION: No acute abnormality. DATA REPOSITORY: RADIATION DOSE DELIVERED:
--- NOTE | 2023-05-16 14:50 | W.ED.GENAD ---
HPI General Stated Complaint: GenMedical BRITTANI: 3 Date/Time Provider Initiated Documentation: 05/16/23 14:31. HPI Narrative: 63-year-old female history of hypertension hyperlipidemia, presents with confusion that began this morning, has a family history and personal history of what sounds like transient global amnesia, patient went to a yoga class that involved chanting and breath work, came home early unexpectedly found her wandering around the house, patient confused to what day it is also did not remember that her daughter recently had a baby. No headache no chest pain or shortness of breath no weakness or numbness no change in speech. Prior event of similar nature happened approximately 7 years ago patient was found wandering in the early hours of the morning by the police and brought home to her . No recent travel no recent injury no recent medications no new foods. Related Data Home Medications Medication Instructions Recorded Confirmed cholecalciferol (vitamin D3) 25 25 mcg PO DAILY 03/03/20 05/16/23 mcg (1,000 unit) capsule amlodipine 5 mg tablet See Rx Instructions .Route 06/18/22 05/16/23 .COMPLEX #90 tabs ezetimibe 10 mg tablet 10 mg PO DAILY #90 tabs 06/18/22 05/16/23 losartan 100 mg tablet 100 mg PO DAILY #90 tabs 06/18/22 05/16/23 rosuvastatin 5 mg tablet 5 mg PO DAILY #90 tabs 06/18/22 05/16/23 spironolactone 25 mg tablet 25 mg PO DAILY #90 tabs 06/18/22 05/16/23 levothyroxine 75 mcg tablet 75 mcg PO DAILY #90 tabs 02/25/23 05/16/23 Previous Rx's Medication Instructions Recorded amlodipine 5 mg tablet See Rx Instructions .Route 06/18/22 .COMPLEX #90 tabs ezetimibe 10 mg tablet 10 mg PO DAILY #90 tabs 06/18/22 losartan 100 mg tablet 100 mg PO DAILY #90 tabs 06/18/22 rosuvastatin 5 mg tablet 5 mg PO DAILY #90 tabs 06/18/22 spironolactone 25 mg tablet 25 mg PO DAILY #90 tabs 06/18/22 levothyroxine 75 mcg tablet 75 mcg PO DAILY #90 tabs 02/25/23 Allergies Allergy/AdvReac Type Severity Reaction Status Date / Time amoxicillin Allergy Mild RASH; Verified 05/16/23 14:20 SWELLING lisinopril AdvReac Intermediate COUGH Verified 05/16/23 14:20 [id number] Reductase AdvReac not well Verified 05/16/23 14:20 Inhibitor [Qixenzj-Svv-Qre Reductase Inhibitor] Review of Systems Narrative: Review of Systems Constitutional: negative Eyes: negative ENT: negative Cardiovascular: negative Respiratory: negative Gastrointestinal: negative : negative Musculoskeletal: negative Skin: negative Neurologic: Amnesia Psych: negative PFSH All Active Problems (Updated 05/16/23 @ 16:44 by Dallin Renee MD) Transient global amnesia (Acute) Essential hypertension (Chronic 04/14/13) Hyperlipidemia (Chronic) Hypothyroidism (Chronic) Sleep disorder (Chronic) parasomnia: sleep walks (brother also) Hemochromatosis (Chronic) having phlebotomy at [facility]; improved. Postmenopausal (Acute) Fatigue due to excessive exertion (Acute) Sensitivity to sunlight (Acute) Medical History Hallux malleus of left foot (02/10/16) History of COVID-19 (~09/2021) minimal symptoms Surgical History History of bilateral ligation of fallopian tubes Family History Mother , 87 Personal history of malignant neoplasm breast Heart disease - [place] Breast cancer Hypertension Father , 74 Personal history of malignant neoplasm skin Alcohol use disorder Cancer Skin Hypertension Stroke Brother Heart disease [place] Hypertension Sister Hypertension Sister , 2 No problems noted. Brother Hypertension Son Hypertension Daughter No problems noted. Social History Smoking/Tobacco Use Status: Former Tobacco Use tobacco type: cigarettes Quit Date: 05/13/69 Pack-years: 6 Second Hand Exposure: Yes Smoking risk assessment performed?: Yes Alcohol Intake: current Alcohol Intake frequency: a few times a week Alcohol type: beer, wine and hard liquor Drug use: Never Substance use type: does not use Caregiver/Support person: No Household members: spouse Housing: house Communication Needs: None Do you need help understanding health information?: Rarely current occupation: Retired [employer] Pets and animals: Yes Pets and animals: cat(s) Sexually active: Yes Do you think of yourself as: straight/heterosexual Current gender identity: female What is your relationship status?: How often do you talk on the phone with friends or family?: three or more times per week How often do you get together with friends or relatives?: three or more times per week How often do you attend zoroastrianism or islam services?: 4 or more times per year Do you belong to any clubs or organized social groups?: no Panel score (0-1 are the most socially isolated patients): 3 What type of physical activity do you participate in: walking, weight lifting and yoga Duration: > 90 minutes/day Frequency: daily Delmy/Roman Catholic: Confucianism Special delmy needs: No Seatbelt use: always Helmet use: Yes Helmet use: always Drive intox or ride w/intox 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 Do you feel safe at home: Yes Do you feel safe in your relationship?: Yes Female Reproductive History Menstrual Menopause type: natural History History 3 Para 2 Hx # Term Pregnancies Multiple births Hx # Pregnancies Ectopic pregnancies AB induced Hx Number of Living Children AB spontaneous Exam Narrative Exam Narrative: Physical Examination General: alert, awake, cooperative, resting comfortably, no acute distress HEENT: normocephalic, atraumatic; PERRL, EOM intact, conjunctiva normal; no nasal discharge; moist mucous membranes, oral and pharyngeal mucosa normal, tolerating secretions Neck: supple, trachea midline; full ROM Chest: normal to inspection Respiratory: normal respiratory effort, speaking in full sentences Cardiac: regular rate, regular rhythm, S1S2 intact, no murmurs rubs or gallops GI: abdomen soft, non-tender, non-distended; no palpable mass or hepatosplenomegaly Skin: no lesions, rashes or trauma appreciated Neuro: Patient alert to self and place, not to time, cranial nerves II through XII intact, 5-5 strength upper and lower extremities bilaterally, no ataxia Extremities: Psych: Appropriate mood and affect Course Vital Signs Vital signs: Vital Signs Temperature 36.3 C L 05/16/23 14:13 Pulse 18 L 05/16/23 14:13 Respiratory Rate 18 05/16/23 14:13 Blood Pressure 187/91 H 05/16/23 14:13 Pulse Oximetry 100 05/16/23 14:13 Temperature 36.3 C L 05/16/23 14:13 Temperature Source Skin 05/16/23 14:13 Pulse 18 L 05/16/23 14:13 Respiratory Rate 18 05/16/23 14:13 Respiratory Effort Normal 05/16/23 14:19 Blood Pressure 187/91 H 05/16/23 14:13 Blood Pressure Position Sitting 05/16/23 14:13 Pulse Oximetry 100 05/16/23 14:13 Oxygen Delivery Method Room Air 05/16/23 14:13 Oxygen Flow Rate 0 05/16/23 14:13 Medical Decision Making 63-year-old female personal history and family history of what sounds like transient global amnesia, presents with confusion that began this morning after leaving her yoga class early, found wandering at home confused about the date and forgetful regarding recent life events including the of her grandchild, alert to self and place however not to time, blood sugar normal, moderately hypertensive in arrival, afebrile nontoxic nonmeningeal, cranial nerves II through XII intact 5/5 strength upper and lower extremities, no ataxia, no chest pain shortness of breath nausea vomiting no headache, no recent travel no recent injury no new medications. High clinical suspicion for transient global amnesia must also consider CVA versus seizure versus electrolyte derangement versus dehydration versus viral illness lower suspicion for encephalitis or meningitis lower suspicion for ACS, lower suspicion for toxicologic process. Screening labs imaging fluids close reassessment of symptoms. Likely disposition home with close neurology follow-up. 16: 42 patient was comfortably no acute distress. Still with persistent amnesia. Nonfocal. CT CTA head neck unremarkable. Labs unremarkable toxicologic screening unremarkable. Counseled family and patient extensively regarding likely diagnosis. Will discharge home with strict return precautions. Will also provide neurology follow-up. Quality:SDOH Health Related Social Needs: No Data to Display Discharge Plan Disposition Patient Disposition: Home Condition: Stable Discharge Details Chief Complaint: GenMedical Clinical Impression: Transient global amnesia Primary Care Provider: Christelle Kathleen ED Provider: Dallin Renee Home Meds and New Rx's Prescriptions: No Action cholecalciferol (vitamin D3) 25 mcg (1,000 unit) capsule 25 mcg PO DAILY amlodipine 5 mg tablet See Rx Instructions .ROUTE .COMPLEX Qty: 90 3RF Dose Instruction: TAKE 1 TABLET BY MOUTH DAILY Rx Instructions: TAKE 1 TABLET BY MOUTH DAILY ezetimibe 10 mg tablet 10 mg PO DAILY Qty: 90 3RF losartan 100 mg tablet 100 mg PO DAILY Qty: 90 3RF rosuvastatin 5 mg tablet 5 mg PO DAILY Qty: 90 3RF spironolactone 25 mg tablet 25 mg PO DAILY Qty: 90 3RF levothyroxine 75 mcg tablet 75 mcg PO DAILY Qty: 90 1RF Discharge Instructions Instructions: Transient Global Amnesia (ED) Additional Instructions: Please return to the emergency department for any worsening symptoms or if symptoms or not resolving by tomorrow. Follow-up closely with neurology referral.
[2023-05-16 14:57] VITALS: BP 187/91; PULSE 18; RESP 18; TEMP 36.3; O2SAT 100
[2023-05-16 14:59] LABS: Abs Immature Grans 0.04 10^3/uL (0.0-0.06); Absolute Basophil Count 0.08 10^3/uL (0.0-0.2); Absolute Eosinophil Count 0.03 10^3/uL (0.0-0.7); Absolute Lymphocyte Count 2.17 10^3/uL (1.2-3.4); Absolute Monocyte Count 0.44 10^3/uL (0.1-0.8); Absolute Neutrophil Count 4.45 10^3/uL (1.2-6.7); Basophils % 1.1; Eosinophils % 0.4; HCT 42.4 % (36.0-46.0); Immature Grans % 0.6; Lymphocytes % 30.1; MCH 30.8 pg (27.0-33.0); MCV 93 fL (80-95); MPV 8.9 fL (8.0-11.0); Monocytes % 6.1; Neutrophils % 61.7; Platelet Count 419 10^3/uL (130-400); RBC 4.55 10^6/uL (3.93-5.22); RDW 12.9 % (11.7-14.6); RDW-SD 44.7 fL; WBC 7.21 10^3/uL (4.4-10.8)
[2023-05-16 15:02] LABS: Bilirubin Negative (Negative); Blood Trace-intact (Negative); Clarity Clear (Clear); Glucose Negative (Negative); Ketones Negative (Negative); Leukocyte Esterase Negative (Negative); Nitrite Negative (Negative); Urobilinogen 0.2 mg/dL (Up to 0.2)
[2023-05-16] MEDS: Normal Saline 1,000 ML 1000 ML IV (15:03)
[2023-05-16 15:15] LABS: Bacteria Negative HPF (Negative); C & S Indicated? No; Casts Negative LPF (Negative); Crystals Negative HPF (Negative); Epithelial Cells Few HPF (Negative); Mucus Negative (Negative); RBC 0-2 HPF (0-2); WBC 0-2 HPF (0-5)
[2023-05-16] MEDS: Normal Saline - Diluent 50 ML VIAL IJ (15:23)
[2023-05-16] MEDS: Omnipaque 350 MG/ML 100 ML BTL IJ (15:24)
[2023-05-16 15:28] LABS: PTT Activated 26.7 sec (23.6-32.8); Prothrombin Time 10.5 sec (9.1-11.1)
[2023-05-16 15:32] LABS: ALT 40 U/L (14-59); AST 21 U/L (15-37); Albumin 4.1 g/dL (3.4-5.0); Alkaline Phosphatase 55 U/L (46-116); Anion Gap 13.1 mmol/L (3-11); BUN 20 mg/dL (7-18); Bilirubin, Total 0.8 mg/dL (0.2-1.0); CO2 24.9 mmol/L (21.0-32.0); CREATININE 0.9 mg/dL (0.55-1.02); Calcium 9.8 mg/dL (8.5-10.1); Chloride 103 mmol/L (98-107); Estimated GFR 70.95 (mL/min/1.73m2); Glucose 123 mg/dL (74-106); Potassium 3.9 mmol/L (3.5-5.1); Sodium 141 mmol/L (136-145); TSH (W/Ref FT4) 0.34 uIU/mL (0.36-3.74); Total Protein 8.5 g/dL (6.4-8.2)
[2023-05-16 15:33] LABS: *AMPHETAMINES SCREEN URINE Negative (Negative); *BARBITURATES SCREEN URINE Negative (Negative); *BENZODIAZEPINES SCREEN URINE Negative (Negative); Cannabinoids THC Negative (Negative); Cocaine Screen,Urine Negative (Negative); METHADONE URINE SCREEN Negative (Negative); OPIATES URINE SCREEN Negative (Negative)
[2023-05-16 15:35] LABS: Tricyclic Antidepressants Negative (Negative)
[2023-05-16 15:45] LABS: Acetaminophen < 2 ug/mL (10-30); Salicylate < 2.8 mg/dL (<2.8)
[2023-05-16 15:48] VITALS: BP 191/89; PULSE 88
[2023-05-16 15:49] LABS: ETHANOL BLOOD < 3.0 mg/dL (<10)
[2023-05-16 15:51] LABS: FREE T4 1.03 ng/dL (0.76-1.46)
[2023-05-16 16:01] VITALS: BP 175/88; PULSE 72
[2023-05-16 16:51] VITALS: BP 163/83; PULSE 80; RESP 14; O2SAT 98
--- NOTE | 2023-05-16 16:58 | NUR.NOTE ---
Referral for Care Management to set up an appointment with [facility] Neurology due to Transient Global Amnesia some time next week.
== END 2023-05-16 16:52 | disposition home or self-care (01) ==
PROVIDERS: Emergency Provider Emergency Medicine; PCP Family Medicine
DX: G45.4 Transient global amnesia (principal); I10 Essential (primary) hypertension; E78.5 Hyperlipidemia, unspecified; Z87.891 Personal history of nicotine dependence; Z79.899 Other long term (current) drug therapy
CPT/HCPCS: 36415; 70496; 70498; 80053; 80307; 93005; 96360; 99285; 71046; 80320; 80329; 81003; 81015; 83735; 84439; 84443; 85025; 85610; 85730; 93010; 99284; J3490

== ENCOUNTER 2023-06-21 03:01 | Outpatient (CLI) | payer MEDICARE, SELFPAY ==
--- NOTE | 2023-06-22 20:39 | PDOC.EEG ---
Neurology EEG EEG: [facility] Department of Neurology EEG REPORT Date of Recordin06/21/23 Interpreting Physician: Dr. Laura Gordillo PCP/Referring Provider: Dr. Christelle Kathleen Reason for study: Ms. Pedraza has a recent episode of amnesia lasting ~12hours concerning for seizure. Current Medications: Home Medications Medication Instructions Recorded Confirmed Type cholecalciferol (vitamin D3) 25 25 mcg PO DAILY 03/03/20 06/19/23 History mcg (1,000 unit) capsule amlodipine 5 mg tablet See Rx Instructions .Route 06/19/23 06/19/23 Rx .COMPLEX #90 tabs ezetimibe 10 mg tablet 10 mg PO DAILY #90 tabs 06/19/23 06/19/23 Rx levothyroxine 75 mcg tablet 75 mcg PO DAILY #90 tabs 06/19/23 06/19/23 Rx losartan 100 mg tablet 100 mg PO DAILY #90 tabs 06/19/23 06/19/23 Rx rosuvastatin 5 mg tablet 5 mg PO .3xw #40 tabs 06/19/23 Rx spironolactone 25 mg tablet 25 mg PO DAILY #90 tabs 06/19/23 06/19/23 Rx METHODS: A 21 channel digitized electroencephalogram was performed in the [facility] Clinical Neurophysiology Laboratory. The 10/20 international system of electrode placement was used and bipolar and referential electrode montages were recorded. In addition to EEG the patient was monitored for EKG and lateral/vertical eye movements. Activation procedures of photic stimulation and hyperventilation were performed if applicable. Video was used during activation procedures and during events where applicable. The duration of the recording was 30 minutes. DESCRIPTION OF EEG: The patient was noted to be awake and drowsy during the recording. During maximal wakefulness a 10-Hz posterior background rhythm was present which was well-modulated, symmetrical, reactive to eye opening, and of moderate voltage. With eye opening the background activity changed to a low voltage mixture of alpha, beta, and occasional theta range frequencies. Faster frequencies were present in the bilateral anterior head regions. There was a normal anterior-posterior voltage gradient. During drowsiness, there was attenuation of the posterior dominant background rhythm and vertex waves. No stage II sleep was recorded. There were frequent, moderate-amplitude L>R temporal sharp-waves. These were not epileptic. Activating Procedures: Photic stimulation was not performed. Hyperventilation was performed with moderate effort and produced mild physiological slowing of the background. EKG: EKG revealed normal sinus rhythm. INTERPRETATION: This EEG is normal during the awake and drowsy states as well as during hyperventilation. PRIOR EEG: none CLINICAL CORRELATION: No focal regions of cerebral dysfunction or epileptiform activity was present. Epilepsy remains a clinical diagnosis and a normal EEG does not rule out epilepsy. Clinical correlation is advised. Laura Gordillo MD Date of service: 06/21/23
== END 2023-06-21 03:02 | disposition home or self-care (01) ==
LOC: RT 03:01
PROVIDERS: PCP Family Medicine; Visit Provider Family Medicine
DX: G45.4 Transient global amnesia
CPT/HCPCS: 95816

== ENCOUNTER → 2023-08-09 00:54 | Outpatient (CLI) | payer MEDICARE, SELFPAY ==
--- NOTE | 2023-08-09 07:30 | DI.DEXA_ITS ---
Exam(s) XR DEXA BONE DENSITY W/WO CEE EXAM: XR DEXA BONE DENSITY W/WO CEE CLINICAL HISTORY: screening for osteoporosis, menopausal disorder,N95.9 TECHNIQUE: COMPARISON: CR XR DEXA BONE DENSITY W/WO CEE from 10/13/2019 FINDINGS: Lateral Spine Image: Unremarkable. No compression deformities identified. Left hip: Total T-Score: 0.1. This compares to 0.3 on the prior examination. Total Z-Score: 1.3 T- and Z-scores: Within normal limits. Lumbar Spine: Total T-Score: 0.8. This compares to 0.3 on the prior examination. Total Z-Score: 2.6 T- and Z-scores: Within normal limits. IMPRESSION: No evidence of osteoporosis.
== END ==
PROVIDERS: PCP Family Medicine; Visit Provider Family Medicine
DX: Z13.820 Encounter for screening for osteoporosis (principal); N95.8 Other specified menopausal and perimenopausal disorders
CPT/HCPCS: 77080

== ENCOUNTER 2023-11-12 03:14 | Outpatient (CLI) | payer MEDICARE, SELFPAY ==
[2023-11-12 12:30] LABS: BUN 23 mg/dL (7-18); CREATININE 0.8 mg/dL (0.55-1.02); Calcium 9.3 mg/dL (8.5-10.1); Calculated LDL 93 mg/dL (<100); Chloride 104 mmol/L (98-107); Cholesterol 203 mg/dL (<200); Estimated GFR 81.72 (mL/min/1.73m2); Glucose 104 mg/dL (74-106); HDL Cholesterol 69 mg/dL (40-60); Potassium 3.7 mmol/L (3.5-5.1); Sodium 139 mmol/L (136-145); TSH (W/Ref FT4) 2.19 uIU/mL (0.36-3.74); Triglyceride 207 mg/dL (<150)
== END 2023-11-12 03:15 | disposition home or self-care (01) ==
LOC: LBO 03:14
PROVIDERS: PCP Family Medicine; Visit Provider Family Medicine
DX: Z13.6 Encounter for screening for cardiovascular disorders (principal); E78.5 Hyperlipidemia, unspecified; I10 Essential (primary) hypertension; E03.9 Hypothyroidism, unspecified
CPT/HCPCS: 36415; 80048; 80061; 84443

== ENCOUNTER 2024-03-27 00:33 | Outpatient (CLI) | payer MEDICARE, SELFPAY ==
--- NOTE | 2024-03-27 12:45 | DI.MAMMO_ITS ---
Exam(s) MAMMO SCREENING EXAM: MAMMO SCREENING CLINICAL HISTORY: screening TECHNIQUE: Mammograms were interpreted according to the usual protocol including computer analysis w [employer] CAD system, tomosynthesis and C-view imaging. COMPARISON: 2014 through 2022 FINDINGS: The breasts are composed of heterogeneously dense fibroglandular densities, Breast Density category C . No suspicious masses or suspicious microcalcifications are seen. No skin thickening or abnormal axillary lymph nodes are seen. There has been no significant change from prior exams. IMPRESSION: BI-RADS Category 1, Negative mammogram. Yearly screening mammography is recommended. Breast Density Category C, heterogeneously Dense. The mammogram demonstrates the patient's breast tissue is dense. Dense breast tissue is very common a nd is not abnormal but dense breast tissue can make it harder to find cancer on a mammogram. Also, de nse breast tissue may increase breast cancer risk. This information about the result of the mammogram report was provided to the patient to raise their awareness. Use this report when you speak with the patient about their risks for breast cancer, which includes their family history. At that time, you may recommend additional screening tests (Ultrasound or MRI) as they might be useful based on their r isk. A negative radiographic report should not delay biopsy if a dominant or clinically suspicious mass is present. Up to ten percent of cancers are not identified on mammography. A negative report may reinforce clinical impression. Adenosis and dense breasts may obscure an underlying neoplasm. False positive reports average 6 to 10%.
== END 2024-03-27 00:53 ==
LOC: DI 00:33
PROVIDERS: PCP Family Medicine; Visit Provider Nurse Practitioner Women's Health
DX: Z12.31 Encounter for screening mammogram for malignant neoplasm of breast (principal); R92.333 Mammographic heterogeneous density, bilateral breasts; R92.323 Mammographic fibroglandular density, bilateral breasts
CPT/HCPCS: 77063; 77067

== ENCOUNTER 2024-07-17 00:53 | Outpatient (CLI) | payer MEDICARE, SELFPAY ==
[2024-07-20 10:03] LABS: Measles IgG Antibody Positive (See Note); Rubella IgG Ab (UVM) Positive (See Note)
== END 2024-07-17 00:54 | disposition home or self-care (01) ==
PROVIDERS: PCP Family Medicine; Visit Provider Family Medicine
DX: E83.110 Hereditary hemochromatosis (principal)
CPT/HCPCS: 36415; 86762; 86765

== ENCOUNTER 2024-09-04 15:34 | Outpatient (CLI) | payer MEDICARE, SELFPAY ==
--- NOTE | 2024-09-04 15:30 | RT.EKG_ITS ---
APPROVED REPORT Exam: Resting ECG Reason for Exam: Chest pain Patient Location: O HR:69 bpm ECG Measurements Heart Rate 69 AXIS CA 146 P 13 QRSd 91 QRS 44 QT 374 T 85 QTc 401 Conclusion Sinus rhythm...normal P axis, V-rate 50- 99 Borderline T abnormalities, lateral leads...T flat/neg, I aVL V5 V6
== END 2024-09-04 15:35 | disposition home or self-care (01) ==
PROVIDERS: PCP Family Medicine; Visit Provider Family Medicine
DX: Z71.89 Other specified counseling (principal); I10 Essential (primary) hypertension; E78.5 Hyperlipidemia, unspecified
CPT/HCPCS: 93010

== ENCOUNTER 2024-09-06 16:39 | Emergency (ER) | payer MEDICARE, SELFPAY ==
--- NOTE | 2024-09-06 16:30 | RT.EKG_ITS ---
APPROVED REPORT Exam: Resting ECG Reason for Exam: upper abdominal pain Patient Location: E HR:91 bpm ECG Measurements Heart Rate 91 AXIS UT 150 P 43 QRSd 72 QRS 49 QT 336 T 88 QTc 414 Conclusion Sinus rhythm. 91 normal axis no stemi
[2024-09-06 16:42] VITALS: BP 160/88; PULSE 91; RESP 16; TEMP 37.3; O2SAT 100
[2024-09-06 17:07] VITALS: BP 160/88; PULSE 91; RESP 16; TEMP 37.3; O2SAT 100
[2024-09-06 17:27] LABS: Abs Immature Grans 0.01 10^3/uL (0.0-0.06); Absolute Basophil Count 0.06 10^3/uL (0.0-0.2); Absolute Eosinophil Count 0.05 10^3/uL (0.0-0.7); Absolute Lymphocyte Count 2.24 10^3/uL (1.2-3.4); Absolute Monocyte Count 0.68 10^3/uL (0.1-0.8); Absolute Neutrophil Count 2.19 10^3/uL (1.2-6.7); Basophils % 1.1 %; HCT 41.2 % (36.0-46.0); HGB 13.6 g/dL (11.2-15.7); Immature Grans % 0.2 %; Lymphocytes % 42.8 %; MCH 31.6 pg (27.0-33.0); MCV 96 fL (80-95); MPV 9.1 fL (8.0-11.0); Neutrophils % 41.9 %; Platelet Count 392 10^3/uL (130-400); RBC 4.31 10^6/uL (3.93-5.22); RDW 13.7 % (11.7-14.6); RDW-SD 48.6 fL; WBC 5.23 10^3/uL (4.4-10.8)
[2024-09-06 17:35] LABS: Bilirubin Negative (Negative); Blood Trace-intact (Negative); Clarity Clear (Clear); Glucose Negative (Negative); Ketones Negative (Negative); Leukocyte Esterase Negative (Negative); Nitrite Negative (Negative); Urobilinogen 0.2 mg/dL (Up to 0.2); pH 5.5 (5-8)
[2024-09-06 17:40] LABS: Bacteria Negative HPF (Negative); C & S Indicated? No; Crystals Negative HPF (Negative); Epithelial Cells Rare HPF (Negative); Mucus Negative (Negative); RBC 0-2 HPF (0-2); WBC Negative HPF (0-5)
[2024-09-06 17:44] LABS: ALT 36 U/L (14-59); AST 20 U/L (15-37); Albumin 3.9 g/dL (3.4-5.0); Alkaline Phosphatase 69 U/L (46-116); BUN 19 mg/dL (7-18); Bilirubin, Total 0.8 mg/dL (0.2-1.0); CREATININE 1.1 mg/dL (0.55-1.02); Calcium 9.6 mg/dL (8.5-10.1); Chloride 105 mmol/L (98-107); Estimated GFR 55.42 (mL/min/1.73m2); Glucose 106 mg/dL (74-106); Lipase 28 U/L (<78); Potassium 3.9 mmol/L (3.5-5.1); Sodium 141 mmol/L (136-145); Total Protein 8.3 g/dL (6.4-8.2)
[2024-09-06 18:02] LABS: Troponin I < 4 ng/L (<or=51)
[2024-09-06 18:05] LABS: TSH (W/Ref FT4) 1.28 uIU/mL (0.36-3.74)
[2024-09-06 18:13] LABS: D-Dimer 471 ng/mlFEU (<500)
--- NOTE | 2024-09-06 18:30 | DI.RAD_ITS ---
Exam(s) XR CHEST 2V PA LATERAL EXAM: XR CHEST 2V PA LATERAL CLINICAL HISTORY: cough, shortness of breath TECHNIQUE: 2D digital imaging was performed. Two views. COMPARISON: CR XR CHEST 2V PA LATERAL from 05/16/2023 FINDINGS: HEART: Normal size. Aorta: Not dilated. PULMONARY VASCULATURE: Normal. MEDIASTINUM: Unremarkable. LUNGS: Clear. PLEURAL SPACE: No pleural effusion or pneumothorax. BONE:Unremarkable for age. SOFT TISSUES: Unremarkable. IMPRESSION: No acute abnormality. DATA REPOSITORY: RADIATION DOSE DELIVERED:
[2024-09-06 18:49] LABS: Lab Add On Test DONE
[2024-09-06 18:53] LABS: Troponin I < 4 ng/L (<or=51)
[2024-09-06 19:07] LABS: Creatine Kinase 180 U/L (26-192)
--- NOTE | 2024-09-06 19:48 | DI.VRAD_ITS ---
PROCEDURE INFORMATION: Exam: XR Chest Exam date and time: 09/06/2024 7:05 PM Age: 64 years old Clinical indication: Cough and shortness of breath TECHNIQUE: Imaging protocol: Radiologic exam of the chest. Views: 2 views. COMPARISON: CR XR CHEST 2V PA LATERAL 05/16/2023 3:40 PM FINDINGS: Lungs: No pulmonary consolidation is seen. No gross focal pulmonary consolidation is seen. There is a 7 mm calcified pulmonary granuloma on the right. A 4 mm round nodular finding adjacent to the left pulmonary hilum probably represents an additional calcified granuloma or pulmonary vessel seen end on, both also present on the comparison exam from May 16, 2023. Pleural spaces: No pleural effusion or pneumothorax is demonstrated. Heart/Mediastinum: The heart appears normal in size. Bones/joints: There is mild S-shaped spinal curvature. Visualized bony structures appear grossly intact, as seen. IMPRESSION: No active disease is seen in the chest. Dictated and Authenticated by: Rubens Diehl MD. Orderin Luly Williamson MD
[2024-09-06] MEDS: Albuterol HFA 8 GM 60 PUFF INH IH (19:56)
--- NOTE | 2024-09-06 20:17 | W.ED.GENAD ---
Discharge Plan Disposition Patient Disposition: Home Condition: Stable Discharge Details Clinical Impression: Atypical chest pain, Shortness of breath Primary Care Provider: Christelle Kathleen ED Provider: Teri Mauricio Home Meds and New Rx's Prescriptions: Continued cholecalciferol (vitamin D3) 25 mcg (1,000 unit) capsule 25 mcg PO DAILY meloxicam 15 mg tablet 15 mg PO DAILY Qty: 30 1RF Rx Instructions: take one tablet daily with food for 2 weeks and repeat if needed cyclobenzaprine 5 mg tablet 5 mg PO QHS PRN (Reason: muscle spasm) Qty: 10 0RF amlodipine 5 mg tablet See Rx Instructions .ROUTE .COMPLEX Qty: 90 3RF Dose Instruction: TAKE 1 TABLET BY MOUTH DAILY Rx Instructions: TAKE 1 TABLET BY MOUTH DAILY ezetimibe 10 mg tablet 10 mg PO DAILY Qty: 90 3RF levothyroxine 75 mcg tablet 75 mcg PO DAILY Qty: 90 1RF losartan 100 mg tablet 100 mg PO DAILY Qty: 90 3RF rosuvastatin 5 mg tablet 5 mg PO .3xw Qty: 40 3RF spironolactone 25 mg tablet 25 mg PO DAILY Qty: 90 3RF (DME) [facility] COVID-19 Ag Self Test Kit MISCELLANEOUS Patient Comments: TEST DIRECTED TODAY Discharge Instructions Instructions: Chest Pain (DC) Additional Instructions: you may try the albuterol 2 puffs every 4-6 hours as needed for cough, wheeze, shortness of breath You may take Tylenol and Motrin as needed for pain Increase your fluid hydration at least eight 8 ounce glasses of water daily and rest for the next several days(limit heavy and repetitive lifting) Please follow-up with your doctor this week and proceed with your outpatient stress test Should you develop worsening shortness of breath fever chills, or any new or worsening complaints, please return for reassessment Referrals: Christelle Kathleen MD [Primary Care Provider] - 1 day HPI General Date/Time Provider Initiated Documentation: 09/06/24 16:52. HPI Narrative: 64-year-old female with intermittent dyspnea and chest pain. Reports mild dyspnea on exertion and occasional chest pain. Today, experienced chest tightness without pain at rest. No nausea, vomiting, or diaphoresis. No history of hypertension or hyperlipidemia. Active lifestyle with daily walks and heavy physical activities. No calf pain or swelling. Last long flight to [place] in April 2024. Currently describes chest tightness and difficulty taking a full breath. Stress test and echocardiogram 10 years ago were negative. Related Data Home Medications ?Medication ?Instructions ?Recorded ?Confirmed cholecalciferol (vitamin D3) 25 25 mcg PO DAILY 03/03/20 09/06/24 mcg (1,000 unit) capsule amlodipine 5 mg tablet See Rx Instructions .Route 07/01/24 09/06/24 .COMPLEX #90 tabs ezetimibe 10 mg tablet 10 mg PO DAILY #90 tabs 07/01/24 09/06/24 levothyroxine 75 mcg tablet 75 mcg PO DAILY #90 tabs 07/01/24 09/06/24 losartan 100 mg tablet 100 mg PO DAILY #90 tabs 07/01/24 09/06/24 rosuvastatin 5 mg tablet 5 mg PO .3xw #40 tabs 07/01/24 09/06/24 spironolactone 25 mg tablet 25 mg PO DAILY #90 tabs 07/01/24 09/06/24 cyclobenzaprine 5 mg tablet 5 mg PO QHS PRN muscle spasm #10 07/17/24 09/06/24 tabs meloxicam 15 mg tablet 15 mg PO DAILY #30 tabs 07/17/24 09/06/24 COVID-19 antigen test ([facility] 09/06/24 09/06/24 COVID-19 Ag Self Test kit) Previous Rx's ?Medication ?Instructions ?Recorded amlodipine 5 mg tablet See Rx Instructions .Route 07/01/24 .COMPLEX #90 tabs ezetimibe 10 mg tablet 10 mg PO DAILY #90 tabs 07/01/24 levothyroxine 75 mcg tablet 75 mcg PO DAILY #90 tabs 07/01/24 losartan 100 mg tablet 100 mg PO DAILY #90 tabs 07/01/24 rosuvastatin 5 mg tablet 5 mg PO .3xw #40 tabs 07/01/24 spironolactone 25 mg tablet 25 mg PO DAILY #90 tabs 07/01/24 cyclobenzaprine 5 mg tablet 5 mg PO QHS PRN muscle spasm #10 07/17/24 tabs meloxicam 15 mg tablet 15 mg PO DAILY #30 tabs 07/17/24 Allergies Allergy/AdvReac Type Severity Reaction Status Date / Time amoxicillin Allergy Mild RASH; Verified 09/06/24 16:49 SWELLING lisinopril AdvReac Intermediate COUGH Verified 09/06/24 16:49 Ooymgbr-XYO-CwF Reductase AdvReac not well Verified 09/06/24 16:49 Inhibitor (Tqahmoh-Ppf-Ryl Reductase Inhibitor) General Stated Complaint: Abd Prob BRITTANI: 3 Exam Narrative Exam Narrative: General Appearance: Alert and oriented, in no acute distress. Vital signs: Within normal limits. HEENT: Within normal limits. Respiratory: Lungs clear to auscultation. Cardiovascular: Gastrointestinal: No reproducible tenderness to abdomen. Genitourinary: Lymphatic: Back, Musculoskeletal: Extremities: Distal pulses intact in all extremities. Skin: Warm and dry, no rash. Neurological: Normal. Psychiatric: Other observations: Course Vital Signs Vital signs: Vital Signs Temperature 37.3 C 09/06/24 16:42 Pulse 91 H 09/06/24 16:42 Respiratory Rate 16 09/06/24 16:42 Blood Pressure 160/88 H 09/06/24 16:42 Pulse Oximetry 100 09/06/24 16:42 Temperature 37.3 C 09/06/24 17:07 Pulse 91 H 09/06/24 17:07 Respiratory Rate 16 09/06/24 17:07 Blood Pressure 160/88 H 09/06/24 17:07 Pulse Oximetry 100 09/06/24 17:07 Pain Level 6 09/06/24 17:07 Lab/Test Results Lab/Test Results: Laboratory Tests Range/Units 09/06/24 09/06/24 09/06/24 17:11 17:15 17:42 WBC (4.4-10.8) 10^3/uL 5.23 RBC (3.93-5.22) 10^6/uL 4.31 Hgb (11.2-15.7) g/dL 13.6 Hct (36.0-46.0) % 41.2 MCV (80-95) fL 96 H MCH (27.0-33.0) pg 31.6 MCHC (32.0-36.0) % 33.0 RDW (11.7-14.6) % 13.7 Plt Count (130-400) 10^3/uL 392 MPV (8.0-11.0) fL 9.1 Immature Gran % % 0.2 Neutrophils % % 41.9 Lymphocytes % % 42.8 Monocytes % % 13.0 Eosinophils % % 1.0 Basophils % % 1.1 Nucleated RBC % (0.0-0.3) % 0.0 Absolute Neutrophils (1.2-6.7) 10^3/uL 2.19 Absolute Lymphocytes (1.2-3.4) 10^3/uL 2.24 Absolute Monocytes (0.1-0.8) 10^3/uL 0.68 Absolute Eosinophils (0.0-0.7) 10^3/uL 0.05 Absolute Basophils (0.0-0.2) 10^3/uL 0.06 D-Dimer (<500) ng/mlFEU 471 Sodium (136-145) mmol/L 141 Potassium (3.5-5.1) mmol/L 3.9 Chloride (98-107) mmol/L 105 Carbon Dioxide (21.0-32.0) mmol/L 25.0 Anion Gap (3-11) mmol/L 11.0 BUN (7-18) mg/dL 19 H Creatinine (0.55-1.02) mg/dL 1.1 H Est GFR (CKD-EPI 2020) (mL/min/1.73m2) 55.42 Glucose (74-106) mg/dL 106 Calcium (8.5-10.1) mg/dL 9.6 Total Bilirubin (0.2-1.0) mg/dL 0.8 AST (15-37) U/L 20 ALT (14-59) U/L 36 Alkaline Phosphatase (46-116) U/L 69 Creatine Kinase (26-192) U/L 180 Troponin I (<or=51) ng/L < 4 Total Protein (6.4-8.2) g/dL 8.3 H Albumin (3.4-5.0) g/dL 3.9 Lipase (<78) U/L 28 TSH (0.36-3.74) uIU/mL 1.28 Urine Color (Yellow) Yellow Urine Clarity (Clear) Clear Urine pH (5-8) 5.5 Ur Specific [place] (1.005-1.025) 1.010 Urine Protein (Neg-Trace) mg/dL Negative Urine Ketones (Negative) mg/dL Negative Urine Blood (Negative) Trace-intact H Urine Nitrite (Negative) Negative Urine Bilirubin (Negative) Negative Urine Urobilinogen (Up to 0.2) mg/dL 0.2 Ur Leukocyte Esterase (Negative) Negative Urine RBC (0-2) HPF 0-2 Urine WBC (0-5) HPF Negative Ur Epithelial Cells (Negative) HPF Rare Urine Crystals (Negative) HPF Negative Urine Bacteria (Negative) HPF Negative Urine Mucus (Negative) Negative Ur Culture Indicated? No Urine Glucose (Negative) mg/dL Negative Add-On Test Request DONE Range/Units 09/06/24 09/06/24 18:15 20:36 WBC (4.4-10.8) 10^3/uL RBC (3.93-5.22) 10^6/uL Hgb (11.2-15.7) g/dL Hct (36.0-46.0) % MCV (80-95) fL MCH (27.0-33.0) pg MCHC (32.0-36.0) % RDW (11.7-14.6) % Plt Count (130-400) 10^3/uL MPV (8.0-11.0) fL Immature Gran % % Neutrophils % % Lymphocytes % % Monocytes % % Eosinophils % % Basophils % % Nucleated RBC % (0.0-0.3) % Absolute Neutrophils (1.2-6.7) 10^3/uL Absolute Lymphocytes (1.2-3.4) 10^3/uL Absolute Monocytes (0.1-0.8) 10^3/uL Absolute Eosinophils (0.0-0.7) 10^3/uL Absolute Basophils (0.0-0.2) 10^3/uL D-Dimer (<500) ng/mlFEU Sodium (136-145) mmol/L Potassium (3.5-5.1) mmol/L Chloride (98-107) mmol/L Carbon Dioxide (21.0-32.0) mmol/L Anion Gap (3-11) mmol/L BUN (7-18) mg/dL Creatinine (0.55-1.02) mg/dL Est GFR (CKD-EPI 2020) (mL/min/1.73m2) Glucose (74-106) mg/dL Calcium (8.5-10.1) mg/dL Total Bilirubin (0.2-1.0) mg/dL AST (15-37) U/L ALT (14-59) U/L Alkaline Phosphatase (46-116) U/L Creatine Kinase (26-192) U/L Troponin I (<or=51) ng/L < 4 Cancelled Total Protein (6.4-8.2) g/dL Albumin (3.4-5.0) g/dL Lipase (<78) U/L TSH (0.36-3.74) uIU/mL Urine Color (Yellow) Urine Clarity (Clear) Urine pH (5-8) Ur Specific [place] (1.005-1.025) Urine Protein (Neg-Trace) mg/dL Urine Ketones (Negative) mg/dL Urine Blood (Negative) Urine Nitrite (Negative) Urine Bilirubin (Negative) Urine Urobilinogen (Up to 0.2) mg/dL Ur Leukocyte Esterase (Negative) Urine RBC (0-2) HPF Urine WBC (0-5) HPF Ur Epithelial Cells (Negative) HPF Urine Crystals (Negative) HPF Urine Bacteria (Negative) HPF Urine Mucus (Negative) Ur Culture Indicated? Urine Glucose (Negative) mg/dL Add-On Test Request Medical Decision Making CBC, CMP, lipase within normal limits. D-dimer negative. Two troponins <4. Chest x-ray shows no acute abnormality, identical to 2023 film with 2 granulomas needing outpatient follow-up. Initial Assessment: 64-year-old female with intermittent chest tightness and mild dyspnea on exertion started a week ago. No nausea, vomiting, or diaphoresis. Symptoms absent at rest. Family history of AR in brother and father. Previous stress test and echocardiogram negative. Currently resting comfortably, in no acute distress. ED Course: - CBC, CMP within normal limits - Lipase within normal limits - D-dimer negative - Two troponins less than four - Chest x-ray per radiology interpretation of my review does not show acute abnormality - Chest x-ray identical to 2023 film with two granulomas that will need outpatient follow-up - Trial of Claritin - Albuterol inhaler with spacer as needed - Motrin and Tylenol for discomfort - Ordered outpatient stress test - Encouraged to follow up with doctor this week for reassessment - Return earlier if new or worsening complaints Final Assessment: Patient with intermittent chest tightness and mild dyspnea on exertion. Diagnostic tests including CBC, CMP, Lipase, D-dimer, troponins, and chest x-ray are within normal limits. Treatment includes Claritin, albuterol inhaler, Motrin, and Tylenol. Outpatient stress test ordered and follow-up with doctor recommended. Clinical Impression: - Chest discomfort Disposition: - Discharge - Follow-Up: Outpatient stress test ordered, follow up with doctor this week for reassessment MDM Components Evaluation: - Number of Differential Diagnoses or Management Options: Chest discomfort - Amount and Complexity of Data Reviewed: CBC, CMP, Lipase, D-dimer, troponins, chest x-ray - Risk of Complication and Morbidity or Mortality: Low risk based on current diagnostic tests and patient?s condition Quality:[facility] Health Related Social Needs: No Data to Display PFSH All Active Problems (Updated 09/06/24 @ 19:40 by LORENA Morataya) Shortness of breath (Acute) Atypical chest pain (Acute) Atypical chest pain (Acute) Osteoarthritis of fingers of both hands (Acute) Hammertoe, bilateral (Acute) Essential hypertension (Chronic 04/14/13) Hyperlipidemia (Chronic) Hypothyroidism (Chronic) Sleep disorder (Chronic) parasomnia: sleep walks (brother also) Hemochromatosis (Chronic) having phlebotomy at [facility]; improved. Postmenopausal (Acute) Fatigue due to excessive exertion (Acute) Sensitivity to sunlight (Acute) Medical History Transient global amnesia (~05/2023) Had evaluation at [facility] Neurology; negative MRI, pending EEG. History of COVID-19 (~09/2021) minimal symptoms Hallux malleus of left foot (02/10/16) Surgical History History of bilateral ligation of fallopian tubes Family History (Updated 07/01/24 @ 09:37 by Christelle Kathleen MD) Mother , 87 Personal history of malignant neoplasm breast Heart disease - AR Breast cancer Hypertension Acid reflux Arthritis Cataracts, bilateral Transient global amnesia Father , 74 Personal history of malignant neoplasm skin Alcohol use disorder Cancer Skin Hypertension Stroke Atherosclerotic cardiovascular disease Prostate cancer Renal artery stenosis Brother Age: 56 Heart disease AR Hypertension Sister Age: 70 Hypertension Arthritis Herniated lumbar intervertebral disc High cholesterol Sister , 2 No problems noted. Brother Age: 68 Hypertension COPD (chronic obstructive pulmonary disease) Son Age: 38 Hypertension Restless leg syndrome Daughter Age: 35 Acid reflux Hypertension Social History Smoking/Tobacco Use Status: Former Tobacco Use tobacco type: cigarettes Quit Date: 05/13/69 Pack-years: 6 Tobacco: How many years used: 5 Second Hand Exposure: Yes Smoking risk assessment performed?: Yes Alcohol Intake: current Alcohol Intake frequency: a few times a week Alcohol type: beer, wine and hard liquor Drug use: Never Substance use type: does not use Caregiver/Support person: No Household members: spouse Housing: house Communication Needs: None Do you need help understanding health information?: Rarely current occupation: Retired [employer] Pets and animals: Yes Pets and animals: cat(s) Sexually active: Yes Do you think of yourself as: straight/heterosexual Current gender identity: female What is your relationship status?: How often do you talk on the phone with friends or family?: three or more times per week How often do you get together with friends or relatives?: three or more times per week How often do you attend lutheran or hindu services?: 4 or more times per year Do you belong to any clubs or organized social groups?: no Panel score (0-1 are the most socially isolated patients): 3 What type of physical activity do you participate in: walking, weight lifting and yoga Duration: > 90 minutes/day Frequency: daily Delmy/Tenriism: Yazidism Special delmy needs: No Seatbelt use: always Helmet use: Yes Helmet use: always Drive intox or ride w/intox [employer] driver: No Do you feel safe at home: Yes Do you feel safe in your relationship?: Yes Female Reproductive History Menstrual Menopause type: natural History History 3 Para 2 Hx # Term Pregnancies Multiple births Hx # Pregnancies Ectopic pregnancies AB induced Hx Number of Living Children AB spontaneous
== END 2024-09-06 20:10 | disposition home or self-care (01) ==
PROVIDERS: Emergency Provider Physician Assistant; PCP Family Medicine
DX: R07.9 Chest pain, unspecified (principal); R06.00 Dyspnea, unspecified
CPT/HCPCS: 99284 ×2; 36415; 80053; 82550; 83690; 93005; 71046; 81003; 81015; 84443; 84484; 85025; 85379; 93010

== ENCOUNTER 2024-09-17 00:47 | Outpatient (CLI) | payer MEDICARE, SELFPAY ==
--- NOTE | 2024-09-17 08:00 | DI.RAD_ITS ---
Exam(s) XR FOOT LT COMPLETE EXAM: XR FOOT LT COMPLETE CLINICAL HISTORY: Hammertofavio,bilat,m20.41,m20.42. TECHNIQUE: 2D digital imaging was performed. Three views. COMPARISON: CR XR FOOT RT COMPLETE from 09/17/2024 FINDINGS: BONES: No acute fracture is present. No bony destructive lesion is seen. JOINTS: No dislocation present. There is severe degenerative changes at the 1st MTP joint with prom inent periarticular spurring. There is also advanced degenerative changes at the 1st metatarsal sesa moids. No hallux valgus. There is varus deviation of the 2nd through 5th toes. Hammertoe deformiti es, greater of the 2nd toe. SOFT TISSUE: Normal. IMPRESSION: Advanced degenerative changes of the 1st MTP joint. Hammertoe deformities. DATA REPOSITORY: RADIATION DOSE DELIVERED:
--- NOTE | 2024-09-17 08:00 | DI.RAD_ITS ---
Exam(s) XR FOOT RT COMPLETE EXAM: XR FOOT RT COMPLETE CLINICAL HISTORY: ishmaelertobruce stahl,m20.41,m20.42. TECHNIQUE: 2D digital imaging was performed. Three views. COMPARISON: No exams were available for comparison FINDINGS: BONES: No acute fracture is present. No bony destructive lesion is seen. JOINTS: No dislocation present. Degenerative changes are noted at the navicular 1st cuneiform joint. The MTP joints are unremarkable. SOFT TISSUE: Normal. IMPRESSION: Moderate degenerative changes at the navicular 1st cuneiform joint. DATA REPOSITORY: RADIATION DOSE DELIVERED:
== END 2024-09-17 01:07 ==
LOC: DI 00:47
PROVIDERS: PCP Family Medicine; Visit Provider Podiatrist
DX: M20.41 Other hammer toe(s) (acquired), right foot (principal); M20.42 Other hammer toe(s) (acquired), left foot
CPT/HCPCS: 99213; 73630

== ENCOUNTER 2024-11-05 00:21 | Outpatient (CLI) | payer MEDICARE, SELFPAY ==
--- NOTE | 2024-11-05 07:15 | DI.US_ITS ---
APPROVED REPORT Exam: Exercise Treadmill Patient Location: Out-Patient Room/Bed: Stress Nurse: Patricia Coe, RN, Torie Torres, RN Ordering Provider:MOLINA OCHOAIGAN, Contact Number: [phone] BMI: 26.75 Baseline Rhythm: Sinus Rhythm Indications: bilateral lower chest tightness with exertion x 2, atypical chest pain, hypertensive Medical History Medical History: HTN, HLD, hypotension, sleep disorder hemochromatosis, post menopausal, transient global amnesia, hx of COVID 19 Cardiac Medications: amlodipine, cyclobenzaprine, ezetimibe, losartan, meloxicam, rosuvastatin, spironolactone Allergies: amoxicillin, lisinopril, statins Cardiac Risk Factors: family hx, HTN, HLD, former smoker Previous Cardiac Procedures: none Pretest Chest Pain Characteristics: none Exercise History: Physically active Physical Disabilities: none Lung Sounds: clear Heart Sounds: Regular Stress Test Details Test: Exercise stress testing was performed using a Ramakrishna protocol. Rest Stress HR Resting HR Supine: 81 bpm Max Heart Rate (APMHR): 154 bpm Resting HR Standin bpm Target HR (85% APMHR): 131 bpm Max HR Achieved: 141 bpm % of APMHR: 92 Recovery HR: 85 bpm HR response to stress: Normal HR response to stress BP Resting BP Supine: 162/82 mmHg Resting BP Standin/88 mmHg Max BP: 200/68 mmHg Recovery BP: 168/76 mmHg BP response to stress: Normal blood pressure response to stress. ECG Resting ECG: Sinus Rhythm Ectopy: none Stress ECG: Sinus Tachycardia ST Change: No significant ST segment changes noted Recovery ECG: Sinus Rhythm Recovery ST Change: No significant ST segment changes noted Clinical Reason for Termination: Patient requested to stop, , Target HR Achieved Stress Symptoms: generalized fatigue Exercise duration: 8 min55 sec Highest Stage Reached: Stage 3: 3.4 mph at 14% grade. Exercise capacity: 10.16 METs Angina Score: None Samuel Treadmill Score: 7.9 Rate Pressure Product: [id number] Stress ECG Conclusion 1. Resting electrocardiogram showed nondiagnostic ST-T abnormalities 2. Patient exercised on the Ramakrishna protocol and completed a workload of 10 METS 3. Normal heart rate and blood pressure response to exercise. The patient achieved 92% of maximal predicted heart rate for age 4. There was no electrocardiographic evidence of myocardial ischemia 5. See stress echo report Samuel Treadmill Score is 7.9 which is Low risk. Stress Test Summary STAGE Time (mins) Speed (mph) Grade (%) HR BP SpO2 SYMPTOMS METS Supine 81 162/82 96 Standing 88 164/88 1 3 1.7 10 101 168/78 96 4.5 2 6 2.5 12 114 180/74 98 7 3 9 3.4 14 141 95 10 1 min recovery 94 200/68 97 3 min recovery 90 168/76 98 6 min recovery 80 148/79 97 Patient requested to stop related to fatigue, negative symptoms during test, left ambulatory with no complaints of discomfort. MPI Conclusion Resting left ventricular systolic function was normal. EF was 60% with normal wall motion Postexercise EF bneita to greater than 75% with augmented contractility of all segments There was no echocardiographic evidence of myocardial ischemia
== END 2024-11-05 00:41 ==
LOC: DI 00:22
PROVIDERS: PCP Family Medicine; Visit Provider Internal Medicine Cardiovascular Disease
DX: R07.89 Other chest pain (principal); I10 Essential (primary) hypertension; E78.5 Hyperlipidemia, unspecified
CPT/HCPCS: 93306; 93350; 93017

== ENCOUNTER → 2025-03-31 10:03 | Outpatient (CLI) | payer MEDICARE, SELFPAY ==
--- NOTE | 2025-03-31 10:12 | DI.RAD_ITS ---
Exam(s) XR HAND LT COMPLETE EXAM: XR HAND LT COMPLETE CLINICAL HISTORY: left hand pain 3rd metacarpal, r/o fx, INJURY OF L HAND, S69.92XA. TECHNIQUE: 2D digital imaging was performed. COMPARISON: No exams were available for comparison FINDINGS: 3 views No evidence of acute fracture of the metacarpals, as per request. Bone density normal. No osseous lesions. No radiopaque foreign bodies. Incidentally noted are small 1 mm para-articular calcifications around the proximal interphalangeal joint of the 4th-ring finger as well as on the medial side of the PIP joint of the 3rd-middle finger and on both sides of the DIP joint of the 3rd-middle finger. There are no erosions at these levels. No osteophytes. Incidentally noted is some degenerative change at the triscaphe joint in the wrist IMPRESSION: No fractures evident. Other incidental findings as above. DATA REPOSITORY: RADIATION DOSE DELIVERED:
== END ==
LOC: DI 10:03
PROVIDERS: PCP Family Medicine; Visit Provider Physician Assistant
DX: S69.92XA Unspecified injury of left wrist, hand and finger(s), initial encounter (principal); X58.XXXA Exposure to other specified factors, initial encounter
CPT/HCPCS: 73130